=== PATIENT | female | born 1975 | race Caucasian/White ===

== ENCOUNTER 2018-01-18 18:05 | Emergency (ER) | payer MEDICAID, SELFPAY ==
[2018-01-18 18:06] VITALS: BP 134/85; PULSE 77; RESP 18; TEMP 36.6; O2SAT 99; BMI 21.9
--- NOTE | 2018-01-18 18:24 | ED.VISSUMM ---
- ER Visit Summary Date of Service: 01/18/18 Chief Complaint: Right eye pain History of Present Illness: The patient is a 42 F presents to the emergency department with right eye pain. The patient symptoms began yesterday. She cannot recall any injury. She states that she had burning in her eye and felt as if there was something in there. She denies any new exposures. She does wear glasses, but has not worn them in approximately 6 months. She was not doing anything when there was significant dust. She states that she does wear mascara, but does not recall any trauma. She denies any visual change. The eye has been watering, but she states her vision is been normal. Physical Examination: Name is relatively unremarkable. There is some focal injection of the conjunctiva at the lateral right eye. There is no appreciable foreign body. There is no hypopyon or hyphema. There is a focal area of injection consistent with episcleritis. There is no foreign body under the lid. There is no hypopyon or hyphema. Pupils are equal round reactive. Test Results: [] Emergency Department Course and Treatment: We do not have floor seen so I was unable to do complete examination. However, under slit lamp, there is no evidence of hypopyon or hyphema. I do not see any obvious dendrites. The patient does have a focal area consistent with episcleritis. Patient was discussed with Dr. Barbour. He does agree with my plan for short course of analgesics and topical antibody ointment. If she has not improved within 12 hours, he states that he will see her in the morning in the ophthalmology clinic. The patient is comfortable this plan of care and will be discharged. Treatment Plan: [] Disposition: Discharge Impression: 1. Episcleritis of the right eye This note was generated with [employer] dictation software. It may contain incorrect words, spelling, and punctuation that were not noted in review of the chart prior to signing ED Disposition - Plan for ED Patient: Chief Complaint: Eye Problem Instructions: ED Chemical Conjunctivitis Prescriptions: Oxycodone HCl/Acetaminophen [Percocet 5/325] 1 tab PO Q6H PRN PRN 2 Days #6 tab PRN Reason: Pain Referrals: Tony Barbour MD [STAFF PHYSICIAN] -
[2018-01-18] MEDS: Tetracaine 0.5% Ophthalmic Bottle 1 DRP RIGHT EYE (18:49)
[2018-01-18] MEDS: Erythromycin Base 1 OPTH.TUBE 1 APPLIC RIGHT EYE (18:59)
== END 2018-01-18 19:07 | disposition home or self-care (01) ==
LOC: ED 18:57
PROVIDERS: Emergency Provider Emergency Medicine; Family Provider Family Medicine; PCP Family Medicine
DX: H15.101 Unspecified episcleritis, right eye (principal); F41.9 Anxiety disorder, unspecified; Z72.0 Tobacco use
CPT/HCPCS: 99282

== ENCOUNTER → 2018-01-29 15:42 | Outpatient (CLI) | payer SELFPAY ==
--- NOTE | 2018-01-29 15:48 | RAD_ITS ---
STUDY: X-RAY CHEST REASON FOR EXAM: Female, 42 years old. Eye pain. Infection versus virus TECHNIQUE: PA and lateral views of the chest. COMPARISON: None. FINDINGS: The lungs are clear and expanded. There is no demonstrated pleural abnormality. Normal size heart. Normal mediastinum and sushant. Normal visualized pulmonary arteries. Normal visualized aortic arch and descending thoracic aorta. Normal visualized thoracic spine. Normal visualized ribs, clavicles, and shoulders. There is no demonstrated abnormality of the visualized soft tissue structures of the upper abdomen. RAD/Chest PA and Lateral IMPRESSION: Normal x-ray examination of the chest. Electronically Signed: Leonardo Alvarez DO at 9:10 EDT Tel , Service support ,
[2018-01-29 17:49] LABS: Color, Urine Yellow (Yellow); Glucose, Dipstick Normal (Normal); Ketone-Dipstick Negative (Negative); Leukocyte Esterase-Dipstick Negative /ul (Negative); Nitrite-Dipstick Negative (Negative); Occult Blood-Urine 150 /ul (Negative); Protein-Dipstick Negative (Negative); Specific Gravity, Urine 1.025 (1.002-1.030); Urine Bilirubin Dipstick Negative (Negative); Urine Clarity Sl. Cloudy (Clear); Urine Urobilinogen Normal (Normal)
[2018-01-29 18:06] LABS: CRP < 2.90 mg/L (0.0-3.0); Rheumatoid Factor < 10.0 IU/mL (<15)
[2018-01-29 18:54] LABS: Erythrocyte Sedimentation Rate 1 mm/hr (0-20)
[2018-02-01 03:07] LABS: Cytoplasmic Ab (C-ANCA) <1:20 titer (Neg:<1:20); QNTFERON TB Ag Minus Nil Value 0.01 IU/mL (.); QNTFERON TB Ag Value 0.04 IU/mL (.); QNTFERON TB Mitogen Value > 10.00 IU/mL (.); QNTFERON TB Nil Value 0.03 IU/mL (.)
[2018-02-01 09:09] LABS: Angiotensin Convert Enzyme 44 U/L (14-82); Perinuclear Ab (P-ANCA) <1:20 titer (Neg:<1:20); QNTIFERON TB Gold Negative (Negative)
[2018-02-01 10:07] LABS: ANTINUCLEAR ANTIBODIES DIRECT Negative (Negative)
== END ==
PROVIDERS: Family Provider Family Medicine; PCP Family Medicine; Visit Provider Ophthalmology
DX: H15.011 Anterior scleritis, right eye (principal)
CPT/HCPCS: 36415; 71046; 81002; 82164; 85652; 86038; 86140; 86256; 86431; 86480

== ENCOUNTER 2018-03-26 17:38 | Emergency (ER) | payer OTHER, SELFPAY ==
[2018-03-26 17:38] VITALS: BP 109/79; PULSE 80; RESP 16; TEMP 37.1; O2SAT 98; BMI 20.8
--- NOTE | 2018-03-26 17:49 | RAD_ITS ---
STUDY: X-RAY - RIGHT KNEE REASON FOR EXAM: Female, 42 years old. Trauma TECHNIQUE: 3 view(s) of the knee. COMPARISON: 01/09/2017 FINDINGS: Again noted are 2 cortical screws in the proximal tibia. There is no evidence of fracture or dislocation. There are no significant degenerative changes. There are no radiodense foreign bodies. RAD/Knee 3 Views IMPRESSION: No fracture or dislocation. Electronically Signed: Moe Johnston, at 18:45 EDT Tel , Service support ,
--- NOTE | 2018-03-26 19:02 | ED.VISSUMM ---
- ER Visit Summary Date of Service: 03/26/18 Chief Complaint: Right knee pain History of Present Illness: The patient is a [address] Brown and Dr. Saldaña had surgery on her right knee 2 years ago for recurrent patellar dislocations. Patient reports that her dog hit the side of her knee 2 days ago and now when she walks it feels as though her kneecap dislocates repeatedly. She describes a sharp, stabbing pain is 9 out of 10 with walking 7 out of 10 at rest. She denies any paresthesias. No other injuries. Physical Examination: Vitals: Stable. Afebrile. General: Well-nourished and well-developed. Head: Normocephalic atraumatic. Neck: Supple, no lymphadenopathy. No JVD. Nontender. Cardiovascular: Regular rate and rhythm. No murmurs. Respiratory: No respiratory distress. Clear to auscultation bilaterally. Abdominal: Soft, nontender, nondistended, normal bowel sounds. No guarding, rebound, or peritoneal signs. Back: Nontender. Extremities: Her tenderness palpation to the right patellar tendon. She is able to extend her knee without any difficulty. I have had her go through full range of motion. She has minimal pain. I do not appreciate any laxity in the patellar tendon. No edema. Skin: Normal color, no rash. Neurologic: Alert and oriented ?3. Cranial nerves II through XII are intact. Normal strength and sensation. Psych: Normal affect. Test Results: Right knee x-ray shows no acute disease. The hardware is intact. Emergency Department Course and Treatment: An [facility] report was obtained which shows she has had 6 prescriptions for opiates in the past year. She is given a dose of oxycodone here. Treatment Plan: Patient will be discharged in a knee immobilizer. Given a prescription for oxycodone. Instructed to follow Dr. Saldaña in 3 days as previously scheduled. Disposition: To home in improved and stable condition. Impression: 1. Right knee pain, acute. This note was generated with [employer] software. It may contain incorrect words, spelling, and punctuation that were not noted in review of the chart prior to signing ED Disposition - Plan for ED Patient: Disposition: Home or Assisted Living Chief Complaint: Lower Extremity Injury Instructions: ED Knee Pain [facility] Prescriptions: Oxycodone HCl/Acetaminophen [Percocet 5/325] 1 tablet PO Q6H PRN PRN 3 Days #12 tablet PRN Reason: Pain Naproxen [Naprosyn] 500 mg PO BID #14 tablet Referrals: Aimee Saldaña DO [STAFF PHYSICIAN] - Keep [facility] appointment
[2018-03-26] MEDS: Naproxen 250 MG Tablet 500 MG PO (19:10)
[2018-03-26] MEDS: oxyCODONE 5 MG Tablet 10 MG PO (19:11)
== END 2018-03-26 19:20 | disposition home or self-care (01) ==
LOC: ED 18:49
PROVIDERS: Emergency Provider Emergency Medicine; Family Provider Family Medicine; PCP Family Medicine
DX: M25.561 Pain in right knee (principal); F41.9 Anxiety disorder, unspecified; Z79.899 Other long term (current) drug therapy
CPT/HCPCS: 73562; 99284

== ENCOUNTER 2018-04-23 17:37 | Emergency (ER) | payer OTHER, SELFPAY ==
[2018-04-23 17:38] VITALS: BP 126/73; PULSE 96; RESP 16; TEMP 36.7; O2SAT 97; BMI 21.1
--- NOTE | 2018-04-23 17:45 | RAD_ITS ---
STUDY: X-RAY - RIGHT KNEE REASON FOR EXAM: Female, 43 years old. Right knee pain. TECHNIQUE: 3 view(s) of the knee. COMPARISON: March 26, 2018 FINDINGS: Normal visualized distal femur. Normal visualized proximal fibula. There are 2 stable appearing screws traversing the proximal tibia. Normal proximal tibiofibular articulation. Normal medial femorotibial compartment. Normal lateral femorotibial compartment. Normal patellofemoral articulation. The soft tissue structures are unremarkable. RAD/Knee 3 Views IMPRESSION: Stable examination. Electronically Signed: Anabelle Nobles MD at 18:29 EDT Tel , Service support ,
--- NOTE | 2018-04-23 18:45 | ED.VISSUMM ---
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 She reports that while getting out of her car today she twisted laterally on a planted right foot and has a stabbing pain in her right knee. She reports pain is 9 out of 10 with walking 7 out of 10 at rest. She did not fall. No other injuries. Physical Examination: Vitals: Stable. Afebrile. General: Well-nourished and well-developed. Head: Normocephalic atraumatic. Neck: Supple, no lymphadenopathy. No JVD. Nontender. Cardiovascular: Regular rate and rhythm. No murmurs. Respiratory: No respiratory distress. Clear to auscultation bilaterally. Abdominal: Soft, nontender, nondistended, normal bowel sounds. No guarding, rebound, or peritoneal signs. Back: Nontender. Extremities: Moderate diffuse tenderness palpation over her entire right knee. There is no point tenderness. Her extensor mechanism is intact. She has pain, but no ligamentous instability with anterior/posterior drawer or medial/lateral stress. She has a negative Mireya bilaterally. Skin: Normal color, no rash. Neurologic: Alert and oriented ?3. Cranial nerves II through XII are intact. Normal strength and sensation. Psych: Normal affect. Test Results: X-ray shows no acute disease. The hardware is intact. Emergency Department Course and Treatment: Patient was treated with naproxen. She refused crutches. Treatment Plan: Patient will be discharged instructions to follow-up with Dr. Saldaña in 1 week if not improving. She has a knee brace and crutches at home. She will be placed on naproxen. Return to the emergency department for any worsening symptoms. Disposition: To home in improved and stable condition. Impression: 1. Right knee pain, acute on chronic. This note was generated with [employer] dictation software. It may contain incorrect words, spelling, and punctuation that were not noted in review of the chart prior to signing ED Disposition - Plan for ED Patient: Disposition: Home or Assisted Living Chief Complaint: Lower Extremity Injury Instructions: ED Knee Pain [facility]O Prescriptions: Naproxen [Naprosyn] 500 mg PO BID #14 tablet Referrals: Chicorelli,Aimee, DO [STAFF PHYSICIAN] - 1 Week if not improving
[2018-04-23] MEDS: Naproxen 250 MG Tablet 500 MG PO (19:28)
== END 2018-04-23 19:30 | disposition home or self-care (01) ==
PROVIDERS: Emergency Provider Emergency Medicine; Family Provider Family Medicine; PCP Family Medicine
DX: M25.561 Pain in right knee (principal); G89.29 Other chronic pain; X50.1XXA Overexertion from prolonged static or awkward postures, initial encounter; Y93.9 Activity, unspecified; Y92.9 Unspecified place or not applicable; F41.9 Anxiety disorder, unspecified; G47.00 Insomnia, unspecified; Z90.89 Acquired absence of other organs; Z90.49 Acquired absence of other specified parts of digestive tract; Z79.899 Other long term (current) drug therapy
CPT/HCPCS: 73562; 99282

== ENCOUNTER → 2018-07-02 11:22 | Outpatient (CLI) | payer OTHER, SELFPAY ==
[2018-07-05 11:36] LABS: HPV HC, High Risk Negative (Negative)
== END ==
PROVIDERS: Visit Provider Obstetrics & Gynecology
DX: Z12.4 Encounter for screening for malignant neoplasm of cervix (principal)
CPT/HCPCS: 87624; 88175; G0145

== ENCOUNTER 2018-07-10 06:28 | Day surgery (SDC) | payer OTHER, SELFPAY ==
--- NOTE | 2018-07-04 16:30 | EKG12_ITS ---
Test Reason : PREOP Blood Pressure : / mmHG Vent. Rate : 056 BPM Atrial Rate : 056 BPM P-R Int : 140 ms QRS Dur : 084 ms QT Int : 430 ms P-R-T Axes : 042 067 037 degrees QTc Int : 414 ms Sinus bradycardia Otherwise normal ECG Confirmed by ZACHARY LAMA ([id number]), fashion editor FERNANDA CEE ([id number]) on 07/09/2018 2:47:37 PM Referred By: Vincenzo Kimbrough Confirmed By:ZACHARY LAMA
[2018-07-04 17:13] LABS: Hemoglobin 13.3 g/dl (12.0-15.0); Mean Corp Hgb Conc 33.3 g/gl (32-36); Mean Corpuscular Hgb 30.9 pg (27.0-32.0); Mean Corpuscular Volume 92.8 fL (81-99); Mean Platelet Vol. 9.9 fl (6.2-12.0); Platelet Count 277 K/mm3 (150-450); RBC Distribution Width CV 12.3 % (11.6-14.6); RBC Distribution Width SD 41.7 fl (35.1-43.9); Red Blood Count 4.31 M/mm3 (4.2-5.4); White Blood Count 9.7 K/mm3 (4.4-11.0)
[2018-07-04 17:28] LABS: Scan Indicated on CBC? Y/N NO
[2018-07-04 17:44] LABS: Pregnancy, Serum, hCG Quali. NEGATIVE Negative (0-9 Nonpreg)
[2018-07-04 17:52] LABS: Partial Thromboplast Time 31.7 Seconds (24.1-36.2)
[2018-07-05 09:23] LABS: AST(SGOT) 14 U/L (15-37); Alanine Aminotransfer ALT/SGPT 19 U/L (13-56); Albumin, Serum 4.3 g/dL (3.2-5.0); Alkaline Phosphatase 78 U/L (45-117); Globulin 3.3 g/dL (2.2-4.2); Protein, Total 7.6 g/dL (6.4-8.2)
[2018-07-10 06:52] VITALS: BP 110/63; PULSE 89; RESP 20; TEMP 36.4; O2SAT 99; BMI 22.6
[2018-07-10 06:53] LABS: Internal QC Validated? YES +Cl - CLEAR BKGD; Pregnancy, Urine Negative Negative
--- NOTE | 2018-07-10 08:23 | DCINST_ITS ---
You will use the following diet at home:: No restrictions Your food should be the consistency of: Regular Discharge Activity: Return to Normal Activity, May Drive, May not drive while taking narcotic pain medications., May Shower Return to work on:: 07/15/18 May shower in (days): 0 May resume sexual activity in: 4-6 weeks Call your doctor if your incision/area has: Sudden Increased Bleeding, Increased Pain/ Swelling, Foul Smelling Discharge Call your doctor if you observe: Fever of 101 or Higher, Inability to urinate, Inability to have a bowel movement, Using more than one pad per hour, Shortness of breath, Chest pain, Calf discomfort, Uncontrolled pain Cleanse incision/area with: Soap & Water Allergies/Adverse Reactions: Allergies docosahexanoic acid [From [facility]] Allergy (Verified 07/05/18 08:15) Hives iron amino acid chelate [From [facility]] Allergy (Verified 07/05/18 08: 15) Hives methyltetrahydrofolate gluc.,folic [From [facility]] Allergy (Verified 07/05/18 08:15) Hives vitamins combination no.39 [From [facility]] Allergy (Verified 07/05/18 08:15) Hives hydrocodone Adverse Reaction (Verified 07/05/18 08:15) Other morphine Adverse Reaction (Verified 07/05/18 08:15) Vomiting topiramate [From Topamax] Adverse Reaction (Verified 07/05/18 08:16) Other B12, DEFFICIRNCY, DIARRHEA Medications to take at Discharge Zolpidem Tartrate [Ambien] 10 mg PO QHS PRN 02/25/16 ALPRAZolam [Xanax] 1 mg PO DAILY 08/20/16 Clonazepam [Klonopin] 1 mg PO TID 01/18/18 ALPRAZolam [Xanax] 1.5 mg PO QHS 07/05/18 Ibuprofen 600 mg PO 4X/DAY #30 tab 07/10/18 Oxycodone [Oxyir] 5 mg PO Q4H PRN PRN 7 Days #14 tab 07/10/18 The following prescriptions were given: Oxycodone [Oxyir] 5 mg PO Q4H PRN PRN 7 Days #14 tab PRN Reason: Pain Ibuprofen 600 mg PO 4X/DAY #30 tab Primary Care Physician: Tony Brown MD [Primary Care Provider] - Test Results: Test results from this visit will be discussed in further detail at your follow- up appointment, if applicable. Please Follow Up With: Vincenzo Kimbrough MD When: 2 weeks Proposed Discharge Date: 07/10/18
--- NOTE | 2018-07-10 08:23 | PCM.OPRPT ---
Problem List (1) MERNA (stress urinary incontinence, female) Status: Chronic Report of Operation Date of Procedure: 07/10/18 Pre-Operative Diagnosis: Stress Urinary Incontinence Post-Operative Diagnosis: Same Surgery/Procedure Performed:: Transvaginal Obturator Miduretral Sling Placement, Cystoscopy Description of Surgical Findings:: Hypermobile urethra. Small cystocele. city magistrate: Mack Pacheco Type of Anesthesia:: General - LMA Anesthesiologist: James Mcgrath Special Medications: none Specimen's removed: none Drains: none Estimated Blood Loss (mL): 100cc Fluids Replaced: 1000cc LR Description of Procedure: Radha was taken to the OR with IV running. She was given Cefotetan 2 grams intravenously prior to the procedure for surgical prophylaxis. MAC anesthesia was introduced without complication. She was then prepped and draped in the dorsal lithotomy position. SCDs were in place from the preoperative area through surgery and into recovery. The bladder was drained. A 2 centimeter midline incision was made from about 1 centimeter distal to the urethral meatus superiorly. The vaginal mucosal was then dissected laterally on both sides. Using a Metzembaum scissors a tunnel was made to the obturator membrane bilaterally. A trocar guide was then placed in this defect on the left side. The sling was then placed through the obturator membrane with exit about 2 cm superior to the urethral meatus and 2 cm lateral to the crural fold. In a similar fashion the sling was placed on the right side. The sling was then adjusted for minimal tension under the urethra. The ends of the sling were then trimmed. The vaginal mucosa was reapproximated with 3-0 Vicryl suture. A cystoscopy was then performed with no bladder mucosal defects noted. She was then reversed from anesthesia and taken to the recovery room in stable condition. Sponge, needle, and instrument counts were correct. Grafts/Implants Used: Desara Midurethral SLing - Complications none - Admit VTE Documentation VTE Present on Admission: No VTE Mechan Device Prophylaxis: SCD's VTE Pharm Prophylaxis ordered?: No Reason prophylaxis not ordered:: Treatment Not Indicated
--- NOTE | 2018-07-10 08:35 | OP.PCM_ITS ---
Problem List (1) MERNA (stress urinary incontinence, female) Status: Chronic Report of Operation Date of Procedure: 07/10/18 Pre-Operative Diagnosis: Stress Urinary Incontinence Post-Operative Diagnosis: Same Surgery/Procedure Performed:: Transvaginal Obturator Miduretral Sling Placement , Cystoscopy Description of Surgical Findings:: Hypermobile urethra. Small cystocele. engineering vice president: Mack Pacheco Type of Anesthesia:: General - LMA Anesthesiologist: James Mcgrath Special Medications: none Specimen's removed: none Drains: none Estimated Blood Loss (mL): 100cc Fluids Replaced: 1000cc LR Description of Procedure: Radha was taken to the OR with IV running. She was given Cefotetan 2 grams intravenously prior to the procedure for surgical prophylaxis. MAC anesthesia was introduced without complication. She was then prepped and draped in the dorsal lithotomy position. SCDs were in place from the preoperative area through surgery and into recovery. The bladder was drained. A 2 centimeter midline incision was made from about 1 centimeter distal to the urethral meatus superiorly. The vaginal mucosal was then dissected laterally on both sides. Using a Metzembaum scissors a tunnel was made to the obturator membrane bilaterally. A trocar guide was then placed in this defect on the left side. The sling was then placed through the obturator membrane with exit about 2 cm superior to the urethral meatus and 2 cm lateral to the crural fold. In a similar fashion the sling was placed on the right side. The sling was then adjusted for minimal tension under the urethra. The ends of the sling were then trimmed. The vaginal mucosa was reapproximated with 3-0 Vicryl suture. A cystoscopy was then performed with no bladder mucosal defects noted. She was then reversed from anesthesia and taken to the recovery room in stable condition. Sponge, needle, and instrument counts were correct. Grafts/Implants Used: Desara Midurethral SLing - Complications none - Admit VTE Documentation VTE Present on Admission: No VTE Mechan Device Prophylaxis: SCD's VTE Pharm Prophylaxis ordered?: No Reason prophylaxis not ordered:: Treatment Not Indicated
[2018-07-10 09:17] VITALS: BP 110/63; BP 130/81; PULSE 74; RESP 18; TEMP 36.7; O2SAT 100
[2018-07-10 09:30] VITALS: BP 110/63; BP 122/82; PULSE 68; RESP 18; O2SAT 100
[2018-07-10 09:45] VITALS: BP 110/63; BP 114/80; PULSE 73; RESP 18; O2SAT 99
[2018-07-10 09:51] VITALS: BP 110/63; BP 115/61; PULSE 60; RESP 18; TEMP 36.3; O2SAT 100
[2018-07-10 10:19] VITALS: BP 110/63
== END 2018-07-10 10:32 | disposition home or self-care (01) ==
LOC: SDC 06:29 → AC 06:29
PROVIDERS: Family Provider Family Medicine; PCP Family Medicine; Visit Provider Obstetrics & Gynecology
PROC: 0TJB8ZZ Inspection of Bladder, Via Natural or Artificial Opening Endoscopic (ICD-10-PCS; CPT 57288; principal; 2018-07-10 08:20)
DX: N39.3 Stress incontinence (female) (male) (principal); N81.10 Cystocele, unspecified; Z79.899 Other long term (current) drug therapy; E78.00 Pure hypercholesterolemia, unspecified; Z86.2 Personal history of diseases of the blood and blood-forming organs and certain disorders involving the immune mechanism; K58.9 Irritable bowel syndrome, unspecified; F41.9 Anxiety disorder, unspecified; F63.81 Intermittent explosive disorder; Z87.891 Personal history of nicotine dependence
CPT/HCPCS: 00860; 57288; 36415; 80076; 81025; 84703; 85027; 85610; 85730; 86850; 86900; 93005; J7120; C1771; J2405

== ENCOUNTER → 2018-07-16 11:35 | Outpatient (CLI) | payer OTHER, SELFPAY | PROVIDERS: Visit Provider Obstetrics & Gynecology | DX: N39.0 Urinary tract infection, site not specified (principal) | CPT/HCPCS: 87086; 87088 ==

== ENCOUNTER 2019-02-14 19:40 | Emergency (ER) | payer OTHER, SELFPAY ==
[2018-10-14 11:36] VITALS: BMI 23.5
[2019-02-14 19:40] VITALS: BP 143/90; PULSE 94; RESP 16; TEMP 35.9; O2SAT 99; BMI 21.6
--- NOTE | 2019-02-14 19:59 | RAD_ITS ---
STUDY: X-RAY - LEFT TIBIA AND FIBULA REASON FOR EXAM: Female, 43 years old. Leg pain TECHNIQUE: 2 view(s) of the tibia and fibula were obtained. COMPARISON: None. FINDINGS: Normal visualized tibia. Normal visualized fibula. The soft tissue structures are unremarkable. RAD/Tibia & Fibula 2 Views IMPRESSION: Normal x-ray examination of the tibia and fibula. Electronically Signed: Leonardo Alvarez DO at 20:36 EDT Tel , Service support ,
--- NOTE | 2019-02-14 20:08 | RAD_ITS ---
STUDY: X-RAY - LEFT FOOT CLINICAL: Female, 43 years old. Left foot pain TECHNIQUE: 3 view(s) of the foot. COMPARISON: None. FINDINGS: Normal talus, calcaneus, and tarsal bones. Normal visualized subtalar, talonavicular, calcaneocuboid, tarsal and tarsometatarsal articulations. Normal metatarsi. Normal metatarsophalangeal joint of the great toe. Normal tibial and fibular sesamoid bones. Normal interphalangeal joint of the great toe. Normal phalanges of the great toe. Normal second through fifth metatarsophalangeal joints. Normal interphalangeal joints and phalanges of the lesser toes. The soft tissue structures are unremarkable. RAD/Foot min 3 Views IMPRESSION: Normal x-ray examination of the foot. Electronically Signed: Leonardo Alvarez DO at 20:23 EDT Tel , Service support ,
--- NOTE | 2019-02-14 21:00 | ED.DCSUM_ITS ---
- ER Visit Summary Date of Service: 02/14/19 Chief Complaint: [Injury to left leg] History of Present Illness: The patient is a 43 F [presents to the emergency department after sustaining an injury to her left leg yesterday. Patient states that she was teaching her daughter how to play hopscotch and she jumped and immediately felt discomfort in her left calf. Patient states that subsequently then she developed pain into her foot and now pain all the way up the leg to her left hip. Patient states she iced her leg all night and had it wrapped in an Herminio wrap. Patient has pain with ambulation. She denies any other injuries.] Physical Examination: [HEENT-PERRLA, EOMI. Cranial nerves II through XII grossly intact. TMs clear. Mucous membranes moist. No adenopathy. Cardiovascular-regular rate and rhythm without murmur or ectopy Lungs-clear to auscultation, chest wall stable without crepitus or subcu emphysema Abdomen-normoactive bowel sounds, soft, nontender, no rebound or rigidity, no peritoneal signs. Extremities-intact ?4, normal range of motion, normal pulses, atraumatic. Left leg-patient has tenderness over the distal calf. The Achilles tendon is intact and she has a normal Enrique's test. Patient also has some tenderness over the dorsum of the midfoot. No obvious deformity. No ecchymosis or bruising noted. Patient has no pain at the knee and she has normal range of motion at the knee. Patient has some mild tenderness into her left buttock. Deep tendon reflexes are plus 2 out of 4 bilaterally at the patella and Achilles.] Test Results: X-rays of the left foot as well as left tib-fib obtained were normal.] Emergency Department Course and Treatment: [Patient refused crutches. She was dispensed for Fouke for pain.] Treatment Plan: [Patient to follow-up with her primary care physician or her orthopedic surgeon within next 5 to 7 days.] Disposition: [Discharged home stable condition] Impression: [Left calf strain Left foot sprain] This note was generated with [employer] dictation software. It may contain incorrect words, spelling, and punctuation that were not noted in review of the chart prior to signing ED Disposition - Plan for ED Patient: Referrals: Tony Brown MD [Primary Care Provider] -
--- NOTE | 2019-02-14 21:00 | ED.DEP ---
ED Disposition - Plan for ED Patient: Instructions: ED Sprain Foot, ED Strain Muscle Ext Prescriptions: Oxycodone HCl/Acetaminophen [Percocet 5/325] 1 tab PO Q6H PRN PRN 3 Days #12 tab PRN Reason: Pain Referrals: Tony Brown MD [Primary Care Provider] - 5-7 Days
[2019-02-14 21:01] VITALS: BP 138/78; PULSE 87; RESP 16; O2SAT 98
[2019-02-14] MEDS: oxyCODONE 5 MG Tablet PO (21:09)
== END 2019-02-14 21:10 | disposition home or self-care (01) ==
LOC: ED 20:25
PROVIDERS: Emergency Provider Emergency Medicine; Family Provider Family Medicine; PCP Family Medicine
DX: S86.912A Strain of unspecified muscle(s) and tendon(s) at lower leg level, left leg, initial encounter (principal); S93.602A Unspecified sprain of left foot, initial encounter; X58.XXXA Exposure to other specified factors, initial encounter; Y93.39 Activity, other involving climbing, rappelling and jumping off; Y92.9 Unspecified place or not applicable; F41.9 Anxiety disorder, unspecified; G43.909 Migraine, unspecified, not intractable, without status migrainosus; Z79.899 Other long term (current) drug therapy; Z72.0 Tobacco use
CPT/HCPCS: 73590; 73630; 99282

== ENCOUNTER 2019-07-06 17:31 | Emergency (ER) | payer OTHER, SELFPAY ==
[2019-07-06 17:33] VITALS: BP 137/78; PULSE 94; RESP 16; TEMP 36.3; O2SAT 98; BMI 23.7
--- NOTE | 2019-07-06 17:50 | RAD_ITS ---
STUDY: X-RAY - LEFT TIBIA AND FIBULA REASON FOR EXAM: Female, 44 years old. Left lower leg pain without reported injury TECHNIQUE: 2 view(s) of the tibia and fibula were obtained. COMPARISON: 02/14/2019 FINDINGS: Normal visualized tibia. Normal visualized fibula. The soft tissue structures are unremarkable. RAD/Tibia & Fibula 2 Views IMPRESSION: Normal x-ray examination of the tibia and fibula. Electronically Signed: Kaushik King MD (Brooks) at 18:10 EDT , Service support ,
--- NOTE | 2019-07-06 17:50 | RAD_ITS ---
STUDY: X-RAY - LUMBAR SPINE REASON FOR EXAM: Female, 44 years old. Pain without reported injury TECHNIQUE: 3 view(s) of the lumbar spine were obtained. COMPARISON: None FINDINGS: Normal lumbar lordosis. There is no substantial scoliosis. There is a normal alignment of the vertebrae. Normal vertebral bodies and endplates. Trace disc space narrowing at L4-L5 and L5-S1. There is no demonstrated fracture. Cholecystectomy clips are noted. RAD/Lumbar Spine 2 or 3 Views IMPRESSION: Minor degenerative disc disease. Electronically Signed: Kaushik King MD (Brooks) at 18:09 EDT , Service support ,
--- NOTE | 2019-07-06 18:19 | ED.VISSUMM ---
- ER Visit Summary Date of Service: 07/06/19 Chief Complaint: Left leg pain History of Present Illness: The patient is a 44 F with left leg pain for days. The pain is in her left lower leg medially and radiates down into her foot, medially. Denies injury. She does have a history of left hip pain. She had left hip pain for over a year. Denies back pain. Denies any history of blood clots, immobilization, or travel. No other symptoms. Physical Examination: Patient has pain on palpation medially to her left lower extremity starting at the distal tibia down into the foot. Inspection is normal. No swelling. Calf is nontender. Good and strong pulses symmetrically. Good range of motion. Hip unremarkable on exam. Back is nontender. Test Results: X-rays of her back show degenerative changes. Tib-fib x-rays are negative. Emergency Department Course and Treatment: I suspect this is a radicular type pain. There is nothing to suggest that is a DVT. X-rays as above. Skin is normal. Muscle compartments are normal. Patient will be treated with a short course of pain medicine. Continue [id number] remedies. She does not tolerate gabapentin. She is requesting a new primary care doctor. I referred her to Dr. Suarez who is on-call for the next available patient. Treatment Plan: As above Disposition: Discharge Impression: 1. Left lower extremity pain This note was generated with [employer] dictation software. It may contain incorrect words, spelling, and punctuation that were not noted in review of the chart prior to signing ED Disposition - Plan for ED Patient: Referrals: Tony Brown MD [Primary Care Provider] -
--- NOTE | 2019-07-06 18:22 | ED.DEP ---
ED Disposition - Plan for ED Patient: Instructions: Sprain, Ankle, with X-Ray Prescriptions: Oxycodone HCl/Acetaminophen [Percocet 5/325] 1 tab PO Q6H PRN PRN 2 Days #8 tab PRN Reason: Pain Prescription Printed Referrals: Gallo Suarez DO [NON CLINICAL AFFILIATE] -
[2019-07-06 18:31] VITALS: BP 108/66; PULSE 71; RESP 15; O2SAT 97
== END 2019-07-06 18:52 | disposition home or self-care (01) ==
LOC: ED 18:23
PROVIDERS: Emergency Provider Emergency Medicine; Family Provider Family Medicine; PCP Family Medicine
DX: M79.605 Pain in left leg (principal); M25.552 Pain in left hip; F41.9 Anxiety disorder, unspecified; Z72.0 Tobacco use
CPT/HCPCS: 72100; 73590; 99282

== ENCOUNTER 2019-11-19 11:57 | Emergency (ER) | payer MEDICAID, SELFPAY ==
[2019-11-19 11:58] VITALS: BP 135/74; PULSE 85; RESP 16; TEMP 36.8; O2SAT 99; BMI 25.0
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
[2019-11-19] MEDS: Ketorolac 60 MG/2 ML Vial IM (14:39)
[2019-11-19 14:51] VITALS: PULSE 88; RESP 17; O2SAT 97
[2019-11-19 14:56] VITALS: PULSE 88; RESP 17; O2SAT 97
== END 2019-11-19 14:57 | disposition home or self-care (01) ==
LOC: ED 14:37
PROVIDERS: Emergency Provider Emergency Medicine
DX: R51 Headache (principal); M54.5 Low back pain; V89.2XXA Person injured in unspecified motor-vehicle accident, traffic, initial encounter; Y93.9 Activity, unspecified; Y92.9 Unspecified place or not applicable; F41.9 Anxiety disorder, unspecified; Z79.899 Other long term (current) drug therapy
CPT/HCPCS: 96372; 99282

== ENCOUNTER 2020-02-04 12:46 | Emergency (ER) | payer MEDICAID, SELFPAY ==
[2020-02-04 12:47] VITALS: BP 148/91; PULSE 123; RESP 20; TEMP 36.8; O2SAT 98; O2SAT 99; BMI 27.5
--- NOTE | 2020-02-04 13:10 | ED.VIS.GEN ---
History of Present Illness Chief Complaint: Suicidal Informant: Patient, - - Police Narrative: Patient presents with police for possible suicidal ideation. Patient states that my is a radha and she will sometimes take photos of knives or guns and sent to him when they are not getting along. Patient states she went to her daughters to try to sawing and assembly supervisor her younger child and take her to the sitter when the older child began yelling at her that she had a gun. Older daughter called police. Police interview with the daughter states that the patient made statements that she has no reason to live. Patient denies suicidal ideation and states this is all a misunderstanding. - Past Medical History (1) Anxiety Status: Chronic (2) Intermittent explosive disorder Status: Chronic (3) Insomnia Status: Chronic Past Medical History - Allergies and Home Meds Allergies/Adverse Reactions: Allergies docosahexanoic acid [From [facility]] Allergy (Verified 02/04/20 12:47) Hives iron amino acid chelate [From [facility]] Allergy (Verified 02/04/20 12:47) Hives methyltetrahydrofolate gluc.,folic [From [facility]] Allergy (Verified 02/04/20 12:47) Hives vitamins combination no.39 [From [facility]] Allergy (Verified 02/04/20 12:47) Hives hydrocodone Adverse Reaction (Verified 02/04/20 12:47) Other morphine Adverse Reaction (Verified 02/04/20 12:47) Vomiting topiramate [From Topamax] Adverse Reaction (Verified 02/04/20 12:47) Other B12, DEFFICIRNCY, DIARRHEA Primary Care Physician: Care Physician,No Primary [Primary Care Provider] - Prior records reviewed: Yes Lives: With Family Smoking Status: Current every day smoker Review of Systems General: Denies: Chills, Fever Eyes: Denies: Visual changes - bilaterally ENT: Denies: Bilateral ear pain Cardiovascular: Denies: Chest pain Respiratory: Denies: Dyspnea, Cough Gastrointestinal: Denies: Vomiting Genitourinary: Denies: Dysuria Musculoskeletal: Denies: Swelling, Extremity Pain Neurological: Denies: Headache Psych: Reports: Anxiety Hematologic: Denies: Easy bruising, Easy bleeding Allergy: Denies: Uticaria Physical Exam Vital Signs/Narrative: Vital Signs Temp Pulse Resp BP Pulse Ox 02/04/20 12:47 98.3 F 123 H 20 H 148/91 H 99 Inital Vital Signs reviewed: Yes General: Well nourished, Well developed Head: Normocephalic ENT: Moist mucous membranes Neck: Supple Cardiovascular: Tachycardia Respiratory: No distress, CTA bilaterally Abdomen: Soft, Nontender Extremities: Nontender Skin: Normal color Neurological: Alert, Oriented x3 Psychological: Agitated - Agitated and yelling. Noncompliant with staff. Patient denies suicidal ideation and states this is all a misunderstanding. Diagnostic/Tx/Re-eval Laboratory Results 02/04/20 02/04/20 02/04/20 13:25 13:25 13:25 WBC 15.9 H RBC 4.69 Hgb 14.3 Hct 42.2 MCV 90.0 MCH 30.5 MCHC 33.9 RDW Std Deviation 40.4 RDW Coeff of Gladis 12.4 Plt Count 318 MPV 9.1 Immature Gran % (Auto) 0.400 Neut % (Auto) 78.2 H Lymph % (Auto) 16.9 L Wagoner % (Auto) 4.0 Eos % (Auto) 0.3 Baso % (Auto) 0.2 Absolute Neuts (auto) 12.4 H Absolute Lymphs (auto) 2.68 Nucleated RBC % 0 Sodium 140 Potassium 3.9 Chloride 109 H Carbon Dioxide 24.0 Anion Gap 7 BUN 8 Creatinine 0.91 Estim Creat Clear Calc 72.47 Est GFR (MDRD) Af Amer 87 Est GFR (MDRD) Non-Af 72 BUN/Creatinine Ratio 8.8 L Glucose 99 Calcium 9.8 Serum , Qual Urine Opiates Screen Urine Methadone Screen Ur Barbiturates Screen Ur Phencyclidine Scrn Ur Amphetamines Screen U Methamphetamin-MDMA U Benzodiazepines Scrn Urine Cocaine Screen U Cannabinoids Screen Ur Drug Screen Comment Ethyl Alcohol < 3.0 02/04/20 02/04/20 13:25 13:30 WBC RBC Hgb Hct MCV MCH MCHC RDW Std Deviation RDW Coeff of Gladis Plt Count MPV Immature Gran % (Auto) Neut % (Auto) Lymph % (Auto) Wagoner % (Auto) Eos % (Auto) Baso % (Auto) Absolute Neuts (auto) Absolute Lymphs (auto) Nucleated RBC % Sodium Potassium Chloride Carbon Dioxide Anion Gap BUN Creatinine Estim Creat Clear Calc Est GFR (MDRD) Af Amer Est GFR (MDRD) Non-Af BUN/Creatinine Ratio Glucose Calcium Serum , Qual NEGATIVE Urine Opiates Screen NEGATIVE Urine Methadone Screen NEGATIVE Ur Barbiturates Screen NEGATIVE Ur Phencyclidine Scrn NEGATIVE Ur Amphetamines Screen NEGATIVE U Methamphetamin-MDMA NEGATIVE U Benzodiazepines Scrn POSITIVE H Urine Cocaine Screen NEGATIVE U Cannabinoids Screen POSITIVE H Ur Drug Screen Comment Ethyl Alcohol - Medical Decision Making Patient initially agreed to take something for her anxiety and when offered shot or pills she requested a shot. She was ordered 2 mg of IM Ativan but when nurse took that to her she refused it saying that she normally takes Xanax and Ativan would not do anything for her. At that point patient was continuing to escalate. I had ordered 20 mg of Geodon. By the time it was able to be pulled patient had started to cooperate more, had changed gown, and had given us urine. Geodon was held. Patient was given her normal p.o. dose of Xanax. Social work was able to speak with the patient. She was also able to speak with the patient's 20-year-old daughter who had called the police. The 20-year-old daughter was contacted by grandmother who had seen the patient take a gun to the car, take a picture of it, and then take the gun back into the house. Because the 20-year-old daughter, boyfriend's 9-year-old daughter, and the patient rolled to go shopping together the 20-year-old daughter did not feel comfortable with her mom driving because of her behavior. Mom became upset with this and a 20 old daughter called police. 20-year-old daughter verifies that the gun is taken away and is secured. Her mother does not have any other access to weapons. They do feel that she will be safe at home. She has never attempted suicide in the past. Patient has agreed to a follow-up phone call tomorrow from social work and was advised if she does not answer this please will be sent to check on her. ED Disposition - Plan for ED Patient: Disposition: Home or Assisted Living Diagnosis: Anxiety Instructions: ED Stress React
[2020-02-04 13:39] LABS: Absolute Lymphocyte Count 2.68 X10^3/uL (0.83-4.51); Absolute Neutrophil Count 12.4 X10^3/uL (2.0-7.7); Basophil# 0.03 X10^3/uL; Basophil% 0.2 % (0-1); Eosinophil# 0.05 X10^3/uL; Eosinophils% 0.3 % (0-5); Hematocrit 42.2 % (37-47); Hemoglobin 14.3 g/dL (12.0-15.0); Lymphocyte # 2.68 X10^3/ul (4.0); Lymphocyte % 16.9 % (19-41); Mean Corp Hgb Conc 33.9 g/dL (32-36); Mean Corpuscular Hgb 30.5 pg (27.0-32.0); Mean Platelet Vol. 9.1 fl (6.2-12.0); Monocyte# 0.64 X10^3/uL; NRBC Flagged by Analyzer 0 % (0-5); Neutrophil # 12.43 X10^3/uL (2.7-7.7); Neutrophil % 78.2 % (47-70); Platelet Count 318 K/mm3 (150-450); RBC Distribution Width CV 12.4 % (11.6-14.6); RBC Distribution Width SD 40.4 fl (35.1-43.9); Red Blood Count 4.69 M/mm3 (4.2-5.4); White Blood Count 15.9 K/mm3 (4.4-11.0)
[2020-02-04 13:47] VITALS: BP 148/91; PULSE 123; RESP 20; TEMP 36.8; O2SAT 99
--- NOTE | 2020-02-04 13:49 | ED.RN ---
PT IN THE ROOM YELLING AND SCREAMING. PT INFORMED BY BRANDON ALONSO THAT IF SHE COOPERATED, SHE WOULD BE ABLE TO HAVE HER PHONE BACK. PT PROVIDED A URINE SAMPLE AND REMOVED ALL CLOTHES AND PUT A DOWN ON. PT WAS GIVEN HER PHONE BUT INFORMED IF SHE CONTINUED TO YELL AND SCREAM AT STAFF AND DID NOT COOPERATE, THE PHONE WOULD BE REMOVED AND SHE WOULD BE MEDICATED TO HELP HER CALM DOWN. PT AGREED TO THE SAME. THE PHONE WAS GIVEN TO THE PT BY DAYLIN
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
[2020-02-04 13:58] LABS: Internal QC Validated? YES +Cl - CLEAR BKGD; Pregnancy, Serum, hCG Quali. NEGATIVE Negative
[2020-02-04 13:59] LABS: Anion Gap 7 (5-15); BUN 8 mg/dL (7-18); BUN/Creat Ratio 8.8 RATIO (10-20); Calcium,Total 9.8 mg/dL (8.5-10.1); Chloride 109 mmol/L (98-107); Creatinine, Serum 0.91 mg/dL (0.55-1.02); EST Glomerular Filtration Rate 72 mL/min (>60); Est Glom Filt Rate - Afr Amer 87 mL/min (>60); Estimated Creatinine Clearance 72.47 ml/min; Glucose 99 mg/dL (74-106); Potassium 3.9 mmol/L (3.5-5.1); Sodium Level 140 mmol/L (136-145)
[2020-02-04 14:01] LABS: Alcohol, Blood (Medical)-Serum < 3.0 mg/dL
[2020-02-04 14:04] LABS: Amphetamine Urine VISTA NEGATIVE (<1000 ng/mL); Barbiturate Urine VISTA NEGATIVE (< 200 ng/mL); Benzodiazepine Urine VISTA POSITIVE (< 200 ng/mL); Cocaine Urine VISTA NEGATIVE (< 300 ng/mL); Ecstacy Urine VISTA NEGATIVE (< 500 ng/mL); Methadone Urine VISTA NEGATIVE (< 300 ng/mL); PCP Urine VISTA NEGATIVE (< 25 ng/mL); THC Urine VISTA POSITIVE (< 50 ng/mL); Vista UDS pH Range 5
[2020-02-04] MEDS: ALPRAZolam 0.5 MG Tablet 1 MG PO (14:36)
--- NOTE | 2020-02-05 11:05 | CM.ED ---
SOCIAL WORK SAFETY PLAN FOLLOW UP CALL CALL TO PATIENT TO FOLLOW UP FROM ED VISIT ON 02/04/2020. PATIENT REPORTS IS DOING FINE. PATIENT STATED YESTERDAY, EVERYTHING WAS BLOWN OUT OF PROPORTION. SUPPORT AND ACTIVE LISTENING PROVIDED. DISCUSSED HEALTHY COPING AND RESOURCES FOR COUNSELING. PATIENT DENIED ANY NEEDS. Kandy AGUILAR MSW, QUALITY ASSURANCE MONITOR CHASSIS.
== END 2020-02-04 15:01 | disposition home or self-care (01) ==
PROVIDERS: Emergency Provider Emergency Medicine
DX: F41.9 Anxiety disorder, unspecified (principal); F17.200 Nicotine dependence, unspecified, uncomplicated
CPT/HCPCS: 80048; 80307; 80320; 84703; 85025; 99284; G0480; J3486

== ENCOUNTER 2020-02-09 15:18 | Emergency (ER) | payer MEDICAID, SELFPAY ==
[2020-02-09 15:19] VITALS: BP 150/122; PULSE 127; RESP 18; TEMP 36.1; BMI 27.3
[2020-02-09 15:21] VITALS: BP 150/122; PULSE 127; RESP 18; TEMP 36.1
--- NOTE | 2020-02-09 15:46 | ED.RN ---
PT WALKING FUNNY BACK FROM [facility]. REPORTS HESITANCY AND BLADDER PAIN PAST 3 DAYS. REPORTS THAT HAS NERVE/SCIATICA SINCE HAD URETHRAL STENTING. THOUGHT WAS GETTING BACK PAIN FROM PERIOD DUE TO BE STARTING BUT TOOK MIDAL.
[2020-02-09 15:59] VITALS: BP 143/77; RESP 16; O2SAT 98
[2020-02-09 16:16] LABS: Mucous, Urine 0 SEEN /hpf (<or=2+)
[2020-02-09 16:17] LABS: Glucose, Dipstick 250 mg/dl (Normal); Ketone-Dipstick Negative (Negative); Leukocyte Esterase-Dipstick 100 /ul (Negative); Nitrite-Dipstick Positive (Negative); Occult Blood-Urine 150 /ul (Negative); Protein-Dipstick Negative (Negative); Specific Gravity, Urine 1.005 (1.002-1.030); Urine Bilirubin Dipstick Negative (Negative); Urine Urobilinogen Normal (Normal)
[2020-02-09 16:29] LABS: Color, Urine Yellow (Yellow); Urine Clarity Sl Cloudy (Clear)
[2020-02-09 16:30] LABS: Bacteria 2+ /hpf (None Seen); Red Blood Cells-Urine 0-5 SEEN /hpf (0-5); Squamous Epithelial Cells - UA 0-5 SEEN /hpf (5-10); White Blood Cells 10-25 SEEN /hpf (0-5)
--- NOTE | 2020-02-09 16:45 | ED.DCSUM_ITS ---
- ER Visit Summary Date of Service: 02/09/20 Chief Complaint: [Hematuria] History of Present Illness: The patient is a 44 F [presents to the emergency department with complaint of hematuria that started today. Patient states that she has been having some odd urinary symptoms for several days where she feels that she has a hard time starting her stream and only urinates a small amount. Today she had a episode where she thought she had to urinate and passed blood through her urine and some small clots. Patient complained of some sharp stabbing pains in the center of her bladder. She denies any fevers. She is had no nausea or vomiting. Patient says she became very anxious. She does have history of anxiety and migraines. Patient's had prior appendectomy as well as cholecystectomy. Patient's had prior tubal ligation and urethral mesh.] Physical Examination: [HEENT-PERRLA, EOMI. Cranial nerves II through XII grossly intact. TMs clear. Mucous membranes moist. No adenopathy. Cardiovascular-regular rate and rhythm without murmur or ectopy Lungs-clear to auscultation, chest wall stable without crepitus or subcu emphysema Abdomen-normoactive bowel sounds, soft. Patient has some mild tenderness over the suprapubic region. There is no rebound, rigidity, or peritoneal signs. Extremities-intact ?4, normal range of motion, normal pulses, atraumatic] Test Results: [Urinalysis obtained showed 100 leukocyte esterase as well as positive nitrites as well as 10-25 WBCs and +2 bacteria.] Emergency Department Course and Treatment: [Patient was started on Bactrim and given first dose in the emergency department] Treatment Plan: [We will treat patient with Bactrim and Pyridium. Patient had a urine culture sent and advised to follow-up with primary care physician in 3 to 5 days.] Disposition: [Discharged home in stable condition] Impression: [Urinary tract infection] This note was generated with [employer] dictation software. It may contain incorrect words, spelling, and punctuation that were not noted in review of the chart prior to signing ED Disposition - Plan for ED Patient: Referrals: Care Physician,No Primary [Primary Care Provider] -
--- NOTE | 2020-02-09 16:47 | ED.DEP ---
ED Disposition - Plan for ED Patient: Instructions: ED CYSTITIS Female Adult Prescriptions: Smz/Tmp Ds [Bactrim Ds] 1 tab PO BID #14 tab Prescription Printed Phenazopyridine HCl [Pyridium] 200 mg PO BID PRN PRN #10 tab PRN Reason: Pain Prescription Printed Referrals: Care Physician,No Primary [Primary Care Provider] - 3-5 Days
[2020-02-09] MEDS: Smz/Tmp Ds Tablet 1 TABLET PO (16:58)
[2020-02-09] MEDS: Phenazopyridine 95 MG Tablet 190 MG PO (16:58)
[2020-02-09 16:59] VITALS: BP 127/82; PULSE 83; RESP 20; O2SAT 95
== END 2020-02-09 17:01 | disposition home or self-care (01) ==
LOC: ED 16:04
PROVIDERS: Emergency Provider Emergency Medicine
DX: N39.0 Urinary tract infection, site not specified (principal); R31.9 Hematuria, unspecified; F41.9 Anxiety disorder, unspecified; G43.909 Migraine, unspecified, not intractable, without status migrainosus; Z79.899 Other long term (current) drug therapy; Z72.0 Tobacco use
CPT/HCPCS: 81001; 87086; 87088; 87186; 99283

== ENCOUNTER 2020-03-21 19:35 | Emergency (ER) | payer MEDICAID, SELFPAY ==
[2020-03-21 19:35] VITALS: BP 127/87; PULSE 108; RESP 16; TEMP 36.4; O2SAT 97; BMI 26.6
[2020-03-21 19:37] VITALS: BP 127/87; PULSE 108; RESP 16; TEMP 36.4; O2SAT 97
--- NOTE | 2020-03-21 21:15 | ED.VIS.DENTA ---
History of Present Illness Chief Complaint: Dental Informant: Patient Onset: Days Context: Sudden Onset Timing: Continuous Relieved by: NSAIDs Narrative: She is a 44-year-old female presenting with dental pain. In December she sustained a dental fracture and a temporary cap was placed on her upper right front tooth. On Sunday she tripped and ground her teeth and then her Fell out. She had significant pain especially associate with cold air touching the notable of the tooth. Her dentist can get her in until the eighth, 2 weeks from now. She is been taking Tylenol Naprosyn with no significant leaf of her pain. She denies any other complaints at this time. Past Medical History - Allergies and Home Meds Allergies/Adverse Reactions: Allergies docosahexanoic acid [From [facility]] Allergy (Verified 02/04/20 12:47) Hives iron amino acid chelate [From [facility]] Allergy (Verified 02/04/20 12:47) Hives methyltetrahydrofolate gluc.,folic [From [facility]] Allergy (Verified 02/04/20 12:47) Hives vitamins combination no.39 [From [facility]] Allergy (Verified 02/04/20 12:47) Hives hydrocodone Adverse Reaction (Verified 02/04/20 12:47) Other morphine Adverse Reaction (Verified 02/04/20 12:47) Vomiting topiramate [From Topamax] Adverse Reaction (Verified 02/04/20 12:47) Other B12, DEFFICIRNCY, DIARRHEA Primary Care Physician: Miguel Alegria MD [Primary Care Provider] - Past Medical History: - - Anxiety Surgical History: noncontributory Smoking Status: Current every day smoker Review of Systems General: Denies: Chills, Fever, Sweats Eyes: Denies: Visual changes - bilaterally, Diplopia ENT: Reports: - - Dental pain. Denies: Rhinorrhea, Sore throat Cardiovascular: Denies: Chest pain, Palpitations Respiratory: Denies: Dyspnea, Cough, Dyspnea on exertion Gastrointestinal: Denies: Abdominal pain, Nausea, Vomiting, Diarrhea, Melena, Hematochezia Genitourinary: Denies: Dysuria, Hematuria, Frequency Musculoskeletal: Denies: Back pain, Extremity Pain Skin: Denies: Rash, Wounds Neurological: Denies: Headache, Weakness, Numbness Physical Exam Vital Signs/Narrative: Vital Signs Temp Pulse Resp BP Pulse Ox 03/21/20 19:37 97.6 F L 108 H 16 127/87 H 97 03/21/20 19:35 97.6 F L 108 H 16 127/87 H 97 Inital Vital Signs reviewed: Yes General: Well nourished, Well developed Head: Normocephalic, Atraumatic ENT: Moist mucous membranes, No rhinorrhea, TM's clear Mouth/Throat: Normal inspection lips/gums, Normal oral mucosa, No focal abscess, Normal posterior oropharynx, No sublingual edema, - - Patient's right upper front tooth is only a nub consistent with dental Falling off. Very tender to palpation. Neck: Supple, No lymphadenopathy, Nontender, No JVD Cardiovascular: Regular rate, Regular rhythm, No murmurs Respiratory: No distress, CTA bilaterally, Chest nontender Skin: Normal color, No rash Neurological: Alert, Oriented x3, Cranial nerves II-XII grossly intact, Normal Strength, Normal Sensation Psychological: Normal affect, - - Anxious Diagnostic/Tx/Re-eval - Medical Decision Making Dental Procedures: Cavet temporary sealant placed Regional and Local Dental Anesthesia: Marcaine, - - Right inferior alveolar block Patient is evaluated for tooth pain associated with her Falling off and nerve root now being exposed. No signs of abscess or associated infection. Dental block is performed and patient receives adequate analgesia with this. Cavet is placed over the tooth. Patient request that I try to put her Back on however I counseled her that I do not feel comfortable doing this and I do not want to cause further damage to the tooth. Patient verbalizes understanding of this. When I stepped out of the room she then puts the cap back on herself. Patient is discharged to follow-up with her dentist. She is given a short course of Percocet for pain control as she is allergic to Holiday/hydrocodone. She has a follow-up appoint with her dentist on April 05. She is encouraged to call her dentist see if she can have her appointment moved up. Patient is counseled on signs and symptoms requiring return to the emergency room. Patient verbalizes agreement and understand this plan. Patient discharged home in stable and improved condition. ED Disposition - Plan for ED Patient: Disposition: Home or Assisted Living Diagnosis: Dental injury Instructions: Dental Trauma Prescriptions: Oxycodone HCl/Acetaminophen [Percocet 5/325] 1 tab PO Q6H PRN PRN 3 Days #12 tab PRN Reason: dental pain Prescription Printed Referrals: Miguel Alegria MD [Primary Care Provider] - Additional Instructions: Follow-up with your dentist as soon as possible. Call on Sunday to see if they get you in any sooner. Avoid cold beverages.
[2020-03-21] MEDS: Bupivacaine 0.5%/Epi 1.8 ML Syringe INFILT (21:51)
== END 2020-03-21 21:56 | disposition home or self-care (01) ==
PROVIDERS: Emergency Provider Emergency Medicine; PCP Internal Medicine
DX: S02.5XXA Fracture of tooth (traumatic), initial encounter for closed fracture (principal); W01.0XXA Fall on same level from slipping, tripping and stumbling without subsequent striking against object, initial encounter; Y93.9 Activity, unspecified; Y92.9 Unspecified place or not applicable; F41.9 Anxiety disorder, unspecified; Z79.899 Other long term (current) drug therapy; F17.200 Nicotine dependence, unspecified, uncomplicated
CPT/HCPCS: 64400; 64999; 99282

== ENCOUNTER 2020-10-08 08:05 | Emergency (ER) | payer MEDICAID, SELFPAY ==
[2020-07-19 14:44] VITALS: BMI 26.6
[2020-10-08 08:05] VITALS: BP 143/88; BP 145/86; PULSE 78; RESP 18; RESP 27; TEMP 36.4; O2SAT 94; O2SAT 98; BMI 25.8
--- NOTE | 2020-10-08 08:07 | CT_ITS ---
STUDY: CT ABDOMEN AND PELVIS WITHOUT CONTRAST REASON FOR EXAM: Female, 45 years old. Bilateral flank pain radiating into front since this morning, hx stones. Prior tubal ligation, appendectomy, cholecystectomy, uterine ablation. RADIATION DOSAGE (If Supplied By Facility): CTDIvol = ( 6.48 ) mGy, DLP = ( 317.28 ) mGycm TECHNIQUE: Transaxial images were obtained from the dome of the diaphragm to the symphysis pubis without oral contrast, and without intravenous contrast. Sagittal and coronal images were reconstructed. Individualized dose optimization techniques were used for this CT. COMPARISON: Comparison is made with prior study dated 11/28/2015. FINDINGS: The visualized lung bases are unremarkable. The visualized portions of the heart are within normal limits. Normal liver. There are surgical clips in the gallbladder fossa consistent with a prior cholecystectomy. Normal spleen. Normal pancreas. Normal bilateral adrenal glands. Normal right kidney. 2 mm calculus in the upper pole calyx of the left kidney. Mild degree of left hydronephrosis. I suspect a 3 mm calculus in the distal portion of the left ureter. Normal visualized stomach. Normal small intestine. Normal colon. The patient is status post appendectomy. Normal abdominal aorta. Normal inferior vena cava. Normal retroperitoneum. Normal urinary bladder. 1.4 cm follicle in the left ovary. Normal abdominal wall. Normal osseous structures. CT/Abdomen/Pelvis without Cont IMPRESSION: Stable left ureteral calculus. Mild left hydronephrosis. I suspect a 3 mm calculus in the distal portion of the left ureter. Electronically Signed: Conor David, at 8:59 EST , Service support ,
[2020-10-08] MEDS: Ondansetron 4 MG/2 ML Vial IV (08:18)
[2020-10-08] MEDS: Ketorolac 15 MG/ML Vial IV (08:18)
[2020-10-08] MEDS: HYDROmorphone 1 MG/ML Syringe IV (08:19)
[2020-10-08] MEDS: 0.9% Normal Saline 1,000 ML 250 ML IV (08:20)
[2020-10-08 08:36] LABS: Absolute Lymphocyte Count 2.25 X10^3/uL (0.83-4.51); Absolute Neutrophil Count 9.7 X10^3/uL (2.0-7.7); Basophil# 0.03 X10^3/uL; Basophil% 0.2 % (0-1); Eosinophil# 0.11 X10^3/uL; Eosinophils% 0.9 % (0-5); Hematocrit 41.1 % (37-47); Hemoglobin 13.8 g/dL (12.0-15.0); Lymphocyte # 2.25 X10^3/ul (4.0); Lymphocyte % 17.8 % (19-41); Mean Corp Hgb Conc 33.6 g/dL (32-36); Mean Corpuscular Hgb 30.6 pg (27.0-32.0); Mean Corpuscular Volume 91.1 fL (81-99); Mean Platelet Vol. 9.9 fl (6.2-12.0); Monocyte# 0.54 X10^3/uL; Monocyte% 4.3 % (0-10); NRBC Flagged by Analyzer 0 % (0-5); Neutrophil % 76.5 % (47-70); Platelet Count 336 K/mm3 (150-450); RBC Distribution Width SD 40.1 fl (35.1-43.9); Red Blood Count 4.51 M/mm3 (4.2-5.4); White Blood Count 12.7 K/mm3 (4.4-11.0)
--- NOTE | 2020-10-08 08:41 | ED.DCSUM_ITS ---
History of Present Illness Chief Complaint: Abd Pain Onset: Today Context: Sudden Onset Timing: Continuous Current Severity: Moderate Maximum Severity: Severe Narrative: The patient is a 45-year-old female medical history significant for prior kidney stone that presents to the emergency department with rather acute onset left- sided flank pain. The patient states the symptoms started at 4:00 this morning. It woke her from sleep. She has been nauseated with 2 bouts of emesis. She states the pain is mostly in her left flank. It has not migrated. She denies fever but does think she is had some chills. She denies dysuria or hematuria. She states that she has had stones before and she is past the mall. She is never required lithotripsy or stenting. Prior similar symptoms: Yes Recent Illness/Hospitalization: No Past Medical History - Allergies and Home Meds Allergies/Adverse Reactions: Allergies docosahexanoic acid [From [facility]] Allergy (Verified 02/04/20 12:47) Hives gabapentin Allergy (Verified 07/19/20 14:46) Other Narcolepsy iron amino acid chelate [From [facility]] Allergy (Verified 02/04/20 12:47) Hives methyltetrahydrofolate gluc.,folic [From [facility]] Allergy (Verified 02/04/20 12:47) Hives vitamins combination no.39 [From [facility]] Allergy (Verified 02/04/20 12:47) Hives hydrocodone Adverse Reaction (Verified 02/04/20 12:47) Other morphine Adverse Reaction (Verified 02/04/20 12:47) Vomiting topiramate [From Topamax] Adverse Reaction (Verified 02/04/20 12:47) Other B12, DEFFICIRNCY, DIARRHEA Primary Care Physician: Clara Mojica MD [STAFF PHYSICIAN] - Prior records reviewed: Yes Past Medical History: - - Prior kidney stone, depression, anxiety, migraines Surgical History: noncontributory Smoking Status: Current every day smoker Review of Systems General: Denies: Chills, Fever, Sweats Eyes: Denies: Visual changes - bilaterally, Diplopia ENT: Denies: Rhinorrhea, Sore throat Cardiovascular: Denies: Chest pain, Palpitations Respiratory: Denies: Dyspnea, Cough, Dyspnea on exertion Gastrointestinal: Reports: Nausea, Vomiting. Denies: Abdominal pain, Diarrhea, Melena, Hematochezia Genitourinary: Denies: Dysuria, Hematuria, Frequency Musculoskeletal: Reports: Back pain. Denies: Extremity Pain Skin: Denies: Rash, Wounds Neurological: Denies: Headache, Weakness, Numbness Physical Exam Vital Signs/Narrative: Vital Signs Temp Resp BP Pulse Ox 10/08/20 08:05 97.6 F L 27 H 143/88 H 94 Inital Vital Signs reviewed: Yes General: Well nourished, Well developed, No Acute Distress Head: Normocephalic, Atraumatic Eyes: Perrl, EOMI ENT: Moist mucous membranes, No rhinorrhea Neck: Supple, Nontender Cardiovascular: Regular rate, Regular rhythm, No murmurs Respiratory: No distress, CTA bilaterally, Chest nontender Abdomen: Soft, Nontender, Nondistended, Normal bowel sounds Back: Nontender, Normal Inspection Extremities: Nontender, No edema Skin: Normal color, No rash Neurological: Alert, Oriented x3, Cranial nerves II-XII grossly intact, Normal Strength, Normal Sensation Psychological: Normal affect, Normal Mood Diagnostic/Tx/Re-eval Clinical Impression(s) from Imaging Studies Abdomen/Pelvis CT 10/08/20 08:07 IMPRESSION: Stable left ureteral calculus. Mild left hydronephrosis. I suspect a 3 mm calculus in the distal portion of the left ureter. Electronically Signed: Conor David, at 8:59 EST , Service support , Abnormal Lab Results 10/08/20 10/08/20 08:25 08:25 WBC 12.7 H RBC 4.51 Hgb 13.8 Hct 41.1 MCV 91.1 MCH 30.6 MCHC 33.6 RDW Std Deviation 40.1 RDW Coeff of Gladis 12.0 Plt Count 336 MPV 9.9 Immature Gran % (Auto) 0.300 Neut % (Auto) 76.5 H Lymph % (Auto) 17.8 L [place] % (Auto) 4.3 Eos % (Auto) 0.9 Baso % (Auto) 0.2 Absolute Neuts (auto) 9.7 H Absolute Lymphs (auto) 2.25 Nucleated RBC % 0 Sodium 139 Potassium 3.7 Chloride 108 H Carbon Dioxide 25.0 Anion Gap 6 BUN 12 Creatinine 0.94 Estim Creat Clear Calc 69.44 Est GFR (MDRD) Af Amer 83 Est GFR (MDRD) Non-Af 69 BUN/Creatinine Ratio 12.8 Glucose 117 H Calcium 9.3 - Medical Decision Making The patient presents with rather acute onset left-sided flank pain that woke her from sleep this morning. She states she cannot get comfortable. She does have a history of kidney stone and states this feels similar. IV was established. Patient was given analgesics and antiemetics. Screening labs were obtained were relatively unremarkable. With pain medication, she is feeling markedly improved. Patient underwent CT. She does have evidence of a small 3 mm stone distally. There is no significant hydro-. Urine was obtained. There is few bacteria, but no significant whites. There is mostly blood. We will treat the patient with Keflex given obstructing stone. She has not had a fever. At this point, her pain is controlled. I do feel that she is safe for outpatient therapy. Patient was counseled on concerning symptoms and reasons to return. S he will be discharged home. Impression 1. 3 mm left urolithiasis with colic ED Disposition - Plan for ED Patient: Instructions: ED Kidney Stone w/ Colic Prescriptions: Cephalexin [Keflex] 500 mg PO Q6 #40 cap Prescription Printed Oxycodone HCl/Acetaminophen [Percocet 5/325] 1 tab PO Q6H PRN PRN 3 Days #12 tab PRN Reason: Pain Prescription Printed Ondansetron [Zofran Odt] 4 mg PO Q8H PRN PRN #10 tab PRN Reason: Nausea Prescription Printed Referrals: Clara Mojica MD [STAFF PHYSICIAN] -
[2020-10-08 08:42] LABS: Anion Gap 6 (5-15); BUN 12 mg/dL (7-18); BUN/Creat Ratio 12.8 RATIO (10-20); Calcium,Total 9.3 mg/dL (8.5-10.1); Chloride 108 mmol/L (98-107); Creatinine, Serum 0.94 mg/dL (0.55-1.02); EST Glomerular Filtration Rate 69 mL/min (>60); Est Glom Filt Rate - Afr Amer 83 mL/min (>60); Estimated Creatinine Clearance 69.44 ml/min; Glucose 117 mg/dL (74-106); Potassium 3.7 mmol/L (3.5-5.1); Sodium Level 139 mmol/L (136-145)
[2020-10-08 09:21] LABS: Mucous, Urine 0 SEEN /hpf (<or=2+)
[2020-10-08 09:23] LABS: Color, Urine Yellow (Yellow); Glucose, Dipstick Normal (Normal); Ketone-Dipstick 5 mg/dl (Negative); Leukocyte Esterase-Dipstick 25 /ul (Negative); Nitrite-Dipstick Negative (Negative); Occult Blood-Urine 250 /ul (Negative); Protein-Dipstick 30 mg/dl (Negative); Urine Bilirubin Dipstick Negative (Negative); Urine Clarity Sl. Cloudy (Clear); Urine Urobilinogen Normal (Normal)
[2020-10-08 09:31] LABS: Red Blood Cells-Urine 25-50 SEEN /hpf (0-5); White Blood Cells 0-5 SEEN /hpf (0-5)
[2020-10-08 09:32] LABS: Bacteria 2+ /hpf (None Seen); Squamous Epithelial Cells - UA 0-5 SEEN /hpf (5-10)
[2020-10-08] MEDS: HYDROmorphone 0.5 MG/0.5 ML SYRINGE IV (09:42)
[2020-10-08 10:24] VITALS: BP 137/75
== END 2020-10-08 10:30 | disposition home or self-care (01) ==
LOC: ED 09:33
PROVIDERS: Emergency Provider Emergency Medicine; PCP Family Medicine
DX: N13.2 Hydronephrosis with renal and ureteral calculous obstruction (principal); F41.9 Anxiety disorder, unspecified; F32.9 Major depressive disorder, single episode, unspecified; Z87.442 Personal history of urinary calculi; Z90.49 Acquired absence of other specified parts of digestive tract; Z79.899 Other long term (current) drug therapy; F17.200 Nicotine dependence, unspecified, uncomplicated
CPT/HCPCS: 74176; 80048; 81001; 85025; 96361; 96374; 96375; 96376; 99284; J7030; A4216; J2405

== ENCOUNTER 2020-10-19 08:41 | Day surgery (SDC) | payer MEDICAID, SELFPAY ==
[2020-10-19] VITALS (11 sets, daily range): BP systolic 117–139; BP diastolic 61–91; PULSE 77–94; RESP 16–18; TEMP 36.6–37.6; O2SAT 96–100
--- NOTE | 2020-10-19 09:34 | PCM.HP.STD ---
Problem List (1) Left ureteral calculus Status: Acute History of Present Illness Date of Admission: 10/19/20 Chief Complaint: left abdominal pain, left ureteral stone The patient is a 45 year old F who was diagnosed with a left ureteral calculus after having significant left-sided flank and abdominal discomfort. She is continued to have pain requiring narcotics and Zofran at home. Informed consent was obtained and she agreed to proceed with surgical intervention for her stone. Past Medical History Past Medical History (Chronic Problems): Chronic Problems (Last Reviewed 10/14/18 @ 11:40 by Kathe Casillas) Anxiety (Chronic) Intermittent explosive disorder (Chronic) Insomnia (Chronic) MERNA (stress urinary incontinence, female) (Chronic) Medical History: Medical History (Last Reviewed 10/19/20 @ 09:[address] Clara Mojica MD) Anemia D64.9 Arthritis M19.90 History of uterine ablasion Knee pain M25.569 Limb weakness R29.898 Shoulder pain M25.519 Chronic neck and back pain M54.2, M54.9, G89.29 Allergies docosahexanoic acid [From [facility]] Allergy (Verified 10/19/20 09:26) Hives gabapentin Allergy (Verified 10/19/20 09:26) Other Narcolepsy iron amino acid chelate [From [facility]] Allergy (Verified 10/19/20 09:26) Hives methyltetrahydrofolate gluc.,folic [From [facility]] Allergy (Verified 10/19/20 09:26) Hives vitamins combination no.39 [From [facility]] Allergy (Verified 10/19/20 09:26) Hives hydrocodone Adverse Reaction (Verified 10/19/20 09:26) Other morphine Adverse Reaction (Verified 10/19/20 09:26) Vomiting topiramate [From Topamax] Adverse Reaction (Verified 10/19/20 09:26) Other B12, DEFFICIRNCY, DIARRHEA Home Medications: Ambulatory Orders Medication Instructions Recorded Zolpidem Tartrate [Ambien] 10 mg PO QHS PRN 02/25/16 ALPRAZolam [Xanax] 1 mg PO DAILY 08/20/16 ALPRAZolam [Xanax] 1.5 mg PO QHS 09/07/18 meloxicam 15 mg tablet 15 mg PO DAILY #30 tab 07/19/20 Cephalexin [Keflex] 500 mg PO Q6 #40 cap 10/08/20 Ondansetron [Zofran Odt] 4 mg PO Q8H PRN PRN #10 tab 10/08/20 Surgical History: Surgical History (Last Reviewed 10/19/20 @ 09:[address] Clara Mojica MD) History of appendectomy Z90.49 History of bilateral tubal ligation Z98.51 History of cholecystectomy Z90.49 History of tonsillectomy Z90.89 Surgical History: noncontributory Smoking Status: Current some day smoker Tobacco Use: Cigarettes Review of Systems Constitutional: Denies: Anorexia, Chills, Fever Eyes: Denies: Redness HEENT: Denies: Visual Changes Cardiovascular: Denies: Chest Pain, Chest Pressure Respiratory: Denies: Cough, Shortness of Breath Gastrointestinal: Reports: Abdominal Pain, Nausea. Denies: Diarrhea Genitourinary: Reports: Hematuria, Hesitancy, Urgency. Denies: Dysuria, Retention Musculoskeletal: Denies: Muscle pain Skin: Denies: Skin Changes Neurological: Denies: Difficulty swallowing Endocrine: Denies: Change in Body Habitus VTE Information - Inpt Only VTE Present on Admission: Yes VTE Mechan Device Prophylaxis: SCD's VTE Pharm Prophylaxis ordered?: No Reason prophylaxis not ordered:: Treatment Not Indicated - Physical Exam Vitals/I&O's: Body Mass Index (BMI) 25.8 General: Alert, Oriented x3, Cooperative HEENT: Atraumatic, Normocephalic Oral: Moist Mucosa Neck: Supple, Trachea Midline Lungs: Normal air movement Cardiovascular: Regular rate Abdomen: Soft, Non Tender, Non-Distended Extremities: No clubbing, No Calf Tenderness Skin: No rashes Musculoskeletal: No Muscle Wasting Neurological: Cranial nerves II-XII grossly intact, Neuro grossly intact Psych/Mental Status: Appropriate, Alert and oriented to time, place, person, mood and affect Microbiology Past 72 Hours 10/18/20 16:09 Interface Orders SARS-CoV-2 Antigen (Rapid) - Final Current Medications Sodium Chloride (0.9% Nacl Peripheral Flush Adult/Peds) 5 - 15 ml IV UD PRN PRN Reason: SALINE FLUSH Assessment/Plan All Active Problems (Last Reviewed 10/14/18 @ 11:40 by Kathe Casillas) Left ureteral calculus (Acute) Medial epicondylitis of right elbow (Acute) Diarrhea (Acute) Cystoscopy, left ureteroscopy, holmium laser lithotripsy, left ureteral stent insertion Procedure Criteria Procedure Type: Elective - Uncontrolled pain COVID Risk Discussion: The surgeon/proceduralist and patient have discussed in detail the risk of exposure to and/or potential harm posed by the COVID-19 virus with having a surgery/procedure at this time versus the risk of delaying the surgery/procedure. It is not possible to know either the risk of delaying the surgery or procedure or chance of getting an infection with perfect accuracy, but a joint decision was made between the patient and the surgeon/proceduralist to proceed at this time with the scheduled surgery/procedure as indicated on the consent form.
--- NOTE | 2020-10-19 09:38 | OP.PCM_ITS ---
Problem List (1) Left ureteral calculus Status: Acute Report of Operation Date of Procedure: 10/19/20 Pre-Operative Diagnosis: Left ureteral calculus Post-Operative Diagnosis: Same Surgery/Procedure Performed:: Cystoscopy, left ureteroscopy, holmium laser lithotripsy, stone stone basket extraction, left ureteral stent insertion Type of Anesthesia:: General Description of Procedure: Patient is a 45-year-old female presented to the office with pain secondary to a ureteral calculus on the left side. She failed a trial of passage and now presents for definitive intervention. Informed consent was obtained including a discussion of COVID-19 risks. The patient was taken to the operating room and placed on the operating room table. Anesthesia monitored the head, neck, airway, IV access and vital signs throughout the case. Once anesthesia was appropriate ministered the patient was placed into dorsal lithotomy position was prepped and draped in usual sterile fashion. The cystoscope was then inserted through the urethra under direct visualization into the urinary bladder. The bladder mucosa in its entirety was visualized and found to be without mass, lesion, ulceration and foreign body. The left ureteral orifice was located on the area of the trigone in correct anatomic position. It was gently cannulated with a 0.035 Glidewire which met resistance in the distal third of the ureter but then passed into the renal pelvis as visualized on fluoroscopy. Using the semirigid ureteroscope, the distal ureter was intubated and the stone was identified. It was lasered into small pieces using the holmium laser with a 270 ?m fiber. Once the pieces were small enough, a stone basket was used to retrieve the pieces. Ureteroscopy was performed proximal to the area of the stone. There were no injuries to the ureter. The safety wire was then used to pass a 6 [place] 24 cm stent with a curl in the renal pelvis in the urinary bladder. Patient's bladder was then emptied and the case was terminated. She was taken to the recovery room in good condition. There were no complications during the procedure. Grafts/Implants Used: 6 x 24 JJ stent - Complications None - Admit VTE Documentation VTE Present on Admission: Yes VTE Mechan Device Prophylaxis: SCD's VTE Pharm Prophylaxis ordered?: No Reason prophylaxis not ordered:: Treatment Not Indicated
[2020-10-19] MEDS: Lactated Ringers 1,000 ML 100 ML IV ×2 (09:46→12:45)
--- NOTE | 2020-10-19 10:00 | DCINST_ITS ---
Discharge Diet: No Restrictions Discharge Activity: May not drive while taking narcotic pain medications., May Shower May resume sexual activity in: No Restrictions Call your doctor if you observe: Fever of 101 or Higher, Inability to urinate, Inability to have a bowel movement, Calf discomfort, Uncontrolled pain Allergies/Adverse Reactions: Allergies docosahexanoic acid [From [facility]] Allergy (Verified 10/19/20 09:26) Hives gabapentin Allergy (Verified 10/19/20 09:26) Other Narcolepsy iron amino acid chelate [From [facility]] Allergy (Verified 10/19/20 09:) Hives methyltetrahydrofolate gluc.,folic [From [facility]] Allergy (Verified 10/19/20 09:) Hives vitamins combination no.39 [From [facility]] Allergy (Verified 10/19/20 09:) Hives hydrocodone Adverse Reaction (Verified 10/19/20 09:) Other morphine Adverse Reaction (Verified 10/19/20 09:) Vomiting topiramate [From Topamax] Adverse Reaction (Verified 10/19/20 09:26) Other B12, DEFFICIRNCY, DIARRHEA Medications to take at Discharge Zolpidem Tartrate [Ambien] 10 mg PO QHS PRN 02/25/16 ALPRAZolam [Xanax] 1 mg PO DAILY 08/20/16 ALPRAZolam [Xanax] 1.5 mg PO QHS 07/05/18 meloxicam 15 mg tablet 15 mg PO DAILY #30 tab 07/19/20 Cephalexin [Keflex] 500 mg PO Q6 #40 cap 10/08/20 Ondansetron [Zofran Odt] 4 mg PO Q8H PRN PRN #10 tab 10/08/20 Cephalexin [Keflex] 500 mg PO Q12 3 Days #6 cap 10/19/20 Oxycodone HCl/Acetaminophen [Percocet 5/325] 1 tablet PO Q8H PRN PRN 7 Days #6 tablet 10/19/20 Phenazopyridine [Pyridium] 100 mg PO TID #30 tab 10/19/20 The following prescriptions were given: Cephalexin [Keflex] 500 mg PO Q12 3 Days #6 cap Transmission Status: Pending to [facility] Oxycodone HCl/Acetaminophen [Percocet 5/325] 1 tablet PO Q8H PRN PRN 7 Days #6 tablet PRN Reason: Pain Transmission Status: Received by [facility] Phenazopyridine [Pyridium] 100 mg PO TID #30 tab Transmission Status: Pending to [facility] [facility] Primary Care Physician: Celine Villalobos MD [Primary Care Provider] - Test Results: Test results from this visit will be discussed in further detail at your follow- up appointment, if applicable. Please Follow Up With: Clara Mojica MD When: call office for appt Proposed Discharge Date: 10/19/20
[2020-10-19] MEDS: oxyCODONE 5 MG Tablet PO (13:30)
[2020-10-19] MEDS: Acetaminophen 325 MG Tablet PO (13:30)
== END 2020-10-19 13:47 | disposition home or self-care (01) ==
LOC: SDC 08:50 → AC 08:51
PROVIDERS: PCP Family Medicine; Referring Provider Urology; Visit Provider Urology
PROC: 0TJ98ZZ Inspection of Ureter, Via Natural or Artificial Opening Endoscopic (ICD-10-PCS; CPT 52352; principal; 2020-10-19 10:00)
DX: N20.1 Calculus of ureter (principal); Z20.828 Contact with and (suspected) exposure to other viral communicable diseases; F41.9 Anxiety disorder, unspecified; N39.3 Stress incontinence (female) (male); M19.90 Unspecified osteoarthritis, unspecified site; G43.909 Migraine, unspecified, not intractable, without status migrainosus; Z86.2 Personal history of diseases of the blood and blood-forming organs and certain disorders involving the immune mechanism; Z87.442 Personal history of urinary calculi; Z79.899 Other long term (current) drug therapy; F17.210 Nicotine dependence, cigarettes, uncomplicated
CPT/HCPCS: 00918; 52356; 76000; 82360; 87426; C9803; J7120; C1769; C2617; J2405

== ENCOUNTER → 2020-10-27 15:58 | Outpatient (CLI) | payer MEDICAID, SELFPAY ==
--- NOTE | 2020-10-27 16:10 | CT_ITS ---
STUDY: CT ABDOMEN AND PELVIS WITHOUT CONTRAST REASON FOR EXAM: Female, 45 years old. LEFT FLANK PAIN, REMOVED KS ON LEFT 10/19/20, STENT REMOVED YESTERDAY RADIATION DOSAGE (If Supplied By Facility): CTDIvol = ( 6.50 ) mGy, DLP = ( 324.97 ) mGycm TECHNIQUE: Transaxial images were obtained from the dome of the diaphragm to the symphysis pubis without oral contrast, and without intravenous contrast. Sagittal and coronal images were reconstructed. Individualized dose optimization techniques were used for this CT. COMPARISON: 10/08/2020 FINDINGS: The visualized lung bases are unremarkable. The visualized portions of the heart are within normal limits. Normal liver. Gallbladder has been removed surgically.. Normal spleen. Normal pancreas. Normal bilateral adrenal glands. No evidence for renal obstruction or ureteral calculus.. Status post left ureteral vesicle stent removal Previously noted left renal calculus not visualized and may be consistent with recent passage of stone Normal visualized stomach. Nonspecific ileus with diffuse fecal retention in the colon.. Postop change status post appendectomy. Normal abdominal aorta. Normal inferior vena cava. Normal retroperitoneum. Incompletely distended thick-walled bladder likely of no significance. Tiny air bubble within the bladder likely iatrogenic. Left ovarian cyst is noted measuring approximately 2.35 x 2 cm Normal abdominal wall. Normal osseous structures. CT/Abdomen/Pelvis without Cont IMPRESSION: No evidence for renal obstruction at this time status post ureterovesical stent removal. Previously noted left renal calculus on October 08 is not visualized at this time and presumably has been passed. Left ovarian cyst measuring approximately 2.35 x 2 cm Electronically Signed: Tony Dong MD at 16:46 EST , Service support ,
== END ==
PROVIDERS: PCP Family Medicine; Visit Provider Urology
DX: R10.9 Unspecified abdominal pain (principal); N20.1 Calculus of ureter
CPT/HCPCS: 74176

== ENCOUNTER → 2020-11-10 08:30 | Outpatient (CLI) | payer MEDICAID, SELFPAY ==
--- NOTE | 2020-11-10 08:33 | US_ITS ---
STUDY: ULTRASOUND OF THE FEMALE PELVIS - COMPLETE REASON FOR EXAM: Female, 45 years old. LEFT OVARIAN CYST SEEN ON CT LMP: 10/04/2020. TECHNIQUE: Transvaginal TECHNICAL QUALITY: Adequate. COMPARISON: Comparison is made with prior CT scan and pelvis dated 10/27/2020. FINDINGS: The uterus is anteverted and is in a midline position. The uterus measures 9.4 cm x 5.2 cm x 4.5 cm. There is a Nabothian cyst of the cervix. The endometrium measures 10.6 mm in thickness, and is hyperechoic. There is no demonstrated endometrial mass. There is no demonstrated myometrial mass. The myometrium is of heterogeneous echotexture. This is suggestive of fibroid change. No focal fibroid is seen. I.U.D. - The patient does not have an I.U.D. The right ovary is visualized. The right ovary measures 1.8 cm x 2.1 cm x 0.9 cm. There is no right ovarian cyst or ovarian mass. There is no visualized right adnexal mass or complex lesion. There is normal arterial and normal venous vascularity. The left ovary is visualized. The left ovary measures 2.3 cm x 2.2 cm x 1.6 cm. There is no left ovarian cyst or ovarian mass. There is no visualized left adnexal mass or complex lesion. There is normal arterial and normal venous vascularity. There is no fluid in the cul-de-sac. The pre void volume of the bladder was 69.4 ml. Polycystic ovary disease: No. US/Transvaginal Non- IMPRESSION: Heterogeneous echotexture of the uterus. No left ovarian cyst is seen at this time. Electronically Signed: Conor David, at 14:56 EST , Service support ,
== END ==
PROVIDERS: PCP Family Medicine; Referring Provider Family Medicine; Visit Provider Family Medicine
DX: N83.202 Unspecified ovarian cyst, left side (principal)
CPT/HCPCS: 76830

== ENCOUNTER 2020-12-19 15:55 | Emergency (ER) | payer MEDICAID, SELFPAY ==
[2020-12-19 15:56] VITALS: BP 136/81; PULSE 90; RESP 18; TEMP 36.6; O2SAT 98; BMI 25.0
--- NOTE | 2020-12-19 16:22 | CT_ITS ---
EXAM: CT ABDOMEN AND PELVIS WITHOUT INTRAVENOUS CONTRAST CLINICAL INDICATION: LT FLANK PAIN TECHNIQUE: Helically acquired images were obtained of the abdomen and pelvis without intravenous contrast. This CT exam was performed using one or more of the following dose reduction techniques: automated exposure control, adjustment of the mA and/or kV according to patient size, and/or use of iterative reconstruction technique. This report was created using [employer] report generation technology. COMPARISON: 10/27/2020 FINDINGS: LOWER THORAX: Unremarkable. Lung bases are clear. No cardiomegaly. No significant pericardial effusion. ABDOMEN: LIVER: Unremarkable. Homogeneous. GALLBLADDER AND BILE DUCTS: Gallbladder surgically absent. No intra- or extrahepatic biliary ductal dilation. PANCREAS: Unremarkable. No focal cystic mass. SPLEEN: Unremarkable. Normal size without focal cystic or solid mass. ADRENALS: Unremarkable. No nodules. KIDNEYS AND URETERS: Unremarkable. Normal renal size and position. No hydronephrosis. STOMACH AND BOWEL: Unremarkable. No stomach or bowel distention. No focal inflammatory change. PELVIS: APPENDIX: No evidence of acute appendicitis. BLADDER: Unremarkable. REPRODUCTIVE: Left ovarian cyst/follicle is decreased in size as prior study. ABDOMEN and PELVIS: INTRAPERITONEAL SPACE: Unremarkable. No ascites or other fluid collection. No free air. BONES/JOINTS: Unremarkable. No suspicious lytic or blastic abnormality. SOFT TISSUES: Unremarkable. No discrete abdominal or pelvic wall hernia. VASCULATURE: There are vascular phleboliths of the pelvis, similar since the prior study. Abdominal aorta is non-dilated. LYMPH NODES: Unremarkable. No enlarged lymph nodes. CT/Abdomen/Pelvis without Cont IMPRESSION: No hydronephrosis or urinary tract calcifications. Electronically Signed: Kaushik King MD ([place]) at 17:12 EST , Service support ,
[2020-12-19] MEDS: Ketorolac 30 MG/ML Syringe IV (16:48)
[2020-12-19] MEDS: 0.9% Normal Saline 1,000 ML 250 ML IV (16:48)
[2020-12-19 17:00] LABS: Absolute Lymphocyte Count 2.57 X10^3/uL (0.83-4.51); Absolute Neutrophil Count 10.2 X10^3/uL (2.0-7.7); Anion Gap 7 (5-15); BUN 9 mg/dL (7-18); BUN/Creat Ratio 11.2 RATIO (10-20); Basophil# 0.03 X10^3/uL; Basophil% 0.2 % (0-1); Calcium,Total 9.3 mg/dL (8.5-10.1); Chloride 106 mmol/L (98-107); Creatinine, Serum 0.81 mg/dL (0.55-1.02); EST Glomerular Filtration Rate 82 mL/min (>60); Eosinophil# 0.07 X10^3/uL; Eosinophils% 0.5 % (0-5); Est Glom Filt Rate - Afr Amer 100 mL/min (>60); Estimated Creatinine Clearance 80.58 ml/min; Glucose 115 mg/dL (74-106); Hematocrit 42.8 % (37-47); Hemoglobin 14.5 g/dL (12.0-15.0); Lymphocyte # 2.57 X10^3/ul (4.0); Lymphocyte % 18.9 % (19-41); Mean Corp Hgb Conc 33.9 g/dL (32-36); Mean Corpuscular Hgb 30.7 pg (27.0-32.0); Mean Corpuscular Volume 90.7 fL (81-99); Mean Platelet Vol. 9.3 fl (6.2-12.0); Monocyte# 0.66 X10^3/uL; Monocyte% 4.9 % (0-10); NRBC Flagged by Analyzer 0 % (0-5); Neutrophil # 10.18 X10^3/uL (2.7-7.7); Platelet Count 311 K/mm3 (150-450); Potassium 3.6 mmol/L (3.5-5.1); RBC Distribution Width CV 11.8 % (11.6-14.6); RBC Distribution Width SD 39.2 fl (35.1-43.9); Red Blood Count 4.72 M/mm3 (4.2-5.4); Sodium Level 142 mmol/L (136-145); White Blood Count 13.6 K/mm3 (4.4-11.0)
--- NOTE | 2020-12-19 17:06 | ED.DCSUM_ITS ---
- ER Visit Summary Date of Service: 12/19/20 Chief Complaint: Left flank pain History of Present Illness: The patient is a 45 F who presents with left flank pain that has been constant for the past 3 weeks. Patient describes the pain as stabbing. Patient states nothing makes it better and nothing makes it worse. Patient states she had does have a history of kidney stones. Patient admits to some chronic dysuria but denies any hematuria. Patient denies any nausea or vomiting. Patient denies any fevers but admits to subjective chills. Patient denies any chest pain or shortness of breath. Physical Examination: Vital signs are stable. Patient is afebrile. Patient is in no acute distress. Oral mucosa is pink and moist. Neck is supple. Trachea is midline. There is no JVD. Heart was regular rate and rhythm. Lungs are clear and equal bilaterally. Abdomen is soft. Bowel sounds are normal. There is left upper quadrant tenderness. There is no rebound or guarding noted. Cranial nerves II through XII are intact. There are no focal motor or sensory deficits noted. Remedies are intact. There is no calf tenderness or edema. Test Results: CBC shows a mild leukocytosis of 13.6. Basic metabolic profile is within normal limits. Urinalysis shows occult blood of 150 with 10-25 red blood cells and 10-[address] scan of the abdomen pelvis was obtained. There is no hydronephrosis noted. There are no ureteral calcifications noted. This was interpreted by the radiologist and reviewed by myself. Emergency Department Course and Treatment: Patient was given a dose of Toradol. Patient was given IV fluids. Patient had minimal improvement with this. Patient was given a dose of Zofran and morphine. Patient was feeling better on reevaluation. Patient was instructed to follow-up with her primary care physician and urologist in 5 to 7 days. Patient was given a prescription for Percocet. Patient was instructed to return if worse in any way. Patient understood and was agreeable with the plan. All questions were answered. Disposition: Discharge home Impression: Left flank pain This note was generated with [employer] dictation software. It may contain incorrect words, spelling, and punctuation that were not noted in review of the chart prior to signing ED Disposition - Plan for ED Patient: Disposition: Home or Assisted Living Diagnosis: Left flank pain Instructions: ED Flank Pain, Uncertain Cause Prescriptions: Oxycodone HCl/Acetaminophen [Percocet 5/325] 1 tab PO Q6H PRN PRN 3 Days #12 tab PRN Reason: Pain Prescription Printed Referrals: Clara Mojica MD [STAFF PHYSICIAN] - 3-5 Days
[2020-12-19 17:36] LABS: Bacteria 0 SEEN /hpf (None Seen); Mucous, Urine 0 SEEN /hpf (<or=2+); White Blood Cells 0 SEEN /hpf (0-5)
[2020-12-19] MEDS: Ondansetron 4 MG/2 ML Vial IV (17:46)
[2020-12-19] MEDS: Morphine 4 MG/ML Syringe IV (18:05)
[2020-12-19 18:14] LABS: Color, Urine Yellow (Yellow); Glucose, Dipstick 50 mg/dl (Normal); Ketone-Dipstick 5 mg/dl (Negative); Leukocyte Esterase-Dipstick Negative /ul (Negative); Nitrite-Dipstick Negative (Negative); Occult Blood-Urine 150 /ul (Negative); Protein-Dipstick Negative (Negative); Urine Bilirubin Dipstick Negative (Negative); Urine Clarity Sl. Cloudy (Clear); Urine Urobilinogen 1 mg/dl (Normal)
[2020-12-19 18:21] LABS: Amorphous Sediment 1+ PHOS; Red Blood Cells-Urine 10-25 SEEN /hpf (0-5); Squamous Epithelial Cells - UA 10-25 SEEN /hpf (5-10)
[2020-12-19 18:31] VITALS: BP 143/104; PULSE 82; RESP 18; O2SAT 99
[2020-12-19 19:14] VITALS: RESP 18
== END 2020-12-19 19:16 | disposition home or self-care (01) ==
PROVIDERS: Emergency Provider Emergency Medicine; PCP Family Medicine
DX: R10.9 Unspecified abdominal pain (principal); R30.0 Dysuria; R68.83 Chills (without fever); Z87.442 Personal history of urinary calculi
CPT/HCPCS: 74176; 80048; 81001; 85025; 96361; 96374; 96375; 99284; J7030; A4216; J2405

== ENCOUNTER 2021-03-05 09:08 | Emergency (ER) | payer OTHER, MEDICAID, SELFPAY ==
[2021-03-05 09:11] VITALS: BP 138/79; PULSE 90; RESP 17; TEMP 36.2; O2SAT 97; BMI 26.8
[2021-03-05 09:20] VITALS: BP 138/79; PULSE 90; RESP 16; RESP 17; TEMP 36.2; O2SAT 97
--- NOTE | 2021-03-05 09:25 | CT_ITS ---
STUDY: CT ABDOMEN AND PELVIS WITHOUT CONTRAST REASON FOR EXAM: Female, 45 years old. Pain RADIATION DOSAGE (If Supplied By Facility): CTDIvol = ( 7.06 ) mGy, DLP = ( 354.32 ) mGycm TECHNIQUE: Transaxial images were obtained from the dome of the diaphragm to the symphysis pubis without oral contrast, and without intravenous contrast. Sagittal and coronal images were reconstructed. Individualized dose optimization techniques were used for this CT. COMPARISON: 12/19/2020 FINDINGS: The visualized lung bases are unremarkable. The visualized portions of the heart are within normal limits. Normal liver. There are surgical clips in the gallbladder fossa consistent with a prior cholecystectomy. Normal spleen. Normal pancreas. Normal bilateral adrenal glands. Normal right kidney. Normal left kidney. Normal visualized stomach. Normal small intestine. Normal colon. There are surgical clips in the region of the appendix consistent with a prior appendectomy. Normal abdominal aorta. Normal inferior vena cava. Normal retroperitoneum. Normal urinary bladder. Normal abdominal wall. Normal osseous structures. CT/Abdomen/Pelvis without Cont IMPRESSION: Normal unenhanced CT of the abdomen and pelvis. Electronically Signed: Vlad Junior MD at 10:11 EDT Tel , Service support ,
--- NOTE | 2021-03-05 09:27 | ED.VIS.GI ---
HPI HPI - GI History of Present Illness Chief Complaint: Complaint Detail of Chief Complaint: Abdominal pain and hematuria for about a month Informant: patient Abdominal Pain/Flank Pain Timing: Intermittent Current Severity: 05/07 Nausea/Vomiting/Emesis GI Symptom: Positive for Nausea Diarrhea/Melena/Hematochezia GI Symptom: Negative for Diarrhea Stool Quality: Negative for Loose Associated Symptoms Associated Symptoms: Positive for Hematuria Narrative Narrative: Patient presents with multiple complaints for about a month. She complains of lower back pain and hematuria intermittently. This morning she had bright red blood in her urine. Patient is noticed a little bit of a foul odor to the urine. She is had nausea but no vomiting. She describes lower abdominal pain. Patient's had prior cholecystectomy and appendectomy. Patient does have history of urethral mesh. Patient has history of kidney stones. She denies fevers. No COVID-19 exposures and she is fully vaccinated. Prior similar symptoms: No Recent Illness/Hospitalization: No PFSH PFSH Medical History (Updated 03/05/21 @ 10:[address] Mylene Kaur, ) Anemia Arthritis Chronic neck and back pain History of uterine ablasion Knee pain Limb weakness Shoulder pain Home Medications zolpidem 10 mg PO QHS PRN 02/25/16 [History Last Taken 01/17/18 5 MG] alprazolam 1 mg PO TID PRN PRN 08/20/16 [History Last Taken 01/18/18 0.5 MG] oxycodone-acetaminophen [Percocet] 1 tab PO Q8H PRN 2 Days #7 tab 03/05/21 [Rx Last Taken Unknown] Allergy/AdvReac Type Severity Reaction Status Date / Time docosahexanoic acid Allergy Hives Verified 03/05/21 09:10 [From [facility]] gabapentin Allergy Other Verified 03/05/21 09:10 iron amino acid chelate Allergy Hives Verified 03/05/21 09:10 [From [facility]] methyltetrahydrofolate Allergy Hives Verified 03/05/21 09:10 gluc.,folic [From [facility]] vitamins Allergy Hives Verified 03/05/21 09:10 combination no.39 [From [facility]] hydrocodone AdvReac Itching Verified 03/05/21 09:10 morphine AdvReac Vomiting Verified 03/05/21 09:10 topiramate [From Topamax] AdvReac Other Verified 03/05/21 09:10 Surgical History History of appendectomy History of bilateral tubal ligation History of cholecystectomy History of tonsillectomy Social History Smoking Status: Light Smoker (<10/day) ROS ROS ED Constitutional Constitutional ED: Reports systems reviewed and no addt'l complaints, except as documented, chills and sweats; Denies body ache(s), change in weight or fever(s) Eyes Eyes: Denies acute decrease in peripheral vision, change in vision, double vision or loss of vision ENT ENT ED: Reports none; Denies ear pain, lip swelling, loss taste/smell, neck pain, otalgia or sore throat Cardiovascular Cardiovascular: Reports none; Denies abdominal pain, chest pain with activity, leg edema, lightheadedness, palpitations, rapid heart rate or syncope Respiratory/Chest Respiratory/Chest: Reports none; Denies change in mental status, dry cough, dyspnea, hemoptysis, shortness of breath at rest or shortness of breath with exertion Gastrointestinal Gastrointestinal: Reports none, abdominal pain and nausea; Denies change in stool character, diarrhea, hematemesis, hematochezia, melena, rectal bleeding or vomiting Genitourinary Genitourinary ED: Reports none and hematuria; Denies abdominal discomfort, anuria, dysuria, genital pain or polyuria Musculoskeletal Musculoskeletal: Reports none; Denies arthralgias, back pain, difficulty walking, extremity pain, muscle weakness or myalgias Integumentary Reports none; Denies abscess or rash Neurologic Neurologic: Reports none; Denies abnormal gait, confusion, focal weakness, frequent falls, headache(s), loss of vision, numbness, paresthesias, radicular pain, vertigo or weakness Psychiatric Psychiatric: Reports systems reviewed and no addt'l complaints, except as documented and none; Denies behavioral changes, confusion, difficulty concentrating, hallucinations, suicidal ideation, tactile hallucinations or visual hallucinations Endocrine Endocrinology: Denies none, cold intolerance, excessive sweating, fatigue or heat intolerance Hematologic/Lymphatic Hematologic/Lymphatic: Reports none; Denies anemia, easy bleeding or easy bruising Allergic/Immunologic Allergic/Immunologic ED: Denies as per HPI, none, lip swelling, mouth swelling, throat swelling, tongue swelling or hives EXAM Physical Exam Const Vital Signs: 03/05/21 09:11 03/05/21 09:20 Temperature 97.2 F L 97.2 F L Temperature Source Temporal Temporal Pulse Rate 90 90 Respiratory Rate 17 17 Blood Pressure 138/79 H 138/79 H Blood Pressure Mean 98 98 Pulse Ox 97 97 Oxygen Delivery Method Room Air Room Air Positive well nourished and well developed General Appearance ED: well developed and NAD HEENT Reports TM's clear and moist mucous membranes normocephalic and atraumatic; Negative for trauma or tenderness Tympanic Membrane ED: Yes TM's clear Eyes PERRL and EOMs intact bilaterally General Eye ED: Negative for pale conjunctiva or scleral icterus Neck no lymphadenopathy, supple and no JVD General: Negative for tenderness Chest Wall inspection of chest normal and palpation of chest normal Chest: Negative for tenderness Resp normal respiratory effort and clear to auscultation bilaterally Effort and Inspection: Negative for respiratory distress or pain with movement Auscultation: Negative for rhonchi, wheezes or diminished lung sounds Cardio regular rate, regular rhythm, S1 normal heart sound, S2 normal heart sound and no murmurs Peripheral Pulses: pulses 2+ throughout GI normal to inspection, nondistended, normoactive bowel sounds, soft to palpation, non-distended and no masses; Negative for non-tender Palpation: soft, tender LLQ and RLQ and guarding Back/Spine no thoracic nor lumbar tenderness; Negative for no CVA tenderness General Back: CVA tenderness bilateral Cervical Spine: Negative for cervical spine tenderness Extremity normal to inspection General Extremety ED: Negative for edema General Extremity: Negative for edema Neuro oriented x3, CN's II-XII intact bilaterally, no sensory deficits noted and gait normal Sensorium / Orientation: awake, alert, oriented to person, oriented to place and oriented to time Motor Exam: strength 5/5 throughout and strength abnormal Psych mental status grossly normal Skin no rashes or lesions noted and no wounds MDM MDM MDM Narrative Medical decision making narrative: Patient labs unremarkable. Urine without infection. CT flank unremarkable. At this point etiology of patient's discomfort unclear. Patient will be referred to her urologist for follow-up if persistent hematuria. Lab Data Attestation: I reviewed the patient's lab results. Labs: Laboratory Results - last 24 hr 03/05/21 03/05/21 03/05/21 09:18 09:30 09:30 WBC 9.7 RBC 4.56 Hgb 13.9 Hct 40.6 MCV 89.0 MCH 30.5 MCHC 34.2 RDW Std Deviation 40.1 RDW Coeff of Gladis 12.4 Plt Count 387 MPV 9.0 Immature Gran % (Auto) 0.600 Neut % (Auto) 70.3 H Lymph % (Auto) 21.9 [place] % (Auto) 6.5 Eos % (Auto) 0.4 Baso % (Auto) 0.3 Absolute Neuts (auto) 6.8 Absolute Lymphs (auto) 2.11 Nucleated RBC % 0 Sodium 138 Potassium 3.3 L Chloride 106 Carbon Dioxide 26.0 Anion Gap 6 BUN 8 Creatinine 0.92 Estim Creat Clear Calc 70.95 Est GFR (MDRD) Af Amer 85 Est GFR (MDRD) Non-Af 70 BUN/Creatinine Ratio 8.7 L Glucose 98 Calcium 9.6 Serum , Qual Urine Color Yellow Urine Clarity Clear Urine pH 6.5 Ur Specific [place] 1.010 Urine Protein Negative Urine Glucose (UA) Normal Urine Ketones 5 H Urine Occult Blood 150 H Urine Nitrite Negative Urine Bilirubin Negative Urine Urobilinogen Normal Ur Leukocyte Esterase 25 H Urine RBC 0 SEEN Urine WBC 0 SEEN Ur Squamous Epith Cells 0-5 SEEN Urine Bacteria RARE Urine Mucus 0 SEEN Urine Yeast 1+ 03/05/21 09:30 WBC RBC Hgb Hct MCV MCH MCHC RDW Std Deviation RDW Coeff of Gladis Plt Count MPV Immature Gran % (Auto) Neut % (Auto) Lymph % (Auto) [place] % (Auto) Eos % (Auto) Baso % (Auto) Absolute Neuts (auto) Absolute Lymphs (auto) Nucleated RBC % Sodium Potassium Chloride Carbon Dioxide Anion Gap BUN Creatinine Estim Creat Clear Calc Est GFR (MDRD) Af Amer Est GFR (MDRD) Non-Af BUN/Creatinine Ratio Glucose Calcium Serum , Qual NEGATIVE Urine Color Urine Clarity Urine pH Ur Specific [place] Urine Protein Urine Glucose (UA) Urine Ketones Urine Occult Blood Urine Nitrite Urine Bilirubin Urine Urobilinogen Ur Leukocyte Esterase Urine RBC Urine WBC Ur Squamous Epith Cells Urine Bacteria Urine Mucus Urine Yeast Radiography Diagnostic Testing: Radiology Impression Abdomen/Pelvis CT 03/05/21 09:25 IMPRESSION: Normal unenhanced CT of the abdomen and pelvis. Electronically Signed: Vlad Junior MD at 10:11 EDT Tel , Service support , Discharge Plan Triage Chief Complaint: Complaint ED Provider: Mylene Kaur Dx/Rx/DC Orders Clinical Impression: Hematuria, Back pain, Abdominal pain in female Instructions: ED Abdominal Pain Unkn Cause Fem, ED Back Pain (Acute or Chronic), ED Hematuria Prescriptions: New oxycodone-acetaminophen [Percocet] 5-325 mg tablet 1 tab PO Q8H PRN (Reason: pain) 2 Days Qty: 7 RF: 0 No Action zolpidem 10 MG tablet 10 mg PO QHS PRN (Reason: Insomnia) RF: 0 alprazolam 1 MG tablet 1 mg PO TID PRN PRN (Reason: Anxiety) RF: 0 Primary Care Provider: Celine Villalobos Referrals: Celine Villalobos MD [Primary Care Provider] - Clara Mojica MD [STAFF PHYSICIAN] - As Needed Disposition Disposition: Home, self care
[2021-03-05 09:31] LABS: Mucous, Urine 0 SEEN /hpf (<or=2+); Red Blood Cells-Urine 0 SEEN /hpf (0-5); White Blood Cells 0 SEEN /hpf (0-5)
[2021-03-05 09:41] LABS: Glucose, Dipstick Normal (Normal); Ketone-Dipstick 5 mg/dl (Negative); Leukocyte Esterase-Dipstick 25 /ul (Negative); Nitrite-Dipstick Negative (Negative); Occult Blood-Urine 150 /ul (Negative); Protein-Dipstick Negative (Negative); Urine Bilirubin Dipstick Negative (Negative); Urine Urobilinogen Normal (Normal); Urine pH 6.5 (5.0 - 8.0)
[2021-03-05] MEDS: 0.9% Normal Saline 1,000 ML 125 ML IV (09:44)
[2021-03-05] MEDS: Ondansetron 4 MG/2 ML Vial IV (09:44)
[2021-03-05 09:46] LABS: Color, Urine Yellow (Yellow); Urine Clarity Clear (Clear)
[2021-03-05] MEDS: Ketorolac 30 MG/ML Syringe IV (09:46)
[2021-03-05] MEDS: Morphine 4 MG/ML Syringe IV (09:48)
[2021-03-05 10:05] LABS: Bacteria RARE /hpf (None Seen); Squamous Epithelial Cells - UA 0-5 SEEN /hpf (5-10); Yeast-Urine 1+ /hpf (None Seen)
[2021-03-05 10:08] LABS: Internal QC Validated? YES +Cl - CLEAR BKGD; Pregnancy, Serum, hCG Quali. NEGATIVE Negative
[2021-03-05 10:09] LABS: Absolute Lymphocyte Count 2.11 X10^3/uL (0.83-4.51); Absolute Neutrophil Count 6.8 X10^3/uL (2.0-7.7); Basophil# 0.03 X10^3/uL; Basophil% 0.3 % (0-1); Eosinophil# 0.04 X10^3/uL; Eosinophils% 0.4 % (0-5); Hematocrit 40.6 % (37-47); Hemoglobin 13.9 g/dL (12.0-15.0); Lymphocyte # 2.11 X10^3/ul (0.83-4.51); Lymphocyte % 21.9 % (19-41); Mean Corp Hgb Conc 34.2 g/dL (32-36); Mean Corpuscular Hgb 30.5 pg (27.0-32.0); Monocyte# 0.63 X10^3/uL; Monocyte% 6.5 % (0-10); NRBC Flagged by Analyzer 0 % (0-5); Neutrophil # 6.78 X10^3/uL (2.7-7.7); Neutrophil % 70.3 % (47-70); Platelet Count 387 K/mm3 (150-450); RBC Distribution Width CV 12.4 % (11.6-14.6); RBC Distribution Width SD 40.1 fl (35.1-43.9); Red Blood Count 4.56 M/mm3 (4.2-5.4); White Blood Count 9.7 K/mm3 (4.4-11.0)
[2021-03-05 10:14] LABS: Anion Gap 6 (5-15); BUN 8 mg/dL (7-18); BUN/Creat Ratio 8.7 RATIO (10-20); Calcium,Total 9.6 mg/dL (8.5-10.1); Chloride 106 mmol/L (98-107); Creatinine, Serum 0.92 mg/dL (0.55-1.02); EST Glomerular Filtration Rate 70 mL/min (>60); Est Glom Filt Rate - Afr Amer 85 mL/min (>60); Estimated Creatinine Clearance 70.95 ml/min; Glucose 98 mg/dL (74-106); Potassium 3.3 mmol/L (3.5-5.1); Sodium Level 138 mmol/L (136-145)
[2021-03-05 10:41] VITALS: BP 129/77; PULSE 67; RESP 14; O2SAT 98
== END 2021-03-05 10:42 | disposition home or self-care (01) ==
PROVIDERS: Emergency Provider Emergency Medicine; PCP Family Medicine
DX: R31.9 Hematuria, unspecified (principal); M54.5 Low back pain; R11.0 Nausea; R10.9 Unspecified abdominal pain; M19.90 Unspecified osteoarthritis, unspecified site; G89.29 Other chronic pain; M54.2 Cervicalgia; Z86.2 Personal history of diseases of the blood and blood-forming organs and certain disorders involving the immune mechanism; Z87.442 Personal history of urinary calculi; Z90.49 Acquired absence of other specified parts of digestive tract; F17.200 Nicotine dependence, unspecified, uncomplicated
CPT/HCPCS: 74176; 80048; 81001; 84703; 85025; 96361; 96374; 96375; 99284; J7030; A4216; J2405

== ENCOUNTER 2021-03-14 15:12 | Emergency (ER) | payer OTHER, MEDICAID, SELFPAY ==
[2021-03-14 15:13] VITALS: BP 119/61; PULSE 71; RESP 18; TEMP 36.7; O2SAT 99; BMI 26.6
--- NOTE | 2021-03-14 15:31 | CT_ITS ---
STUDY: CTA HEAD AND NECK WITH CONTRAST REASON FOR EXAM: Female, 45 years old. Headache. Worsening headache over series of months. History of migraines but this is worse headache. Nausea and ringing in the ears. RADIATION DOSAGE (If Supplied By Facility): CTDIvol = ( 29.59 ) mGy, DLP = ( 1566.89 ) mGycm TECHNIQUE: CT angiography was performed with a multi-detector CT scanner. Data acquisition was obtained from the skull base through the vertex following intravenous administration of IV 100mL [id number]-[id number]. MIP images were reconstructed from the axial data set. Post-processing of the angiographic images was performed, with multiplanar reformation and 3D reconstruction. Individualized dose optimization techniques were used for this CT. COMPARISON: No relevant priors. FINDINGS: Normal bilateral petrous carotid arteries. Normal right cavernous carotid artery with a normal supraclinoid bifurcation. Normal left cavernous carotid artery with a normal supraclinoid bifurcation. Normal right A1 segments of the anterior cerebral artery. Normal left A1 segments of the anterior cerebral artery. Normal intact anterior communicating artery (ACOM). Normal bilateral A2 segments of the anterior cerebral arteries. Normal right M1 and M2 segments of the middle cerebral arteries, with a normal M1 bifurcation. Normal left M1 and M2 segments of the middle cerebral arteries, with a normal M1 bifurcation. There is non-visualization of the right posterior communicating artery (PCOM). There is non-visualization of the left posterior communicating artery (PCOM). Normal bilateral vertebral arteries. Normal basilar artery with a normal basilar bifurcation. The visualized bilateral superior cerebellar (SCA) arteries are normal. Normal bilateral P1, P2 and visualized P3 segments of the posterior cerebral arteries. There is no demonstrated aneurysm of the [place] of [place]. There is no demonstrated abnormality of the visualized brain. AORTIC ARCH: Normal visualized aortic arch. Normal origins of the brachiocephalic, left common carotid, and left subclavian arteries. RIGHT CAROTID ARTERIES: Normal right common carotid artery (CCA). Normal right common carotid bulb. Normal origin of the right internal carotid (ICA) artery without a hemodynamically significant stenosis. Normal visualized cervical portion of the right internal carotid artery. Normal origin of the right external carotid artery (ECA). LEFT CAROTID ARTERIES: Normal left common carotid artery (CCA). Normal left common carotid bulb. Normal origin of the left internal carotid (ICA) artery without a hemodynamically significant stenosis. Normal visualized cervical portion of the left internal carotid artery. Normal origin of the left external carotid artery (ECA). VERTEBRAL ARTERIES: Normal bilateral vertebral arteries. CT/CTA Head AND Neck W/ Contrast IMPRESSION: Normal CTA Head and neck with contrast. Electronically Signed: Rios Becerra DO at 17:10 EDT Tel [phone], Service support ,
[2021-03-14] MEDS: Metoclopramide 10 MG/2 ML Vial IV (15:54)
[2021-03-14] MEDS: DiphenhydrAMINE 50 MG/ML Syringe 25 MG IV (15:54)
--- NOTE | 2021-03-14 16:07 | EX.ED.DYSGE1 ---
HPI History of Present Illness Chief Complaint: Headache Informant: patient Narrative Narrative: 45-year-old female presenting with headache. Patient states she has been having intermittent headaches for the past 2 months. Headache today was gradual in onset. States she was at the [employer] office and started having headache. She has nausea with no vomiting. She denies fever. She states her ophthalmology evaluation was unremarkable. She states she was weaned off Klonopin in October and now takes Xanax for anxiety. She feels her headaches have worsened since that time. She denies suicidal ideation. Prior similar symptoms: Yes Recent Illness/Hospitalization: No PFSH PFS Medical History (Updated 03/14/21 @ 17:[address] Morenita Sifuentes MD) Anemia Arthritis Chronic neck and back pain History of uterine ablasion Knee pain Limb weakness Shoulder pain Home Medications zolpidem 10 mg PO QHS PRN 02/25/16 [History Last Taken 01/17/18 5 MG] alprazolam 1 mg PO TID PRN PRN 08/20/16 [History Last Taken 01/18/18 0.5 MG] cetirizine [Zyrtec] 10 mg PO DAILY PRN 03/14/21 [History Last Taken Unknown] Allergy/AdvReac Type Severity Reaction Status Date / Time docosahexanoic acid Allergy Hives Verified 03/14/21 15:13 [From [facility]] gabapentin Allergy Other Verified 03/14/21 15:13 iron amino acid chelate Allergy Hives Verified 03/14/21 15:13 [From [facility]] methyltetrahydrofolate Allergy Hives Verified 03/14/21 15:13 gluc.,folic [From [facility]] vitamins Allergy Hives Verified 03/14/21 15:13 combination no.39 [From [facility]] hydrocodone AdvReac Itching Verified 03/14/21 15:13 morphine AdvReac Vomiting Verified 03/14/21 15:13 topiramate [From Topamax] AdvReac Other Verified 03/14/21 15:13 Surgical History History of appendectomy History of bilateral tubal ligation History of cholecystectomy History of tonsillectomy Social History Smoking Status: Light Smoker (<10/day) ROS ROS ED Constitutional Constitutional ED: Denies fever(s) Eyes Eyes: Denies change in vision ENT ENT ED: Denies rhinorrhea or sore throat Cardiovascular Cardiovascular: Denies chest pain or palpitations Respiratory/Chest Respiratory/Chest: Denies cough or dyspnea Gastrointestinal Gastrointestinal: Reports nausea; Denies abdominal pain, diarrhea or vomiting Genitourinary Genitourinary ED: Denies dysuria Musculoskeletal Musculoskeletal: Denies myalgias Integumentary Denies rash Neurologic Neurologic: Reports headache(s); Denies paresthesias or weakness Psychiatric Psychiatric: Denies suicidal thoughts EXAM Physical Exam Const Vital Signs: 03/14/21 15:13 03/14/21 16:45 03/14/21 17:18 Temperature 98.1 F Temperature Source Temporal Pulse Rate 71 76 Respiratory Rate 18 16 Blood Pressure 119/61 99/71 104/61 Blood Pressure Mean 80 80 75 Pulse Ox 99 94 Oxygen Delivery Method Room Air Room Air Positive well nourished and well developed General Appearance ED: well developed HEENT Reports normocephalic and head/scalp atraumatic Eyes PERRL and EOMs intact bilaterally Neck supple Neck Narrative: No meningismus General: Negative for tenderness Chest Wall inspection of chest normal Resp normal respiratory effort and clear to auscultation bilaterally Cardio regular rate and regular rhythm GI non-tender and non-distended Palpation: soft; Negative for guarding or rebound tenderness present no CVA tenderness Extremity normal to inspection Neuro oriented x3 and CN's II-XII intact bilaterally Sensorium / Orientation: alert Psych mental status grossly normal Skin no rashes or lesions noted MDM MDM MDM Narrative Medical decision making narrative: Patient was given Reglan, Benadryl IV. CTA head and neck normal. Patient was given Toradol IV with improvement. She states her headache is significantly improved. She will be discharged to follow-up with her primary care physician. Advised return to ED if worsening complaints. Lab Data Attestation: I reviewed the patient's lab results. Labs: Laboratory Results - last 24 hr 03/14/21 03/14/21 15:50 15:50 WBC 12.6 H RBC 4.11 L Hgb 12.9 Hct 36.9 L MCV 89.8 MCH 31.4 MCHC 35.0 RDW Std Deviation 39.8 RDW Coeff of Gladis 12.1 Plt Count 335 MPV 9.2 Immature Gran % (Auto) 0.400 Neut % (Auto) 79.6 H Lymph % (Auto) 15.0 L [place] % (Auto) 4.1 Eos % (Auto) 0.6 Baso % (Auto) 0.3 Absolute Neuts (auto) 10.1 H Absolute Lymphs (auto) 1.89 Nucleated RBC % 0 Sodium 139 Potassium 3.4 L Chloride 107 Carbon Dioxide 26.0 Anion Gap 6 BUN 9 Creatinine 0.84 Estim Creat Clear Calc 77.71 Est GFR (MDRD) Af Amer 95 Est GFR (MDRD) Non-Af 78 BUN/Creatinine Ratio 10.7 Glucose 130 H Calcium 9.5 Radiography Diagnostic Testing: Radiology Impression Head/Neck CTA 03/14/21 15:31 IMPRESSION: Normal CTA Head and neck with contrast. Electronically Signed: Rios Becerra DO at 17:10 EDT Tel [phone], Service support , Discharge Plan Triage Chief Complaint: Headache ED Provider: Morenita Sifuentes Dx/Rx/DC Orders Clinical Impression: Headache Instructions: ED Headache Unspecified Prescriptions: No Action zolpidem 10 MG tablet 10 mg PO QHS PRN (Reason: Insomnia) RF: 0 alprazolam 1 MG tablet 1 mg PO TID PRN PRN (Reason: Anxiety) RF: 0 Zyrtec 10 mg Capsule 10 mg PO DAILY PRN (Reason: allergies) RF: 0 Primary Care Provider: Celine Villalobos Referrals: Celine Villalobos MD [Primary Care Provider] - Disposition Disposition: Home, self care
[2021-03-14 16:09] LABS: Absolute Lymphocyte Count 1.89 X10^3/uL (0.83-4.51); Absolute Neutrophil Count 10.1 X10^3/uL (2.0-7.7); Basophil# 0.04 X10^3/uL; Basophil% 0.3 % (0-1); Eosinophil# 0.08 X10^3/uL; Eosinophils% 0.6 % (0-5); Hematocrit 36.9 % (37-47); Hemoglobin 12.9 g/dL (12.0-15.0); Lymphocyte # 1.89 X10^3/ul (0.83-4.51); Mean Corpuscular Hgb 31.4 pg (27.0-32.0); Mean Corpuscular Volume 89.8 fL (81-99); Mean Platelet Vol. 9.2 fl (6.2-12.0); Monocyte# 0.52 X10^3/uL; Monocyte% 4.1 % (0-10); NRBC Flagged by Analyzer 0 % (0-5); Neutrophil # 10.06 X10^3/uL (2.7-7.7); Neutrophil % 79.6 % (47-70); Platelet Count 335 K/mm3 (150-450); RBC Distribution Width CV 12.1 % (11.6-14.6); RBC Distribution Width SD 39.8 fl (35.1-43.9); Red Blood Count 4.11 M/mm3 (4.2-5.4); White Blood Count 12.6 K/mm3 (4.4-11.0)
[2021-03-14 16:31] LABS: Anion Gap 6 (5-15); BUN 9 mg/dL (7-18); BUN/Creat Ratio 10.7 RATIO (10-20); Calcium,Total 9.5 mg/dL (8.5-10.1); Chloride 107 mmol/L (98-107); Creatinine, Serum 0.84 mg/dL (0.55-1.02); EST Glomerular Filtration Rate 78 mL/min (>60); Est Glom Filt Rate - Afr Amer 95 mL/min (>60); Estimated Creatinine Clearance 77.71 ml/min; Glucose 130 mg/dL (74-106); Potassium 3.4 mmol/L (3.5-5.1); Sodium Level 139 mmol/L (136-145)
[2021-03-14 16:45] VITALS: BP 99/71
[2021-03-14 17:18] VITALS: BP 104/61; PULSE 76; RESP 16; O2SAT 94
[2021-03-14] MEDS: Ketorolac 30 MG/ML Syringe IV (17:20)
[2021-03-14 17:55] VITALS: BP 105/57; PULSE 77; RESP 16; O2SAT 98
== END 2021-03-14 17:56 | disposition home or self-care (01) ==
PROVIDERS: Emergency Provider Emergency Medicine; PCP Family Medicine
DX: R51.9 Headache, unspecified (principal); R11.0 Nausea; F41.9 Anxiety disorder, unspecified; M19.90 Unspecified osteoarthritis, unspecified site; M54.2 Cervicalgia; M54.9 Dorsalgia, unspecified; G89.29 Other chronic pain; Z86.2 Personal history of diseases of the blood and blood-forming organs and certain disorders involving the immune mechanism; Z79.899 Other long term (current) drug therapy
CPT/HCPCS: 70496; 70498; 80048; 85025; 96361; 96374; 96375; 99285; J7030; Q9967

== ENCOUNTER → 2021-04-14 08:15 | Outpatient (CLI) | payer MEDICAID, SELFPAY ==
[2021-04-06 15:57] VITALS: BMI 27.1
--- NOTE | 2021-04-14 08:21 | ECHOD_ITS ---
Version 2 Reason For Study: MITRAL VALVE PROLAPSE Procedure This was a 2D Doppler, Color Flow transthoracic echocardiogram. Exam performed in department. Left Ventricle Normal LV size. Left ventricular systolic function is normal. The estimated ejection fraction is 60 %. No regional wall motion abnormalities noted. Right Ventricle Normal RV size. Normal systolic function. Atria Normal left atrium. Normal right atrium. Mitral Valve Normal mitral valve. No obvious prolapse. Mild (1+) eccentric mitral valve insufficiency. Tricuspid Valve Normal tricuspid valve. Aortic Valve Normal aortic valve. Pulmonic Valve Normal pulmonic valve. Great Vessels Normal aortic root. The pulmonary artery is normal size. Normal inferior vena cava. Pericardium/Pleural No pericardial effusion. MMode/2D Measurements & Calculations LVIDd: 5.2 cm IVSd: 0.84 cm Ao root diam: 2.8 cm LVIDs: 3.6 cm LVPWd: 0.81 cm RVDd: 3.2 cm FS: 30.1 % LAV(MOD-bp): 36.8 ml LVAd ap4: 26.1 cm2 SV(MOD-sp4): 41.9 ml LAV(MOD-bp) Indexed: 20.3 ml/m2 LVLd ap4: 7.9 cm LAV(MOD-sp2): 36.8 ml EDV(MOD-sp4): 72.6 ml LAV(MOD-sp4): 38.7 ml EDV(sp4-el): 73.8 ml LVAs ap4: 15.2 cm2 LVLs ap4: 6.6 cm ESV(MOD-sp4): 30.7 ml ESV(sp4-el): 29.9 ml EF(MOD-sp4): 57.7 % EF(sp4-el): 59.5 % SV(sp4-el): 43.9 ml LA A4 area: 14.5 cm2 LA dimension(2D): 3.6 cm RA A4 area: 12.7 cm2 Time Measurements MV dec time: 0.23 sec Doppler Measurements & Calculations MV E max lc: 61.6 cm/sec Lat Peak E' Lc: 10.6 cm/sec Med Peak E' Lc: 8.1 cm/sec MV A max lc: 62.0 cm/sec E/E' lat: 5.8 E/E' med: 7.6 MV E/A: 0.99 Ao V2 max: 142.3 cm/sec LV V1 max: 81.8 cm/sec PA V2 max: 108.9 cm/sec Ao max P.1 mmHg LV V1 max P.7 mmHg PI end-d lc: 65.7 cm/sec ECHO/Echo Complete Interpretation Summary Normal LV size. Left ventricular systolic function is normal. The estimated ejection fraction is 60 %. Mild (1+) eccentric mitral valve insufficiency. No obvious prolapse. Ordering Physician: Charly Katz Referring Physician: TING CHARLES Performed By: Negra Kc RDCS
== END ==
PROVIDERS: PCP Family Medicine; Referring Provider Internal Medicine Cardiovascular Disease; Visit Provider Internal Medicine Cardiovascular Disease
DX: S93.402A Sprain of unspecified ligament of left ankle, initial encounter (principal); X50.1XXA Overexertion from prolonged static or awkward postures, initial encounter; Y93.9 Activity, unspecified; Y92.9 Unspecified place or not applicable; I34.1 Nonrheumatic mitral (valve) prolapse; R00.2 Palpitations; F41.9 Anxiety disorder, unspecified; M19.90 Unspecified osteoarthritis, unspecified site; G89.29 Other chronic pain; M54.2 Cervicalgia; M54.9 Dorsalgia, unspecified; Z87.442 Personal history of urinary calculi; Z86.2 Personal history of diseases of the blood and blood-forming organs and certain disorders involving the immune mechanism; Z79.899 Other long term (current) drug therapy; F17.210 Nicotine dependence, cigarettes, uncomplicated
CPT/HCPCS: 73610; 73630; 93225; 93226; 93306; 99283

== ENCOUNTER 2021-04-14 09:04 | Emergency (ER) | payer MEDICAID, SELFPAY ==
[2021-04-06 15:57] VITALS: BMI 27.1
[2021-04-14 09:06] VITALS: BP 139/73; PULSE 81; RESP 16; TEMP 36.1; O2SAT 97; BMI 28.2
--- NOTE | 2021-04-14 09:17 | ED.VIS.LOWEX ---
HPI History of Present Illness Chief Complaint: Lower Extremity Injury Informant: patient Occured/Mechanism Mechanism/Context: Yes other see comment below Comment: Was going down a flight of stairs in her home where there is a gate at the top, she turned to close the gait after going through it and twisted her ankle Onset/Context/Timing Onset: Days (3) Context: Sudden Onset Timing: Continuous Quality of Pain: Aching Location: Left ankle Current Severity: Mild Maximum Severity: Moderate Worsened by: Walking, twisting Relieved by: Rest Associated Symptoms Associated Symptoms: Negative for Parasthesia, Weakness and Loss of Funtion Narrative Narrative: Patient twisted her ankle and since then, she has had repeat minor twists with just walking because the ankle feels weak. No other injuries. Has been able to ambulate since the injury. More swollen at the end of the day. [facility] Medical History Anemia Anxiety Arthritis Back pain Chronic neck and back pain Insomnia Intermittent explosive disorder Knee pain Left ureteral calculus Limb weakness Medial epicondylitis of right elbow Mitral valve prolapse Shoulder pain MERNA (stress urinary incontinence, female) Home Medications zolpidem 10 mg PO QHS PRN 02/25/16 [History Last Taken 01/17/18 5 MG] alprazolam 1 mg PO TID PRN PRN 08/20/16 [History Last Taken 01/18/18 0.5 MG] cetirizine [Zyrtec] 10 mg PO DAILY PRN 03/14/21 [History Last Taken Unknown] fluticasone propionate 50 mcg/actuation nasal spray,suspension 1 spray INTRANASAL DAILY g 04/05/21 [History Last Taken Unknown] Allergy/AdvReac Type Severity Reaction Status Date / Time docosahexanoic acid Allergy Hives Verified 04/14/21 09:05 [From [facility]] gabapentin Allergy Other Verified 04/14/21 09:05 iron amino acid chelate Allergy Hives Verified 04/14/21 09:05 [From [facility]] methyltetrahydrofolate Allergy Hives Verified 04/14/21 09:05 gluc.,folic [From [facility]] vitamins Allergy Hives Verified 04/14/21 09:05 combination no.39 [From [facility]] topiramate [From Topamax] AdvReac Severe Other Verified 04/14/21 09:05 hydrocodone AdvReac Itching Verified 04/14/21 09:05 morphine AdvReac Vomiting Verified 04/14/21 09:05 Family History Mother Anxiety Brother Alcoholism Father Myocardial infarction, Onset Age: 60 Surgical History H/O LEEP History of appendectomy History of benign breast biopsy History of bilateral tubal ligation (~1996) History of cholecystectomy History of endometrial ablation (~2009) History of right knee surgery History of tonsillectomy History of ureter stent Social History Smoking Status: Current some day smoker tobacco type: cigarettes alcohol intake: never substance use type: marijuana ROS ROS ED Constitutional Constitutional ED: Denies chills or fever(s) Musculoskeletal Musculoskeletal: Reports extremity pain and other Details: Left forefoot pain for months prior to this injury ; Denies neck pain Integumentary Denies Abrasions, rash or wounds Neurologic Neurologic: Denies paresthesias or weakness EXAM Physical Exam Const Vital Signs: 04/14/21 09:06 Temperature 96.9 F L Temperature Source Temporal Pulse Rate 81 Respiratory Rate 16 Blood Pressure 139/73 H Blood Pressure Mean 95 Pulse Ox 97 Oxygen Delivery Method Room Air Positive well nourished and well developed General Appearance ED: well developed and NAD Neck full ROM and supple Back/Spine normal ROM and normal to inspection Extremity full ROM, normal capillary refill and no calf tenderness Extremity Narrative: Mild swelling just anterior to the left lateral malleolus, there is no significant bony tenderness throughout the left ankle and proximal fibula, there is mild tenderness in the peroneal aspect of the left midfoot but not the base of the 5th metatarsal. No deformities. Neuro oriented x3, no focal motor deficits and no sensory deficits noted Sensorium / Orientation: alert Psych mental status grossly normal and thought process normal Skin no wounds Rashes: no rashes MDM MDM MDM Narrative Medical decision making narrative: X-rays of the left ankle and left foot, 3 views of each series on my interpretation are negative for anything acute; radiology in agreement. Patient was reassured that she likely has ankle sprain, and she likely has a separate nontraumatic problem of her left forefoot for which I would recommend following up with a digital photographic printer. As I discussed with her, differential includes bursitis, Painter's neuroma, and other soft tissue possibilities. Advised to take anti-inflammatories and rest along with the Aircast she was given in follow-up. Radiography Diagnostic Testing: Radiology Impression Ankle X-Ray 04/14/21 09:30 IMPRESSION: Left ankle intact Electronically Signed: James Greg, at 9:50 EDT Tel , Service support , Foot X-Ray 04/14/21 09:30 IMPRESSION: Left foot intact Electronically Signed: James DO Greg at 9:53 EDT Tel , Service support , Discharge Plan Triage Chief Complaint: Lower Extremity Injury ED Provider: Sourav Sharp Dx/Rx/DC Orders Clinical Impression: Left ankle sprain, Left foot pain Instructions: ED Ankle Sprain (Adult) Prescriptions: No Action fluticasone propionate 50 mcg/actuation spray,suspension 1 spray intranasal DAILY RF: 0 zolpidem 10 MG tablet 10 mg PO QHS PRN (Reason: Insomnia) RF: 0 alprazolam 1 MG tablet 1 mg PO TID PRN PRN (Reason: Anxiety) RF: 0 Zyrtec 10 mg Capsule 10 mg PO DAILY PRN (Reason: allergies) RF: 0 Primary Care Provider: Celine Villalobos Referrals: Celine Villalobos MD [Primary Care Provider] - Ivett Ibanez DPM [STAFF PHYSICIAN] - 1-2 Weeks (Call for appointment regarding your chronic left foot pain and for follow-up ankle sprain) Activity Restrictions/Additional Instructions: Anti-inflammatory such as ibuprofen or Aleve as needed for pain/swelling. Disposition Disposition: Home, self care Discharge Date/Time: 04/14/21 09:55
--- NOTE | 2021-04-14 09:30 | RAD_ITS ---
STUDY: X-RAY - LEFT FOOT CLINICAL: Female, 46 years old. injury/pain TECHNIQUE: 3 view(s) of the foot. COMPARISON: 02/14/2019. FINDINGS: No acute fracture, dislocation or osseous destruction. No significant joint space narrowing. No significant productive changes. No significant soft tissue swelling. RAD/Foot min 3 Views IMPRESSION: Left foot intact Electronically Signed: James Garza DO at 9:53 EDT Tel , Service support ,
--- NOTE | 2021-04-14 09:30 | RAD_ITS ---
STUDY: X-RAY - LEFT ANKLE REASON FOR EXAM: Female, 46 years old. injury/pain TECHNIQUE: 3 view(s) of the ankle. COMPARISON: None. FINDINGS: No acute fracture, dislocation or osseous destruction. Ankle mortise well aligned. Minimal medial spurring. No significant soft tissue swelling. RAD/Ankle min 3 Views IMPRESSION: Left ankle intact Electronically Signed: James Garza DO at 9:50 EDT Tel , Service support ,
== END 2021-04-14 09:55 | disposition home or self-care (01) ==
LOC: ED 09:51
PROVIDERS: Emergency Provider Emergency Medicine; PCP Family Medicine
DX: S93.402A Sprain of unspecified ligament of left ankle, initial encounter (principal); X50.1XXA Overexertion from prolonged static or awkward postures, initial encounter; Y93.9 Activity, unspecified; Y92.9 Unspecified place or not applicable; F41.9 Anxiety disorder, unspecified; M19.90 Unspecified osteoarthritis, unspecified site; G89.29 Other chronic pain; M54.2 Cervicalgia; M54.9 Dorsalgia, unspecified; I34.1 Nonrheumatic mitral (valve) prolapse; Z86.2 Personal history of diseases of the blood and blood-forming organs and certain disorders involving the immune mechanism; Z87.442 Personal history of urinary calculi; Z79.899 Other long term (current) drug therapy; F17.210 Nicotine dependence, cigarettes, uncomplicated
CPT/HCPCS: 73610; 73630

== ENCOUNTER 2021-05-03 18:43 | Emergency (ER) | payer MEDICAID, SELFPAY ==
[2021-05-03 18:44] VITALS: BP 144/111; PULSE 92; RESP 18; TEMP 36.8; O2SAT 97; BMI 25.9
--- NOTE | 2021-05-03 18:59 | CT_ITS ---
STUDY: CT ABDOMEN AND PELVIS WITH CONTRAST REASON FOR EXAM: Female, 46 years old. Abdominal pain -- IV PO Contrast RADIATION DOSAGE (If Supplied By Facility): CTDIvol = ( 9.53 ) mGy, DLP = ( 657.60 ) mGycm TECHNIQUE: Transaxial images were obtained from the dome of the diaphragm to the symphysis pubis without oral contrast. IV 100mL Isovue-370 was administered. Sagittal and coronal images were reconstructed. Individualized dose optimization techniques were used for this CT. COMPARISON: 03/05/2021 FINDINGS: The visualized lung bases are unremarkable. The visualized portions of the heart are within normal limits. Normal liver. There are surgical clips in the gallbladder fossa consistent with a prior cholecystectomy. Normal spleen. Normal pancreas. Normal bilateral adrenal glands. Normal right kidney. Normal left kidney. Normal visualized stomach. Normal small intestine. There are multiple colonic diverticula consistent with diverticulosis. There is non-visualization of the appendix. Normal abdominal aorta. Normal inferior vena cava. Normal retroperitoneum. Normal urinary bladder. Normal abdominal wall. Normal osseous structures. CT/Abdomen/Pelvis WITH Contrast IMPRESSION: Colonic diverticulosis. No acute intra-abdominal process. Electronically Signed: Anabelle Nobles MD at 22:09 EDT Tel , Service support ,
--- NOTE | 2021-05-03 19:00 | EDS_ITS ---
HPI HPI - GI History of Present Illness Chief Complaint: Abd Pain Detail of Chief Complaint: Abdominal pain x2 weeks Informant: patient Abdominal Pain/Flank Pain Timing: Continuous Current Severity: 06/07 Narrative Narrative: Patient presents to the emergency department complaint of abdominal pain for the last 2 weeks. She describes a fist-like sensation in the epigastric region. Patient has tried antacids as well as ibuprofen and Xanax without any symptom relief. Pain is typically made worse by eating. At times the pain radiates to her back. Patient has had prior cholecystectomy and prior appendectomy. She has not had any blood in her stool or black tarry stool. Patient states that after eating sometimes will have loose stool soon after. Patient denies any fevers. She denies urinary symptoms. She has not had pain like this before. [facility] Medical History Anemia Anxiety Arthritis Back pain Chronic neck and back pain Insomnia Intermittent explosive disorder Knee pain Left ureteral calculus Limb weakness Medial epicondylitis of right elbow Mitral valve prolapse Shoulder pain MERNA (stress urinary incontinence, female) Home Medications zolpidem 10 mg PO QHS PRN 02/25/16 [History Last Taken 01/17/18 5 MG] alprazolam 1 mg PO TID PRN PRN 08/20/16 [History Last Taken 01/18/18 0.5 MG] cetirizine [Zyrtec] 10 mg PO DAILY PRN 03/14/21 [History Last Taken Unknown] fluticasone propionate 50 mcg/actuation nasal spray,suspension 1 spray INTRANASAL DAILY g 04/05/21 [History Last Taken Unknown] lansoprazole [Prevacid] 30 mg PO DAILY #30 cap 05/03/21 [Rx Last Taken Unknown] oxycodone-acetaminophen 1 tab PO Q6H PRN PRN 3 Days #12 tablet 05/03/21 [Rx Last Taken Unknown] Allergy/AdvReac Type Severity Reaction Status Date / Time docosahexanoic acid Allergy Hives Verified 05/03/21 18:44 [From [facility]] gabapentin Allergy Other Verified 05/03/21 18:44 iron amino acid chelate Allergy Hives Verified 05/03/21 18:44 [From [facility]] methyltetrahydrofolate Allergy Hives Verified 05/03/21 18:44 gluc.,folic [From [facility]] vitamins Allergy Hives Verified 05/03/21 18:44 combination no.39 [From [facility]] topiramate [From Topamax] AdvReac Severe Other Verified 05/03/21 18:44 hydrocodone AdvReac Itching Verified 05/03/21 18:44 morphine AdvReac Vomiting Verified 05/03/21 18:44 Family History Mother Anxiety Brother Alcoholism Father Myocardial infarction, Onset Age: 60 Surgical History H/O LEEP History of appendectomy History of benign breast biopsy History of bilateral tubal ligation (~1996) History of cholecystectomy History of endometrial ablation (~2009) History of right knee surgery History of tonsillectomy History of ureter stent Social History Smoking Status: Current some day smoker tobacco type: cigarettes alcohol intake: never substance use type: marijuana ROS ROS ED Constitutional Constitutional ED: Reports systems reviewed and no addt'l complaints, except as documented; Denies body ache(s), change in weight or chills Eyes Eyes: Denies acute decrease in peripheral vision, change in vision, double vision or loss of vision ENT ENT ED: Reports none; Denies ear pain, lip swelling, loss taste/smell, neck pain, otalgia or sore throat Cardiovascular Cardiovascular: Reports none; Denies abdominal pain, chest pain with activity, leg edema, lightheadedness, palpitations, rapid heart rate or syncope Respiratory/Chest Respiratory/Chest: Reports none; Denies change in mental status, dry cough, dyspnea, hemoptysis, shortness of breath at rest or shortness of breath with exertion Gastrointestinal Gastrointestinal: Reports none, abdominal pain and nausea; Denies change in stool character, diarrhea, hematemesis, hematochezia, melena, rectal bleeding or vomiting Genitourinary Genitourinary ED: Reports none; Denies abdominal discomfort, anuria, dysuria, genital pain or polyuria Musculoskeletal Musculoskeletal: Reports none; Denies arthralgias, back pain, difficulty walking, extremity pain, muscle weakness or myalgias Integumentary Reports none; Denies abscess or rash Neurologic Neurologic: Reports none; Denies abnormal gait, confusion, focal weakness, frequent falls, headache(s), loss of vision, numbness, paresthesias, radicular pain, vertigo or weakness Psychiatric Psychiatric: Reports systems reviewed and no addt'l complaints, except as documented and none; Denies behavioral changes, confusion, difficulty concentrating, hallucinations, suicidal ideation, tactile hallucinations or visual hallucinations Endocrine Endocrinology: Denies none, cold intolerance, excessive sweating, fatigue or heat intolerance Hematologic/Lymphatic Hematologic/Lymphatic: Reports none; Denies anemia, easy bleeding or easy bruising Allergic/Immunologic Allergic/Immunologic ED: Denies as per HPI, none, lip swelling, mouth swelling, throat swelling, tongue swelling or hives EXAM Physical Exam Const Vital Signs: 05/03/21 18:44 Temperature 98.2 F Temperature Source Temporal Pulse Rate 92 Respiratory Rate 18 Blood Pressure 144/111 H Blood Pressure Mean 122 Pulse Ox 97 Oxygen Delivery Method Room Air Positive well nourished and well developed General Appearance ED: well developed and NAD HEENT Reports TM's clear and moist mucous membranes normocephalic and atraumatic; Negative for trauma or tenderness Tympanic Membrane ED: Yes TM's clear Eyes PERRL and EOMs intact bilaterally General Eye ED: Negative for pale conjunctiva or scleral icterus Neck no lymphadenopathy, supple and no JVD General: Negative for tenderness Chest Wall inspection of chest normal and palpation of chest normal Chest: Negative for tenderness Resp normal respiratory effort and clear to auscultation bilaterally Effort and Inspection: Negative for respiratory distress or pain with movement Auscultation: Negative for rhonchi, wheezes or diminished lung sounds Cardio regular rate, regular rhythm, S1 normal heart sound, S2 normal heart sound and no murmurs Peripheral Pulses: pulses 2+ throughout GI normal to inspection, nondistended, normoactive bowel sounds, soft to palpation, non-distended and no masses Palpation: tender epigastric and guarding Back/Spine no CVA tenderness and no thoracic nor lumbar tenderness Extremity normal to inspection General Extremety ED: Negative for edema General Extremity: Negative for edema Neuro oriented x3, CN's II-XII intact bilaterally, no sensory deficits noted and gait normal Sensorium / Orientation: awake, alert, oriented to person, oriented to place and oriented to time Motor Exam: strength 5/5 throughout and strength abnormal Psych mental status grossly normal Skin no rashes or lesions noted and no wounds MDM MDM MDM Narrative Medical decision making narrative: Patient had nebulized tablets on arrival. She is make it with Dilaudid and Zofran. She had to be given a second dose of Dilaudid and Zofran and had good pain relief for a time within the pain came back. Patient's work-up in department is unremarkable. Etiology of her abdominal pain is unclear. Patient will be started on Prevacid for 30 days and will be given referral to general surgeon on-call for follow-up as she may need further evaluation such as upper and lower scopes. Patient will be given a prescription for few OxyIR for pain. Patient advised to return if worsening pain, fever, vomiting, or condition should worsen anyway. Lab Data Attestation: I reviewed the patient's lab results. Labs: Laboratory Results - last 24 hr 05/03/21 05/03/21 05/03/21 19:01 19:01 19:01 WBC 9.1 RBC 4.76 Hgb 14.6 Hct 42.4 MCV 89.1 MCH 30.7 MCHC 34.4 RDW Std Deviation 39.3 RDW Coeff of Gladis 12.0 Plt Count 317 MPV 9.2 Immature Gran % (Auto) 0.300 Neut % (Auto) 59.9 Lymph % (Auto) 29.7 [place] % (Auto) 8.6 Eos % (Auto) 1.2 Baso % (Auto) 0.3 Absolute Neuts (auto) 5.4 Absolute Lymphs (auto) 2.69 Nucleated RBC % 0 Sodium 139 Potassium 3.6 Chloride 108 H Carbon Dioxide 23.0 Anion Gap 8 BUN 12 Creatinine 0.93 Estim Creat Clear Calc 69.46 Est GFR (MDRD) Af Amer 85 Est GFR (MDRD) Non-Af 70 BUN/Creatinine Ratio 13.0 Glucose 99 Lactic Acid Calcium 9.5 Total Bilirubin 0.60 AST 10 L ALT 15 Alkaline Phosphatase 128 H Total Protein 8.1 Albumin 4.2 Globulin 3.9 Albumin/Globulin Ratio 1.1 Lipase 96 Serum , Qual NEGATIVE Urine Color Urine Clarity Urine pH Ur Specific [place] Urine Protein Urine Glucose (UA) Urine Ketones Urine Occult Blood Urine Nitrite Urine Bilirubin Urine Urobilinogen Ur Leukocyte Esterase Urine RBC Urine WBC Ur Squamous Epith Cells Calcium Oxalate Crystal Urine Bacteria Urine Mucus 05/03/21 05/03/21 19:14 19:14 WBC RBC Hgb Hct MCV MCH MCHC RDW Std Deviation RDW Coeff of Gladis Plt Count MPV Immature Gran % (Auto) Neut % (Auto) Lymph % (Auto) [place] % (Auto) Eos % (Auto) Baso % (Auto) Absolute Neuts (auto) Absolute Lymphs (auto) Nucleated RBC % Sodium Potassium Chloride Carbon Dioxide Anion Gap BUN Creatinine Estim Creat Clear Calc Est GFR (MDRD) Af Amer Est GFR (MDRD) Non-Af BUN/Creatinine Ratio Glucose Lactic Acid 0.9 Calcium Total Bilirubin AST ALT Alkaline Phosphatase Total Protein Albumin Globulin Albumin/Globulin Ratio Lipase Serum , Qual Urine Color Yellow Urine Clarity Cloudy Urine pH 6.0 Ur Specific [place] 1.025 Urine Protein Negative Urine Glucose (UA) Normal Urine Ketones 15 H Urine Occult Blood 250 H Urine Nitrite Negative Urine Bilirubin Negative Urine Urobilinogen Normal Ur Leukocyte Esterase Negative Urine RBC 0-5 SEEN Urine WBC 0 SEEN Ur Squamous Epith Cells 0-5 SEEN Calcium Oxalate Crystal 2+ Urine Bacteria 2+ Urine Mucus 0 SEEN Radiography Diagnostic Testing: Radiology Impression Abdomen/Pelvis CT 05/03/21 18:59 IMPRESSION: Colonic diverticulosis. No acute intra-abdominal process. Electronically Signed: Anabelle Nobles MD at 22:09 EDT Tel , Service support , Discharge Plan Triage Chief Complaint: Abd Pain ED Provider: Mylene Kaur Dx/Rx/DC Orders Clinical Impression: Abdominal pain Instructions: ED Abdominal Pain Unkn Cause Fem Prescriptions: New oxycodone-acetaminophen [oxycodone-acetaminophen] 1 TABLET tablet 1 tab PO Q6H PRN PRN (Reason: Pain) 3 Days Qty: 12 RF: 0 lansoprazole [Prevacid] 30 mg capsule,delayed release(DR/EC) 30 mg PO DAILY Qty: 30 RF: 0 No Action fluticasone propionate 50 mcg/actuation spray,suspension 1 spray intranasal DAILY RF: 0 zolpidem 10 MG tablet 10 mg PO QHS PRN (Reason: Insomnia) RF: 0 alprazolam 1 MG tablet 1 mg PO TID PRN PRN (Reason: Anxiety) RF: 0 Zyrtec 10 mg Capsule 10 mg PO DAILY PRN (Reason: allergies) RF: 0 Primary Care Provider: Celine Villalobos Referrals: Celine Villalobos MD [Primary Care Provider] - Sahra Dumont MD [STAFF PHYSICIAN] - 3-5 Days Disposition Disposition: Home, Self Care
[2021-05-03 19:12] LABS: Absolute Lymphocyte Count 2.69 X10^3/uL (0.83-4.51); Absolute Neutrophil Count 5.4 X10^3/uL (2.0-7.7); Basophil# 0.03 X10^3/uL; Basophil% 0.3 % (0-1); Eosinophil# 0.11 X10^3/uL; Eosinophils% 1.2 % (0-5); Hematocrit 42.4 % (37-47); Hemoglobin 14.6 g/dL (12.0-15.0); Lymphocyte # 2.69 X10^3/ul (0.83-4.51); Lymphocyte % 29.7 % (19-41); Mean Corp Hgb Conc 34.4 g/dL (32-36); Mean Corpuscular Hgb 30.7 pg (27.0-32.0); Mean Corpuscular Volume 89.1 fL (81-99); Mean Platelet Vol. 9.2 fl (6.2-12.0); Monocyte# 0.78 X10^3/uL; Monocyte% 8.6 % (0-10); NRBC Flagged by Analyzer 0 % (0-5); Neutrophil # 5.42 X10^3/uL (2.7-7.7); Neutrophil % 59.9 % (47-70); Platelet Count 317 K/mm3 (150-450); RBC Distribution Width SD 39.3 fl (35.1-43.9); Red Blood Count 4.76 M/mm3 (4.2-5.4); White Blood Count 9.1 K/mm3 (4.4-11.0)
[2021-05-03] MEDS: 0.9% Normal Saline 1,000 ML 125 ML IV (19:15)
[2021-05-03] MEDS: Ondansetron 4 MG/2 ML Vial IV (19:15)
[2021-05-03] MEDS: HYDROmorphone 1 MG/ML Syringe IV ×2 (19:16→19:51)
[2021-05-03 19:22] LABS: Internal QC Validated? YES +Cl - CLEAR BKGD; Pregnancy, Serum, hCG Quali. NEGATIVE Negative
[2021-05-03 19:24] LABS: Mucous, Urine 0 SEEN /hpf (<or=2+); White Blood Cells 0 SEEN /hpf (0-5)
[2021-05-03 19:25] LABS: Color, Urine Yellow (Yellow); Glucose, Dipstick Normal (Normal); Ketone-Dipstick 15 mg/dl (Negative); Leukocyte Esterase-Dipstick Negative /ul (Negative); Nitrite-Dipstick Negative (Negative); Occult Blood-Urine 250 /ul (Negative); Protein-Dipstick Negative (Negative); Specific Gravity, Urine 1.025 (1.002-1.030); Urine Bilirubin Dipstick Negative (Negative); Urine Clarity Cloudy (Clear); Urine Urobilinogen Normal (Normal)
[2021-05-03 19:32] LABS: ALB/GLOB Ratio 1.1 RATIO (0.9-2.4); AST(SGOT) 10 U/L (15-37); Alanine Aminotransfer ALT/SGPT 15 U/L (13-56); Albumin, Serum 4.2 g/dL (3.2-5.0); Alkaline Phosphatase 128 U/L (45-117); Anion Gap 8 (5-15); BUN 12 mg/dL (7-18); Calcium,Total 9.5 mg/dL (8.5-10.1); Chloride 108 mmol/L (98-107); Creatinine, Serum 0.93 mg/dL (0.55-1.02); EST Glomerular Filtration Rate 70 mL/min (>60); Est Glom Filt Rate - Afr Amer 85 mL/min (>60); Estimated Creatinine Clearance 69.46 ml/min; Globulin 3.9 g/dL (2.2-4.2); Glucose 99 mg/dL (74-106); Lipase 96 U/L (73-393); Potassium 3.6 mmol/L (3.5-5.1); Protein, Total 8.1 g/dL (6.4-8.2); Sodium Level 139 mmol/L (136-145)
[2021-05-03 20:00] LABS: Red Blood Cells-Urine 0-5 SEEN /hpf (0-5); Squamous Epithelial Cells - UA 0-5 SEEN /hpf (5-10)
[2021-05-03 20:01] LABS: Bacteria 2+ /hpf (None Seen); Calcium Oxalate Crystals Ur 2+ /hpf (<or=2+)
[2021-05-03 20:07] LABS: Lactic Acid 0.9 mmol/L (0.4-1.9)
[2021-05-03 23:01] VITALS: BP 129/75; PULSE 82; RESP 12; O2SAT 98
== END 2021-05-03 23:02 | disposition home or self-care (01) ==
PROVIDERS: Emergency Provider Emergency Medicine; PCP Family Medicine
DX: R10.13 Epigastric pain (principal); F41.9 Anxiety disorder, unspecified; I34.1 Nonrheumatic mitral (valve) prolapse; M19.90 Unspecified osteoarthritis, unspecified site; G89.29 Other chronic pain; Z86.2 Personal history of diseases of the blood and blood-forming organs and certain disorders involving the immune mechanism; Z87.442 Personal history of urinary calculi; Z90.49 Acquired absence of other specified parts of digestive tract; Z79.899 Other long term (current) drug therapy; F17.210 Nicotine dependence, cigarettes, uncomplicated
CPT/HCPCS: 74177; 80053; 81001; 83605; 83690; 84703; 85025; 96361; 96374; 96375; 99282; J7030; Q9967; A4216; J2405

== ENCOUNTER 2021-05-18 06:28 | Day surgery (SDC) | payer MEDICAID, SELFPAY ==
[2021-05-11 14:37] VITALS: BMI 25.9
[2021-05-18] MEDS: Lactated Ringers 1,000 ML 100 ML IV (06:40)
[2021-05-18 06:52] VITALS: BP 129/81; PULSE 82; RESP 16; TEMP 36.5; O2SAT 96; BMI 27.4
--- NOTE | 2021-05-18 07:17 | HP.PCM_ITS ---
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 Is patient in pain?: Yes (mid upper abdomen) Allergies docosahexanoic acid [From [facility]] Allergy (Verified 05/11/21 14:36) Hives gabapentin Allergy (Verified 05/11/21 14:36) Other iron amino acid chelate [From [facility]] Allergy (Verified 05/11/21 14:36) Hives methyltetrahydrofolate gluc.,folic [From [facility]] Allergy (Verified 05/11/21 14:36) Hives vitamins combination no.39 [From [facility]] Allergy (Verified 05/11/21 14:36) Hives topiramate [From Topamax] Adverse Reaction (Severe, Verified 05/11/21 14:36) Other hydrocodone Adverse Reaction (Verified 05/11/21 14:36) Itching morphine Adverse Reaction (Verified 05/11/21 14:36) Vomiting Medications zolpidem 10 mg PO QHS PRN 02/25/16 [History Confirmed 05/11/21] alprazolam 1 mg PO TID PRN PRN 08/20/16 [History Confirmed 05/11/21] cetirizine [Zyrtec] 10 mg PO DAILY PRN 03/14/21 [History Confirmed 05/11/21] fluticasone propionate 50 mcg/actuation nasal spray,suspension 1 spray INTRANASAL DAILY g 04/05/21 [History Confirmed 05/11/21] oxycodone-acetaminophen 1 tab PO Q6H PRN PRN 3 Days #12 tablet 05/03/21 [Rx Confirmed 05/11/21] PFSH Medical History Anemia Anxiety Arthritis Back pain Chronic neck and back pain Insomnia Intermittent explosive disorder Knee pain Left ureteral calculus Limb weakness Medial epicondylitis of right elbow Mitral valve prolapse Shoulder pain MERNA (stress urinary incontinence, female) Surgical History H/O LEEP History of appendectomy History of benign breast biopsy History of bilateral tubal ligation (~1996) History of cholecystectomy History of endometrial ablation (~2009) History of right knee surgery History of tonsillectomy History of ureter stent Family History Mother Anxiety Brother Alcoholism Father Myocardial infarction, Onset Age: 60 Social History Smoking Status: Current some day smoker tobacco type: cigarettes alcohol intake: never substance use type: marijuana HPI HPI HPI: GARRY NELSON, is a 46 F who presents to the office today for epigastric pain which she states she has had for about a month?describes as a knot. Patient states it can range from a 7/10 up to 15 with [address] eating[address] Patient st ates water can even cause increased discomfort. Patient does have nausea denies any vomiting. However today she was able to eat a fish sandwich without increasing the amount of pain. Patient does state that since her second Covid shot she had 2 months of vomiting which has resolved. Patient around that time was also stung by 12 bees. Patient denies ever having EGD. Patient states she will have normal bowel movements followed by diarrhea about half and half. Patient did go the ER CT abdomen pelvis was done not show anything obvious/acute. Patient has had a cholecystectomy as well as an appendectomy. Patient was given Prevacid by the ER, patient patient about a week ago and has been on it for about a week unsure if there is any change. ROS General General: Yes weight change and fatigue; No appetite, colon cancer, breast cancer or weakness HEENT HEENT: No difficulty swallowing, eye injury, eye surgery, swollen glands or hoarseness Endo Endocrine: No thyroid disease, diabetes mellitus, thyroid cancer, Hair loss, heat intolerance or cold intolerance Skin Skin: Yes changing moles; No rash Breast Breast: No left breast lump, right breast lump, nipple discharge, breast pain, abnormal mammogram, abnormal US or breast enlargement Musc Musculoskeletal: Yes back problems; No arthritis, rheumatoid arthritis, gout or joint pain Cardio Cardiovascular: No murmur, pacemaker, heart disease, atrial fibrillation, high blood pressure, heart attack, heart stent, palpitations, shortness of breat with exertion or chest pain Psych Psychiatric: No depression, anxiety or hearing voices Resp Respiratory: No shortness of breath, No sleep apnea, No cough, No COPD, No asthma, No emphysema and No wheezing Gastro Gastrointestinal: Yes abdominal pain, Yes nausea or vomiting, Yes diarrhea, No c onstipation, No blood in stool, No acid reflux, No hemorrhoids, No ulcers, No gallbladder problem and No black,tarry stools Toni Hematologic: No blood thinners, No blood disorders, No bleeding, No anemia and No blood clots Neuro Neurologic: No system reviewed and no additional complaints, except as documented, No as per HPI, No abnormal gait, No abnormal hearing, No abnormal movements, No abnormal speech, No behavioral changes, No burning sensations, No confusion, No convulsions, No disequilibrium, No dizziness, No localized weakness, No frequent falls, No headache(s), No lack of coordination, No loss of vision, No memory loss, Yes numbness, No other visual disturbances, No radicular pain, No restless legs, No sensory deficit, No syncope, Yes tingling, No tremor(s), No weakness and No other Exam Const General: cooperative, healthy appearing, comfortable and no acute distress Neck Neck: normal visual inspection Resp Effort & Inspection: normal respiratory effort Cardio Rate: regular rate GI Inspection: non-distended Palpation: soft, no guarding and tender (epigastric) with no rebound tenderness Skin General: no rashes or lesions noted Neuro General: patient oriented x3 Psych Affect: normal affect COVID (Procedure Consent) Procedure Criteria Procedure Criteria: Yes Elective The surgeon/proceduralist and patient have discussed in detail the risk of exposure to and/or potential harm posed by the COVID-19 virus with having a surgery/procedure at this time versus the risk of delaying the surgery/procedure. It is not possible to know either the risk of delaying the surgery or procedure or chance of getting an infection with perfect accuracy, but a joint decision was made between the patient and the surgeon/proceduralist to proceed at this time with the scheduled surgery/pr ocedure as indicated on the consent form. Assessment and Plan Assessment and Plan (1) Epigastric abdominal pain: Status: Acute Plan - Dr. Sahra Dumont MD: Will have patient continue the Prevacid from the ER. I have discussed the above with the patient. I have offered the patient EGD for evaluation. I have explained the risks/benefits of the procedure and described the procedure. I have discussed the risks with the patient, including but not limited to: infection, bleeding, perforation of the GI tract requiring emergency surgery, inability to complete the procedure, injury to any internal organs, complications of anesthesia, etc. - the patient understands and agrees to proceed. I have answered all the patient's questions to the patient's satisfaction and the patient has no further questions. Sahra Dumont M.D. Pager: [phone] [facility] [address] [place] [address], [address] [place] [address] Office: [phone] Plan Details Other Orders: Orders: EGD Today Coding Level of Care Code Off vis,new,level 3 Diagnoses Epigastric abdominal pain R10.13 05/12/21 1248<Electronically signed by Sahra Dumont MD>Date Sahra Dumont MD
--- NOTE | 2021-05-18 07:30 | IMM_PTH ---
PATIENT: GARRY NELSON LOC: EN U#:[id number] AGE/SX: 46/F ROOM: RE05/18/[address]: Dr. Sahra Dumont MD : 1975 BED: DIS: 05/18/2021 SPEC #: [id number] RECD: 05/18/21 13:15 STATUS: NEISHA REGoran #: [id number] FUNMI: 05/18/21 07:[address]: Sahra Dumont DEPT: IMMUNOHISTOCHEMISTRY RECD BY: Unique Cisneros ENTERED: 05/18/21 13:15 SP TYPE: IMMUNO OTHR DR: Dr. Celine Villalobos MD Tissues: Stomach, NOS Procedures: H Pylori (initial) PHYSICIAN & INSTITUTION [place] [id number] SPECIMEN INFORMATION: Tissue Source: A ? Antrum biopsy Clinical Info: Epigastric abdominal pain Specimen Number: [id number] CPT code: 19758 METHODOLOGY: Deparaffinized sections of prefer/formalin-fixed tissue or PAP/DQ stained slides are incubated with monoclonal/polyclonal antibodies/oligonucleotide probes. Localization is made via biotin free immunoperoxidase method. Appropriate controls are performed and reacted as expected. Results on target cell population are indicated in the following table: RESULTS: ANTIBODY / CLONE RESULT Block A H Pylori (polyclonal) negative These tests were developed and their performance characteristics determined by [facility]. They may not have been cleared or approved by the U.S. Food and Drug Administration. The FDA has determined that such clearance or approval is not necessary. INTERPRETATION: A. Antrum biopsy: Negative for Helicobacter pylori organisms. SJ:milena 05/19/2021
--- NOTE | 2021-05-18 07:30 | EGD_PTH ---
PATIENT: GARRY NELSON LOC: EN U#:[id number] AGE/SX: 46/F ROOM: RE05/18/[address]: Dr. Sahra Dumont MD : 1975 BED: DIS: 05/18/2021 SPEC #: [id number] RECD: 05/18/21 08:43 STATUS: NEISHA REQ #: [id number] FUNMI: 05/18/21 07:[address]: Sahra Dumont DEPT: SURGICAL PATHOLOGY RECD BY: Anuradha Honeycutt ENTERED: 05/18/21 10:43 SP TYPE: EGD BIOPSY OT DR: Dr. Celine Villalobos MD Tissues: A - Gastric mucous membrane B - Gastric mucous membrane Procedures: Special Stain Group II Surgery Specimen Level IV Alcian Blue/PAS (control) HEADER OPERATION: EGD ([facility] [place]) PRE-OP DIAGNOSIS: Epigastric abdominal pain TISSUE SUBMITTED: A ? Antrum biopsy, H. pylori, path, B ? GE junction biopsy MICROSCOPIC DIAGNOSIS A. Antrum, biopsy: Mild gastritis. See microscopic description and comment. B. GE junction, biopsy: A fragment of gastroesophageal mucosa with mild chronic inflammation. Intestinal metaplasia (goblet cell metaplasia) not identified. See comment. SJ:rg 05/19/2021 COMMENT A. The results of immunohistochemistry for Helicobacter pylori will be reported separately ([id number]). B. Alcian blue/PAS stain with matched control is used in the evaluation of the specimen. MICROSCOPIC DESCRIPTION Slides are reviewed. A. The specimen shows fragments of gastric mucosa with chronic inflammatory cell infiltrates in the lamina propria consisting of lymphocytes and plasma cells, consistent with mild chronic gastritis. GROSS DESCRIPTION A - Received in fixative is one container labeled with the patient's name and designated antrum biopsy. The specimen consists of one irregular fragment of light faust soft tissue that measures 0.6 x 0.2 x 0.1 cm. The specimen is totally submitted in one cassette. B - Received in fixative is one container labeled with the patient's name and designated GE junction biopsy. The specimen consists of one irregular fragment of light faust soft tissue that measures 0.2 x 0.2 x 0.1 cm. The specimen is totally submitted in one cassette. / HERMILA:milena 05/18/21 TC:3 CPT: 42086 x2, 66486
[2021-05-18 07:41] VITALS: BP 123/81; BP 129/81; PULSE 87; RESP 16; TEMP 36.2; O2SAT 99
[2021-05-18 07:45] VITALS: BP 128/82; BP 129/81; PULSE 77; RESP 16; O2SAT 99
[2021-05-18 07:50] VITALS: BP 125/82; BP 129/81; PULSE 87; RESP 16; O2SAT 98
[2021-05-18 07:55] VITALS: BP 129/81; BP 143/90; PULSE 78; RESP 16; TEMP 36; O2SAT 99
[2021-05-18 08:12] VITALS: BP 129/81
--- NOTE | 2021-05-18 10:18 | OP.EGD_ITS ---
Patient Name: Radha Orellana Procedure Date: 05/18/2021 7:17 AM Date of : 1975 Age: 46 Procedure: Upper GI endoscopy Indications: Epigastric abdominal pain Providers: Sahra Dumont MD Referring MD: Celine Villalobos Medicines: Monitored Anesthesia Care Patient Profile: This is a 46 year old female. Complications: No immediate complications. Procedure: Pre-Anesthesia Assessment: - Prior to the procedure, a History and Physical was performed, and patient medications and allergies were reviewed. The patient's tolerance of previous anesthesia was also reviewed. The risks and benefits of the procedure and the sedation options and risks were discussed with the patient. All questions were answered, and informed consent was obtained. Prior Anticoagulants: The patient has taken no previous anticoagulant or antiplatelet agents. ASA Grade Assessment: Per anesthesia. After reviewing the risks and benefits, the patient was deemed in satisfactory condition to undergo the procedure. After obtaining informed consent, the endoscope was passed under direct vision. Throughout the procedure, the patient's blood pressure, pulse, and oxygen saturations were monitored continuously. The gastroscope was introduced through the mouth, and advanced to the second part of duodenum. The patient tolerated the procedure well. The upper GI endoscopy was somewhat difficult due to presence of food. Scope In: 7:31:09 AM Scope Out: 7:36:44 AM Total Procedure Duration Time 0 hours 5 minutes 35 seconds Findings: The Z-line was irregular and was found 40 cm from the incisors. Biopsies were taken with a cold forceps for histology. Moderately erythematous mucosa without bleeding was found in the prepyloric region of the stomach. Biopsies were taken with a cold forceps for histology. Biopsies were taken with a cold forceps for Helicobacter pylori cultures. A large amount of food (residue) was found in the gastric body. Unable to retroflex due to retained food The examined duodenum was normal. Impression: - Z-line irregular, 40 cm from the incisors. Biopsied. - Erythematous mucosa in the prepyloric region of the stomach. Biopsied. - A large amount of food (residue) in the stomach. - Normal examined duodenum. Recommendation: - Await pathology results. - Discharge patient to home. - Soft food/liquids due to retained food--depending on when you last ate before scope. - Do a gastric emptying study depending on when you last ate before the scope.....to be scheduled if needed. - Continue present medications. Procedure Code(s): --- Professional --- 72002, Esophagogastroduodenoscopy, flexible, transoral; with biopsy, single or multiple Diagnosis Code(s): --- Professional --- K22.8, Other specified diseases of esophagus K31.89, Other diseases of stomach and duodenum R10.13, Epigastric pain CPT copyright 2017 [employer]. All rights reserved. The codes documented in this report are preliminary and upon merchandising coordinator review may be revised to meet current compliance requirements. MD Sahra Hart MD 05/18/2021 7:48:51 AM This report has been signed electronically. Number of Addenda: 0 Note Initiated On: 05/18/2021 7:17 AM
--- NOTE | 2021-05-18 10:18 | OP.CCLET_ITS ---
05/18/2021 Celine Villalobos [place] [id number] [facility] [address] [address] Re : Upper GI endoscopy procedure for Radah Orellana Dear Dr. Villalobos This procedure was performed on Sunday, May 18, 2021. My impressions and recommendations are as follows: Impressions : - Z-line irregular, 40 cm from the incisors. Biopsied. - Erythematous mucosa in the prepyloric region of the stomach. Biopsied. - A large amount of food (residue) in the stomach. - Normal examined duodenum. Recommendations : - Await pathology results. - Discharge patient to home. - Soft food/liquids due to retained food--depending on when you last ate before scope. - Do a gastric emptying study depending on when you last ate before the scope.....to be scheduled if needed. - Continue present medications. My findings are described in the full procedure note, which is enclosed. If I can be of further assistance, please feel free to contact me at Doctor phone number(s): , Work: . Sincerely, MD Sahra Hart MD 05/18/2021 7:48:51 AM This report has been signed electronically.
== END 2021-05-18 08:14 ==
LOC: EN 06:28 → AC 06:29
PROVIDERS: PCP Family Medicine; Referring Provider Family Medicine; Visit Provider Surgery
PROC: 0DJ08ZZ Inspection of Upper Intestinal Tract, Via Natural or Artificial Opening Endoscopic (ICD-10-PCS; CPT 43235; principal; 2021-05-18 07:25)
DX: K29.70 Gastritis, unspecified, without bleeding (principal); G89.29 Other chronic pain; G25.81 Restless legs syndrome; M19.90 Unspecified osteoarthritis, unspecified site; Z86.2 Personal history of diseases of the blood and blood-forming organs and certain disorders involving the immune mechanism; Z90.49 Acquired absence of other specified parts of digestive tract; Z79.899 Other long term (current) drug therapy; F17.210 Nicotine dependence, cigarettes, uncomplicated
CPT/HCPCS: 43239; 88305; 88313; 88342; J7120; J2405

== ENCOUNTER 2021-08-05 16:10 | Emergency (ER) | payer MEDICAID, SELFPAY ==
[2021-08-05 16:10] VITALS: BP 140/87; PULSE 73; RESP 18; TEMP 36.2; O2SAT 97; BMI 26.6
--- NOTE | 2021-08-05 17:01 | ED.VIS.BACK ---
HPI History of Present Illness Chief Complaint: Other, Pain/Inj Detail of Chief Complaint: Right upper back and posterior shoulder discomfort Informant: patient Onset/Context/Timing Onset: Days Context: Gradual Onset Injury: lifting Timing: Continuous Quality: Dull and Aching Location: Thoracic Current Severity: Mild Maximum Severity: Mild Worsened by: improves with Movement and Lifting Relieved by: Nothing Associated Symptoms Associated Symptoms: Negative for Numbness, Tingling, Radiation to Right Leg, Radiation to Left Leg, Fever, Abdominal Pain, Dysuria, Unable to Ambulate, Unable to Transfer, Urinary Retention, Urinary Incontinence, Constipation and Fecal Incontinence Narrative Narrative: 46-year-old female complaining of right lateral neck posterior shoulder discomfort. Says it feels like a stiffness. She denies any significant injury. She has been carrying some boxes. Is worse with movement. She denies any numbness or weakness or tingling to her right hand. She is never had neck or back surgery. She does have a history of degenerative disc disease. Prior similar symptoms: No Recent Illness/Hospitalization: No PFSH PFSH Medical History Alcohol use Anemia Anxiety Arthritis Back pain Cancer Cardiology follow-up encounter Chest pain Chronic neck and back pain Former smoker History of echocardiogram History of IBS History of pain when walking Insomnia Intermittent explosive disorder Knee pain Left ureteral calculus Limb weakness Marijuana use Medial epicondylitis of right elbow Migraine headache Mitral valve prolapse Restless legs Shoulder pain MERNA (stress urinary incontinence, female) Wears glasses Home Medications zolpidem 10 mg PO QHS PRN 02/25/16 [History Last Taken 01/17/18 5 MG] alprazolam 1 mg PO TID PRN PRN 08/20/16 [History Last Taken 01/18/18 0.5 MG] cetirizine [Zyrtec] 10 mg PO DAILY 03/14/21 [History Last Taken Unknown] fluticasone propionate 50 mcg/actuation nasal spray,suspension 1 spray INTRANASAL DAILY g 04/05/21 [History Last Taken Unknown] omeprazole [Prilosec] 20 mg PO DAILY 05/17/21 [History Last Taken Unknown] metaxalone [Skelaxin] 800 mg PO TID 7 Days #21 tab 08/05/21 [Rx Last Taken Unknown] Allergy/AdvReac Type Severity Reaction Status Date / Time docosahexanoic acid Allergy Hives Verified 08/05/21 16:12 [From [facility]] gabapentin Allergy Other Verified 08/05/21 16:12 iron amino acid chelate Allergy Hives Verified 08/05/21 16:12 [From [facility]] methyltetrahydrofolate Allergy Hives Verified 08/05/21 16:12 gluc.,folic [From [facility]] vitamins Allergy Hives Verified 08/05/21 16:12 combination no.39 [From [facility]] topiramate [From Topamax] AdvReac Severe Other Verified 08/05/21 16:12 hydrocodone AdvReac Itching Verified 08/05/21 16:12 morphine AdvReac Vomiting Verified 08/05/21 16:12 Family History Mother Anxiety Brother Alcoholism Father Myocardial infarction, Onset Age: 60 Surgical History H/O LEEP History of appendectomy History of benign breast biopsy History of bilateral tubal ligation (~1996) History of cholecystectomy History of endometrial ablation (~2009) History of right knee surgery History of tonsillectomy History of ureter stent Social History Smoking Status: Current some day smoker tobacco type: cigarettes alcohol intake: never substance use type: marijuana ROS ROS ED ROS Narrative Denies recent illness. Review of Systems ROS Unobtainable: Denies due to encephalopathy Constitutional Constitutional ED: Denies fever(s) Eyes Eyes: Denies change in vision ENT ENT ED: Denies ear pain Cardiovascular Cardiovascular: Denies chest pain Respiratory/Chest Respiratory/Chest: Denies dyspnea Gastrointestinal Gastrointestinal: Denies abdominal pain Genitourinary Genitourinary ED: Denies dysuria Musculoskeletal Musculoskeletal: Reports back pain and neck pain; Denies myalgias Integumentary Denies rash Neurologic Neurologic: Denies headache(s) Psychiatric Psychiatric: Denies depression Endocrine Endocrinology: Denies polyuria Hematologic/Lymphatic Hematologic/Lymphatic: Denies easy bruising Allergic/Immunologic Allergic/Immunologic ED: Denies urticaria EXAM Physical Exam Narrative Exam Narrative: Middle-aged woman no acute distress vital signs stable afebrile. HEENT exam unremarkable. Lungs clear. Heart regular rate and rhythm no murmur. Abdomen soft nontender. Moving all 4 extremities. Neurovascular intact. Back tenderness to the right lateral neck and trapezius section of her upper back and shoulder consistent with myofascial stretch strain and spasm. No redness or warmth. Spine nontender. Const Vital Signs: 08/05/21 16:10 Temperature 97.1 F L Temperature Source Temporal Pulse Rate 73 Respiratory Rate 18 Blood Pressure 140/87 H Blood Pressure Mean 104 Pulse Ox 97 Positive well nourished and well developed; Negative for obese, cachectic, contractures or unkempt General Appearance ED: well developed and NAD; Negative for unkempt, cachectic, contractures or pallor Nutritional Appearance: Negative for cachectic or obese HEENT Reports moist mucous membranes Negative for trauma or tenderness Eyes PERRL and EOMs intact bilaterally Neck no lymphadenopathy, supple and no JVD General: Negative for tenderness Resp normal respiratory effort and clear to auscultation bilaterally Auscultation: Negative for rhonchi, wheezes or diminished lung sounds Cardio regular rate, regular rhythm, S1 normal heart sound, S2 normal heart sound and no murmurs GI normal to inspection, nondistended, normoactive bowel sounds, soft to palpation, non-tender, non-distended and no masses Inspection: Negative for abdominal distention Palpation: Negative for tender, guarding or rebound tenderness present Back/Spine no thoracic nor lumbar tenderness General Back: Negative for CVA tenderness Cervical Spine: Negative for cervical spine tenderness and paracervical muscle tenderness Thoracic Spine / Upper Back: paraspinal muscle tenderness Extremity normal to inspection General Extremety ED: Negative for edema or tenderness General Extremity: Negative for edema Psych mental status grossly normal Appearance: Negative for unkempt Skin no rashes or lesions noted and no wounds General Skin Exam: Negative for jaundice or pallor Rashes: No rashes noted MDM MDM MDM Narrative Medical decision making narrative: 46-year-old female with right upper posterior shoulder and paracervical neck soft tissue tenderness consistent with myofascial strain and spasm. We discussed treatment options to be placed on Skelaxin for a week. Ibuprofen and heat. Discharge Plan Triage Chief Complaint: Other, Pain/Inj ED Provider: Mack Booth Dx/Rx/DC Orders Clinical Impression: Muscle spasm Instructions: ED Back Spasm, No Trauma Prescriptions: New metaxalone [Skelaxin] 800 mg tablet 800 mg PO TID 7 Days Qty: 21 RF: 0 No Action fluticasone propionate 50 mcg/actuation spray,suspension 1 spray intranasal DAILY RF: 0 zolpidem 10 MG tablet 10 mg PO QHS PRN (Reason: Insomnia) RF: 0 alprazolam 1 MG tablet 1 mg PO TID PRN PRN (Reason: Anxiety) RF: 0 Zyrtec 10 mg Capsule 10 mg PO DAILY RF: 0 omeprazole [Prilosec] 20 mg Capsule,Delayed Release(Dr/Ec) 20 mg PO DAILY RF: 0 Primary Care Provider: Celine Villalobos Referrals: Celine Villalobos MD [Primary Care Provider] - 1 Week if not improving Activity Restrictions/Additional Instructions: Hot shower, warm bath, massage and Motrin. Skelaxin relax the muscle. 1 pill 3 times a day. For the next several days it will start feeling better. Follow-up if not improving. Disposition Disposition: Home, Self Care
[2021-08-05 17:09] VITALS: BP 132/62; PULSE 88; RESP 16; TEMP 37; O2SAT 98
== END 2021-08-05 17:10 | disposition home or self-care (01) ==
LOC: ED 17:01
PROVIDERS: Emergency Provider Emergency Medicine; PCP Family Medicine
DX: M62.838 Other muscle spasm (principal); M54.2 Cervicalgia; F41.9 Anxiety disorder, unspecified; M19.90 Unspecified osteoarthritis, unspecified site; G89.29 Other chronic pain; K58.9 Irritable bowel syndrome, unspecified; G25.81 Restless legs syndrome; I34.1 Nonrheumatic mitral (valve) prolapse; Z87.442 Personal history of urinary calculi; Z79.899 Other long term (current) drug therapy; F12.90 Cannabis use, unspecified, uncomplicated; F17.210 Nicotine dependence, cigarettes, uncomplicated
CPT/HCPCS: 99282

== ENCOUNTER 2021-12-04 11:29 | Emergency (ER) | payer MEDICAID, SELFPAY ==
[2021-12-04 11:33] VITALS: BP 129/88; PULSE 111; RESP 17; TEMP 35.9; O2SAT 98; BMI 28.7
--- NOTE | 2021-12-04 11:51 | EDS_ITS ---
HPI History of Present Illness Chief Complaint: Dizziness Detail of Chief Complaint: Dizziness, nausea vomiting, ringing in ears, and flank pain Informant: patient Narrative Narrative: Patient presents to the emergency department with multiple complaints today. Patient states that she has had ringing in her ears for many months. She has had a feeling of off balance for the last 5 days. She had nausea and vomiting which stopped 2 days ago. Patient also complaining of some flank pain and feels like she may have a urinary tract infection. Patient had history of kidney stones and she is not sure if she might have a kidney stone or a just a UTI. Patient states that she is had a bladder sling and always has some dysuria. She had low-grade fevers at home up to 99. Prior similar symptoms: Yes PFSH PFSH Medical History Alcohol use Anemia Anxiety Arthritis Back pain Cancer Cardiology follow-up encounter Chest pain Chronic neck and back pain Former smoker History of echocardiogram History of IBS History of pain when walking Insomnia Intermittent explosive disorder Knee pain Left ureteral calculus Limb weakness Marijuana use Medial epicondylitis of right elbow Migraine headache Mitral valve prolapse Restless legs Shoulder pain MERNA (stress urinary incontinence, female) Wears glasses Home Medications zolpidem 10 mg PO QHS PRN 02/25/16 [History Last Taken 01/17/18 5 MG] alprazolam 1 mg PO TID PRN PRN 08/20/16 [History Last Taken 01/18/18 0.5 MG] cetirizine [Zyrtec] 10 mg PO DAILY 03/14/21 [History Last Taken Unknown] fluticasone propionate 50 mcg/actuation nasal spray,suspension 1 spray INTRANASAL DAILY g 04/05/21 [History Last Taken Unknown] omeprazole [Prilosec] 20 mg PO DAILY 05/17/21 [History Last Taken Unknown] metaxalone [Skelaxin] 800 mg PO TID 7 Days #21 tab 08/05/21 [Rx Last Taken Unknown] hydrocodone-acetaminophen 1 tab PO Q4H PRN PRN 2 Days #10 tablet 12/04/21 [Rx Last Taken Unknown] meclizine 25 mg PO TID PRN #20 tab 12/04/21 [Rx Last Taken Unknown] ondansetron 4 mg PO Q8H PRN PRN #10 tab 12/04/21 [Rx Last Taken Unknown] Allergy/AdvReac Type Severity Reaction Status Date / Time docosahexanoic acid Allergy Hives Verified 12/04/21 11:32 [From [facility]] gabapentin Allergy Other Verified 12/04/21 11:32 iron amino acid chelate Allergy Hives Verified 12/04/21 11:32 [From [facility]] methyltetrahydrofolate Allergy Hives Verified 12/04/21 11:32 gluc.,folic [From [facility]] vitamins Allergy Hives Verified 12/04/21 11:32 combination no.39 [From [facility]] topiramate [From Topamax] AdvReac Severe Other Verified 12/04/21 11:32 hydrocodone AdvReac Itching Verified 12/04/21 11:32 morphine AdvReac Vomiting Verified 12/04/21 11:32 Family History Mother Anxiety Brother Alcoholism Father Myocardial infarction, Onset Age: 60 Surgical History H/O LEEP History of appendectomy History of benign breast biopsy History of bilateral tubal ligation (~1996) History of cholecystectomy History of endometrial ablation (~2009) History of right knee surgery History of tonsillectomy History of ureter stent Social History Smoking Status: Current some day smoker tobacco type: cigarettes alcohol intake: never substance use type: marijuana ROS ROS ED Constitutional Constitutional ED: Reports systems reviewed and no addt'l complaints, except as documented; Denies body ache(s), change in weight or chills Eyes Eyes: Denies acute decrease in peripheral vision, change in vision, double vision or loss of vision ENT ENT ED: Reports none and other Details: Tinnitus ; Denies ear pain, lip swelling, loss taste/smell, neck pain, otalgia or sore throat Cardiovascular Cardiovascular: Reports none; Denies abdominal pain, chest pain with activity, leg edema, lightheadedness, palpitations, rapid heart rate or syncope Respiratory/Chest Respiratory/Chest: Reports none; Denies change in mental status, dry cough, dyspnea, hemoptysis, shortness of breath at rest or shortness of breath with exertion Gastrointestinal Gastrointestinal: Reports none, nausea and vomiting; Denies abdominal pain, change in stool character, diarrhea, hematemesis, hematochezia, melena or rectal bleeding Genitourinary Genitourinary ED: Reports none and dysuria; Denies abdominal discomfort, anuria, genital pain or polyuria Musculoskeletal Musculoskeletal: Reports none; Denies arthralgias, back pain, difficulty walking, extremity pain, muscle weakness or myalgias Integumentary Reports none; Denies abscess or rash Neurologic Neurologic: Reports none and other Details: Dizziness ; Denies abnormal gait, confusion, focal weakness, frequent falls, headache(s), loss of vision, numbness, paresthesias, radicular pain, vertigo or weakness Psychiatric Psychiatric: Reports systems reviewed and no addt'l complaints, except as documented and none; Denies behavioral changes, confusion, difficulty concentrating, hallucinations, suicidal ideation, tactile hallucinations or visual hallucinations Endocrine Endocrinology: Denies none, cold intolerance, excessive sweating, fatigue or heat intolerance Hematologic/Lymphatic Hematologic/Lymphatic: Reports none; Denies anemia, easy bleeding or easy bruising Allergic/Immunologic Allergic/Immunologic ED: Denies as per HPI, none, lip swelling, mouth swelling, throat swelling, tongue swelling or hives EXAM Physical Exam Const Vital Signs: 12/04/21 11:33 12/04/21 12:11 12/04/21 12:41 Temperature 96.6 F L Temperature Source Temporal Pulse Rate 111 H Pulse Rate [Lying] 98 Pulse Rate [Sitting] 92 Pulse Rate [Standing] 102 H Respiratory Rate 17 Respiratory Effort Normal Non-Labored Respiratory Pattern Normal Blood Pressure 129/88 H Blood Pressure [Lying] 89/43 L Blood Pressure [Sitting] 120/78 Blood Pressure [Standing] 120/78 Blood Pressure Mean 101 Blood Pressure Mean [Lying] 58 Blood Pressure Mean [Sitting] 92 Blood Pressure Mean [Standing] 92 Pulse Ox 98 Oxygen Delivery Method Room Air Positive well nourished and well developed General Appearance ED: well developed and NAD HEENT Reports TM's clear and moist mucous membranes normocephalic and atraumatic; Negative for trauma or tenderness Tympanic Membrane ED: Yes TM's clear Eyes PERRL and EOMs intact bilaterally General Eye ED: Negative for pale conjunctiva or scleral icterus Neck no lymphadenopathy, supple and no JVD General: Negative for tenderness Chest Wall inspection of chest normal and palpation of chest normal Chest: Negative for tenderness Resp normal respiratory effort and clear to auscultation bilaterally Effort and Inspection: Negative for respiratory distress or pain with movement Auscultation: Negative for rhonchi, wheezes or diminished lung sounds Cardio regular rate, regular rhythm, S1 normal heart sound, S2 normal heart sound and no murmurs Peripheral Pulses: pulses 2+ throughout GI normal to inspection, nondistended, normoactive bowel sounds, soft to palpation, non-tender, non-distended and no masses Back/Spine no thoracic nor lumbar tenderness Back/Spine Narrative: CVA tenderness on the right. Extremity normal to inspection General Extremety ED: Negative for edema General Extremity: Negative for edema Neuro oriented x3, CN's II-XII intact bilaterally, no sensory deficits noted and gait normal Neuro Narrative: Negative Hallpike maneuver. No nystagmus elicited. Sensorium / Orientation: awake, alert, oriented to person, oriented to place and oriented to time Motor Exam: strength 5/5 throughout and strength abnormal Psych mental status grossly normal Skin no rashes or lesions noted and no wounds MDM MDM MDM Narrative Medical decision making narrative: IV line established on arrival. Lab work-up was unremarkable. Urinalysis had some blood in it therefore was concerned about possibility of kidney stone and CT scan of the abdomen pelvis without contrast obtained showed no evidence of kidney stones or anything acute. Patient was g iven Toradol on presentation and she really did not have much pain relief with that. Patient states that she is been shoveling snow and thinks that may be she may have strained her back. Regarding the dizziness I suspect possibility for M?ni?re's disease given the triad of vertigo and hearing loss and ringing in the ears. I will refer her to ENT for follow-up. Patient will be given a prescription for Zofran as well as Antivert and a few [place] for pain. Lab Data Attestation: I reviewed the patient's lab results. Labs: Laboratory Results - last 24 hr 12/04/21 12/04/21 12/04/21 11:54 12:02 12:02 WBC 9.4 RBC 4.41 Hgb 13.9 Hct 39.1 MCV 88.7 MCH 31.5 MCHC 35.5 RDW Std Deviation 38.3 RDW Coeff of Gladis 11.9 Plt Count 301 MPV 9.0 Immature Gran % (Auto) 0.300 Neut % (Auto) 76.0 H Lymph % (Auto) 18.3 L [place] % (Auto) 4.9 Eos % (Auto) 0.2 Baso % (Auto) 0.3 Absolute Neuts (auto) 7.2 Absolute Lymphs (auto) 1.72 Nucleated RBC % 0 Sodium 138 Potassium 3.8 Chloride 106 Carbon Dioxide 26.0 Anion Gap 6 BUN 6 L Creatinine 0.81 Estim Creat Clear Calc 79.75 Est GFR (MDRD) Af Amer 99 Est GFR (MDRD) Non-Af 82 BUN/Creatinine Ratio 7.4 L Glucose 120 H Calcium 9.3 Urine Color Yellow Urine Clarity Sl. Cloudy Urine pH 7.0 Ur Specific [place] 1.015 Urine Protein 15 H Urine Glucose (UA) Normal Urine Ketones 15 H Urine Occult Blood 250 H Urine Nitrite Negative Urine Bilirubin Negative Urine Urobilinogen 4 H Ur Leukocyte Esterase 25 H Urine RBC 5-10 SEEN Urine WBC 0 SEEN Ur Squamous Epith Cells 0-5 SEEN Urine Bacteria 0 SEEN Urine Mucus 0 SEEN Radiography Diagnostic Testing: Clinical Impression(s) from Imaging Studies Abdomen/Pelvis CT 12/04/21 12:27 IMPRESSION: Normal unenhanced CT of the abdomen and pelvis. Electronically Signed: Vlad Junior MD at 13:22 EST , Discharge Plan Triage Chief Complaint: Dizziness ED Provider: Mylene Kaur Dx/Rx/DC Orders Clinical Impression: Back pain, Dizziness, Meniere disease Instructions: ED Dizziness, Uncertain Cause, ED Meniere's Disease, ED Back and Neck Pain, General Prescriptions: New hydrocodone-acetaminophen [hydrocodone-acetaminophen] 1 TABLET tablet 1 tab PO Q4H PRN PRN (Reason: Pain) 2 Days Qty: 10 RF: 0 ondansetron [ondansetron] 4 MG tablet 4 mg PO Q8H PRN PRN (Reason: Nausea) Qty: 10 RF: 0 meclizine 25 mg tablet 25 mg PO TID PRN (Reason: dizziness) Qty: 20 RF: 0 No Action fluticasone propionate 50 mcg/actuation spray,suspension 1 spray intranasal DAILY RF: 0 zolpidem 10 MG tablet 10 mg PO QHS PRN (Reason: Insomnia) RF: 0 alprazolam 1 MG tablet 1 mg PO TID PRN PRN (Reason: Anxiety) RF: 0 Zyrtec 10 mg Capsule 10 mg PO DAILY RF: 0 omeprazole [Prilosec] 20 mg Capsule,Delayed Release(Dr/Ec) 20 mg PO DAILY RF: 0 metaxalone [Skelaxin] 800 mg tablet 800 mg PO TID 7 Days Qty: 21 RF: 0 Primary Care Provider: Celine Villalobos Referrals: Ezequiel Valadez MD [STAFF PHYSICIAN] - 3-5 Days Celine Villalobos MD [Primary Care Provider] - Disposition Disposition: Home, Self Care
[2021-12-04 11:58] LABS: Bacteria 0 SEEN /hpf (None Seen); Mucous, Urine 0 SEEN /hpf (<or=2+); White Blood Cells 0 SEEN /hpf (0-5)
[2021-12-04 12:00] LABS: Color, Urine Yellow (Yellow); Glucose, Dipstick Normal (Normal); Ketone-Dipstick 15 mg/dl (Negative); Leukocyte Esterase-Dipstick 25 /ul (Negative); Nitrite-Dipstick Negative (Negative); Occult Blood-Urine 250 /ul (Negative); Protein-Dipstick 15 mg/dl (Negative); Specific Gravity, Urine 1.015 (1.002-1.030); Urine Bilirubin Dipstick Negative (Negative); Urine Clarity Sl. Cloudy (Clear); Urine Urobilinogen 4 mg/dl (Normal)
[2021-12-04 12:05] LABS: Red Blood Cells-Urine 5-10 SEEN /hpf (0-5); Squamous Epithelial Cells - UA 0-5 SEEN /hpf (5-10)
[2021-12-04 12:09] LABS: Absolute Lymphocyte Count 1.72 X10^3/uL (0.83-4.51); Absolute Neutrophil Count 7.2 X10^3/uL (2.0-7.7); Basophil# 0.03 X10^3/uL; Basophil% 0.3 % (0-1); Eosinophil# 0.02 X10^3/uL; Eosinophils% 0.2 % (0-5); Hematocrit 39.1 % (37-47); Hemoglobin 13.9 g/dL (12.0-15.0); Lymphocyte # 1.72 X10^3/ul (0.83-4.51); Lymphocyte % 18.3 % (19-41); Mean Corp Hgb Conc 35.5 g/dL (32-36); Mean Corpuscular Hgb 31.5 pg (27.0-32.0); Mean Corpuscular Volume 88.7 fL (81-99); Monocyte# 0.46 X10^3/uL; Monocyte% 4.9 % (0-10); NRBC Flagged by Analyzer 0 % (0-5); Neutrophil # 7.15 X10^3/uL (2.7-7.7); Platelet Count 301 K/mm3 (150-450); RBC Distribution Width CV 11.9 % (11.6-14.6); RBC Distribution Width SD 38.3 fl (35.1-43.9); Red Blood Count 4.41 M/mm3 (4.2-5.4); White Blood Count 9.4 K/mm3 (4.4-11.0)
[2021-12-04] MEDS: Ketorolac 15 MG/ML Vial IV (12:10)
[2021-12-04] MEDS: 0.9% Normal Saline 1,000 ML 1000 ML IV (12:10)
[2021-12-04 12:23] LABS: Anion Gap 6 (5-15); BUN 6 mg/dL (7-18); BUN/Creat Ratio 7.4 RATIO (10-20); Calcium,Total 9.3 mg/dL (8.5-10.1); Chloride 106 mmol/L (98-107); Creatinine, Serum 0.81 mg/dL (0.55-1.02); EST Glomerular Filtration Rate 82 mL/min (>60); Est Glom Filt Rate - Afr Amer 99 mL/min (>60); Estimated Creatinine Clearance 79.75 ml/min; Glucose 120 mg/dL (74-106); Potassium 3.8 mmol/L (3.5-5.1); Sodium Level 138 mmol/L (136-145)
--- NOTE | 2021-12-04 12:27 | CT_ITS ---
STUDY: CT ABDOMEN AND PELVIS WITHOUT CONTRAST REASON FOR EXAM: Female, 46 years old. right flank pain RADIATION DOSAGE (If Supplied By Facility): CTDIvol = ( 7.14 ) mGy, DLP = ( 356.58 ) mGycm TECHNIQUE: Transaxial images were obtained from the dome of the diaphragm to the symphysis pubis without oral contrast, and without intravenous contrast. Sagittal and coronal images were reconstructed. Individualized dose optimization techniques were used for this CT. COMPARISON: None. FINDINGS: The visualized lung bases are unremarkable. The visualized portions of the heart are within normal limits. Normal liver. There are surgical clips in the gallbladder fossa consistent with a prior cholecystectomy. Normal spleen. Normal pancreas. Normal bilateral adrenal glands. Normal right kidney. Normal left kidney. Normal visualized stomach. Normal small intestine. Normal colon. There are surgical clips in the region of the appendix consistent with a prior appendectomy. Normal abdominal aorta. Normal inferior vena cava. Normal retroperitoneum. Normal urinary bladder. Normal abdominal wall. Normal osseous structures. CT/Abdomen/Pelvis without Cont IMPRESSION: Normal unenhanced CT of the abdomen and pelvis. Electronically Signed: Vlad Junior MD at 13:22 EST ,
[2021-12-04 12:41] VITALS: BP 120/78; BP 89/43; PULSE 102; PULSE 92; PULSE 98
[2021-12-04 13:51] VITALS: BP 124/79; PULSE 89; RESP 15; O2SAT 97
== END 2021-12-04 13:53 | disposition home or self-care (01) ==
PROVIDERS: Emergency Provider Emergency Medicine; PCP Family Medicine; Visit Provider Emergency Medicine
DX: R42 Dizziness and giddiness (principal); M54.9 Dorsalgia, unspecified; H81.09 Meniere's disease, unspecified ear; M19.90 Unspecified osteoarthritis, unspecified site; F41.9 Anxiety disorder, unspecified; Z87.442 Personal history of urinary calculi; Z79.899 Other long term (current) drug therapy; F17.210 Nicotine dependence, cigarettes, uncomplicated
CPT/HCPCS: 74176; 80048; 81001; 85025; 96361; 96374; 99284; J7030; A4216

== ENCOUNTER 2022-02-07 15:54 | Emergency (ER) | payer MEDICAID, SELFPAY ==
[2022-02-07 15:54] VITALS: BP 145/93; PULSE 100; RESP 15; TEMP 37; O2SAT 98; BMI 27.4
--- NOTE | 2022-02-07 16:09 | EDS_ITS ---
HPI History of Present Illness Chief Complaint: Abd Pain Informant: patient Onset/Context/Timing Onset: Today Current Severity: Moderate Maximum Severity: Moderate Narrative Narrative: Patient presents secondary to abdominal pain along with nausea, vomiting, and diarrhea. She has had nausea, vomiting, diarrhea for the past week. She was seen in urgent care and told she had a GI bug. She got significant abdominal pain today rather sudden onset over the mid abdomen and left flank area. States her urine is somewhat dark. She has not been eating and drinking as much is normal. She had some mild chills but no fever. [facility] Medical History Alcohol use Anemia Anxiety Arthritis Back pain Cancer Cardiology follow-up encounter Chest pain Chronic neck and back pain Former smoker History of echocardiogram History of IBS History of pain when walking Insomnia Intermittent explosive disorder Knee pain Left ureteral calculus Limb weakness Marijuana use Medial epicondylitis of right elbow Migraine headache Restless legs Shoulder pain MERNA (stress urinary incontinence, female) Wears glasses Home Medications zolpidem 10 mg PO QHS PRN 02/25/16 [History Last Taken 01/17/18 5 MG] alprazolam 1 mg PO TID PRN PRN 08/20/16 [History Last Taken 01/18/18 0.5 MG] cetirizine [Zyrtec] 10 mg PO DAILY 03/14/21 [History Last Taken Unknown] fluticasone propionate 50 mcg/actuation nasal spray,suspension 1 spray INTRANASAL DAILY g 04/05/21 [History Last Taken Unknown] omeprazole [Prilosec] 20 mg PO DAILY 05/17/21 [History Last Taken Unknown] metaxalone [Skelaxin] 800 mg PO TID 7 Days #21 tab 08/05/21 [Rx Last Taken Unknown] hydrocodone-acetaminophen 1 tab PO Q4H PRN PRN 2 Days #10 tablet 12/04/21 [Rx Last Taken Unknown] meclizine 25 mg PO TID PRN #20 tab 12/04/21 [Rx Last Taken Unknown] ondansetron 4 mg PO Q8H PRN PRN #10 tab 12/04/21 [Rx Last Taken Unknown] ketorolac 10 mg PO Q6H PRN 3 Days #10 tab 02/07/22 [Rx Last Taken Unknown] oxycodone-acetaminophen [Percocet] 1 tab PO Q6H PRN 3 Days #10 tab 02/07/22 [Rx Last Taken Unknown] Allergy/AdvReac Type Severity Reaction Status Date / Time docosahexanoic acid Allergy Hives Verified 02/07/22 15:56 [From [facility]] gabapentin Allergy Other Verified 02/07/22 15:56 iron amino acid chelate Allergy Hives Verified 02/07/22 15:56 [From [facility]] methyltetrahydrofolate Allergy Hives Verified 02/07/22 15:56 gluc.,folic [From [facility]] vitamins Allergy Hives Verified 02/07/22 15:56 combination no.39 [From [facility]] topiramate [From Topamax] AdvReac Severe Other Verified 02/07/22 15:56 hydrocodone AdvReac Itching Verified 02/07/22 15:56 morphine AdvReac Vomiting Verified 02/07/22 15:56 Family History Mother Anxiety Brother Alcoholism Father Myocardial infarction, Onset Age: 60 Surgical History H/O LEEP History of appendectomy History of benign breast biopsy History of bilateral tubal ligation (~1996) History of cholecystectomy History of endometrial ablation (~2009) History of right knee surgery History of tonsillectomy History of ureter stent Social History Smoking Status: Current some day smoker tobacco type: cigarettes alcohol intake: never substance use type: marijuana ROS ROS ED Constitutional Constitutional ED: Reports chills; Denies fever(s) Eyes Eyes: Denies change in vision ENT ENT ED: Denies sore throat Cardiovascular Cardiovascular: Denies chest pain Respiratory/Chest Respiratory/Chest: Denies cough or dyspnea Gastrointestinal Gastrointestinal: Reports abdominal pain, diarrhea, nausea and vomiting Genitourinary Genitourinary ED: Denies dysuria Musculoskeletal Musculoskeletal: Reports back pain Integumentary Denies rash Neurologic Neurologic: Denies headache(s) or weakness Allergic/Immunologic Allergic/Immunologic ED: Denies urticaria EXAM Physical Exam Const Vital Signs: 02/07/22 15:54 02/07/22 17:39 Temperature 98.6 F Temperature Source Temporal Pulse Rate 100 81 Respiratory Rate 15 16 Blood Pressure 145/93 H 133/85 H Blood Pressure Mean 110 101 Pulse Ox 98 98 Oxygen Delivery Method Room Air Room Air Positive well nourished and well developed General Appearance ED: well developed HEENT Reports moist mucous membranes Eyes PERRL and EOMs intact bilaterally Neck supple Chest Wall inspection of chest normal and palpation of chest normal Resp normal respiratory effort and clear to auscultation bilaterally Cardio regular rate and regular rhythm GI Palpation: soft and tender other (Diffuse tenderness location. No guarding or rebound. Present bowel sounds.) Extremity normal to inspection Neuro oriented x3 Sensorium / Orientation: alert Psych Mood & Affect: anxious Skin no rashes or lesions noted MDM MDM MDM Narrative Medical decision making narrative: Patient given morphine and Zofran for pain. Lab work, urinalysis, CT flank obtained. Lab Data Attestation: I reviewed the patient's lab results. Labs: Laboratory Results - last 24 hr 02/07/22 02/07/22 02/07/22 16:20 16:20 16:20 WBC 13.1 H RBC 4.52 Hgb 13.9 Hct 39.4 MCV 87.2 MCH 30.8 MCHC 35.3 RDW Std Deviation 37.8 RDW Coeff of Gladis 11.8 Plt Count 349 MPV 9.2 Immature Gran % (Auto) 0.600 Neut % (Auto) 72.2 H Lymph % (Auto) 21.6 [place] % (Auto) 5.1 Eos % (Auto) 0.2 Baso % (Auto) 0.3 Absolute Neuts (auto) 9.5 H Absolute Lymphs (auto) 2.83 Nucleated RBC % 0 Sodium 136 Potassium 3.9 Chloride 105 Carbon Dioxide 24.0 Anion Gap 7 BUN 9 Creatinine 0.98 Estim Creat Clear Calc 65.92 Est GFR (MDRD) Af Amer 79 Est GFR (MDRD) Non-Af 66 BUN/Creatinine Ratio 9.2 L Glucose 96 Calcium 9.9 Total Bilirubin 0.50 Direct Bilirubin 0.14 AST 18 ALT 18 Alkaline Phosphatase 129 H Total Protein 8.1 Albumin 4.3 Globulin 3.8 Lipase 35 L Serum , Qual NEGATIVE Urine Color Urine Clarity Urine pH Ur Specific [place] Urine Protein Urine Glucose (UA) Urine Ketones Urine Occult Blood Urine Nitrite Urine Bilirubin Urine Urobilinogen Ur Leukocyte Esterase Urine RBC Urine WBC Ur Squamous Epith Cells Urine Bacteria Urine Mucus 02/07/22 17:30 WBC RBC Hgb Hct MCV MCH MCHC RDW Std Deviation RDW Coeff of Gladis Plt Count MPV Immature Gran % (Auto) Neut % (Auto) Lymph % (Auto) [place] % (Auto) Eos % (Auto) Baso % (Auto) Absolute Neuts (auto) Absolute Lymphs (auto) Nucleated RBC % Sodium Potassium Chloride Carbon Dioxide Anion Gap BUN Creatinine Estim Creat Clear Calc Est GFR (MDRD) Af Amer Est GFR (MDRD) Non-Af BUN/Creatinine Ratio Glucose Calcium Total Bilirubin Direct Bilirubin AST ALT Alkaline Phosphatase Total Protein Albumin Globulin Lipase Serum , Qual Urine Color Straw Urine Clarity Sl. Cloudy Urine pH 6.0 Ur Specific [place] 1.010 Urine Protein Negative Urine Glucose (UA) Normal Urine Ketones Negative Urine Occult Blood 150 H Urine Nitrite Negative Urine Bilirubin Negative Urine Urobilinogen Normal Ur Leukocyte Esterase Negative Urine RBC 0-5 SEEN Urine WBC 0-5 SEEN Ur Squamous Epith Cells 0-5 SEEN Urine Bacteria RARE Urine Mucus 0 SEEN Radiography Diagnostic Testing: Clinical Impression(s) from Imaging Studies Abdomen/Pelvis CT 02/07/22 17:09 IMPRESSION: 1. Very mild edematous changes of the transverse colon that may be indicative of a very early transverse colitis. 2. Previous cholecystectomy and appendectomy. 3. No pancreatitis. 4. Normal kidneys without cystic or solid mass lesions or obstructive uropathy. 5. No uterine or ovarian abnormalities. 6. No other abnormal findings. Electronically Signed: Hunter Victor MD at 17:42 EDT , Treatment and Re-Evaluation Narrative: On repeat evaluation patient states that her pain is starting to come back. Lab work is reviewed with her. White count is minimally elevated at 13.1. Renal function is normal. Urinalysis does show [address] scan reveals no obvious kidney stones. There is very mild edematous changes in the transverse colon likely related to her recent GI illness. I still believe this is viral in etiology. Patient will be given prescription for Toradol and [place]. She declines anything further at this time for pain. Discharge Plan Triage Chief Complaint: Abd Pain ED Provider: Kaykay Ramesh Dx/Rx/DC Orders Clinical Impression: Acute flank pain, Hematuria Instructions: ED Flank Pain, Uncertain Cause Prescriptions: New oxycodone-acetaminophen [Percocet] 5-325 mg tablet 1 tab PO Q6H PRN (Reason: pain) 3 Days Qty: 10 RF: 0 ketorolac 10 mg tablet 10 mg PO Q6H PRN (Reason: pain) 3 Days Qty: 10 RF: 0 No Action fluticasone propionate 50 mcg/actuation spray,suspension 1 spray intranasal DAILY RF: 0 zolpidem 10 MG tablet 10 mg PO QHS PRN (Reason: Insomnia) RF: 0 alprazolam 1 MG tablet 1 mg PO TID PRN PRN (Reason: Anxiety) RF: 0 Zyrtec 10 mg Capsule 10 mg PO DAILY RF: 0 omeprazole [Prilosec] 20 mg Capsule,Delayed Release(Dr/Ec) 20 mg PO DAILY RF: 0 metaxalone [Skelaxin] 800 mg tablet 800 mg PO TID 7 Days Qty: 21 RF: 0 hydrocodone-acetaminophen [hydrocodone-acetaminophen] 1 TABLET tablet 1 tab PO Q4H PRN PRN (Reason: Pain) 2 Days Qty: 10 RF: 0 ondansetron [ondansetron] 4 MG tablet 4 mg PO Q8H PRN PRN (Reason: Nausea) Qty: 10 RF: 0 meclizine 25 mg tablet 25 mg PO TID PRN (Reason: dizziness) Qty: 20 RF: 0 Primary Care Provider: Celine Villalobos Referrals: Celine Villalobos MD [Primary Care Provider] - 3-5 Days if not improving Disposition Disposition: Home, Self Care
[2022-02-07] MEDS: Ondansetron 4 MG/2 ML Vial IV (16:29)
[2022-02-07] MEDS: Morphine 4 MG/ML Syringe IV (16:29)
[2022-02-07] MEDS: 0.9% Normal Saline 1,000 ML 1000 ML IV (16:30)
[2022-02-07 16:35] LABS: Absolute Lymphocyte Count 2.83 X10^3/uL (0.83-4.51); Absolute Neutrophil Count 9.5 X10^3/uL (2.0-7.7); Basophil# 0.04 X10^3/uL; Basophil% 0.3 % (0-1); Eosinophil# 0.03 X10^3/uL; Eosinophils% 0.2 % (0-5); Hematocrit 39.4 % (37-47); Hemoglobin 13.9 g/dL (12.0-15.0); Lymphocyte # 2.83 X10^3/ul (0.83-4.51); Lymphocyte % 21.6 % (19-41); Mean Corp Hgb Conc 35.3 g/dL (32-36); Mean Corpuscular Hgb 30.8 pg (27.0-32.0); Mean Corpuscular Volume 87.2 fL (81-99); Mean Platelet Vol. 9.2 fl (6.2-12.0); Monocyte# 0.67 X10^3/uL; Monocyte% 5.1 % (0-10); NRBC Flagged by Analyzer 0 % (0-5); Neutrophil # 9.47 X10^3/uL (2.7-7.7); Neutrophil % 72.2 % (47-70); Platelet Count 349 K/mm3 (150-450); RBC Distribution Width CV 11.8 % (11.6-14.6); RBC Distribution Width SD 37.8 fl (35.1-43.9); Red Blood Count 4.52 M/mm3 (4.2-5.4); White Blood Count 13.1 K/mm3 (4.4-11.0)
[2022-02-07 16:50] LABS: Internal QC Validated? YES +Cl - CLEAR BKGD; Pregnancy, Serum, hCG Quali. NEGATIVE Negative
[2022-02-07 16:53] LABS: AST(SGOT) 18 U/L (15-37); Alanine Aminotransfer ALT/SGPT 18 U/L (13-56); Albumin, Serum 4.3 g/dL (3.2-5.0); Alkaline Phosphatase 129 U/L (45-117); Anion Gap 7 (5-15); BUN 9 mg/dL (7-18); BUN/Creat Ratio 9.2 RATIO (10-20); Bilirubin, Direct 0.14 mg/dL (0.00-0.30); Calcium,Total 9.9 mg/dL (8.5-10.1); Chloride 105 mmol/L (98-107); Creatinine, Serum 0.98 mg/dL (0.55-1.02); EST Glomerular Filtration Rate 66 mL/min (>60); Est Glom Filt Rate - Afr Amer 79 mL/min (>60); Estimated Creatinine Clearance 65.92 ml/min; Globulin 3.8 g/dL (2.2-4.2); Glucose 96 mg/dL (74-106); Lipase 35 U/L (73-393); Potassium 3.9 mmol/L (3.5-5.1); Protein, Total 8.1 g/dL (6.4-8.2); Sodium Level 136 mmol/L (136-145)
--- NOTE | 2022-02-07 17:09 | CT_ITS ---
STUDY: CT ABDOMEN AND PELVIS WITHOUT CONTRAST ENHANCEMENT OF 1710 HOURS ON 02/07/2022 REASON FOR EXAM: 46-year-old female with abdominal pain. RADIATION DOSAGE (If Supplied By Facility): CTDIvol = ( 8.29 ) mGy, DLP = ( 416.44 ) mGycm TECHNIQUE: Transaxial images were obtained from the dome of the diaphragm to the symphysis pubis without oral contrast, and without intravenous contrast. Sagittal and coronal images were reconstructed. Individualized dose optimization techniques were used for this CT. COMPARISON: None. FINDINGS: The visualized lung bases are unremarkable. The visualized portions of the heart are within normal limits. Normal liver. Previous cholecystectomy. No dilatation of the intrahepatic biliary system with common duct. Normal spleen. Normal pancreas; no pancreatitis or pancreatic mass lesions.. Normal bilateral adrenal glands. Normal right kidney. Normal left kidney. No hydronephrosis or obstructive uropathy. No cystic or solid mass lesions. Normal visualized stomach. Normal small intestine. Very mild edematous changes of the transverse colon that may be indicative of a very early transverse colitis. Previous appendectomy. Normal abdominal aorta. Normal inferior vena cava. Normal retroperitoneum. Normal anteverted uterus. No ovarian cystic or solid mass lesions. Normal urinary bladder. Normal abdominal wall. No abscesses or solid mass lesions. No lumbar vertebral body fractures, subluxations, or intervertebral disc space narrowing. Moderate narrowing of both joint spaces. Normal pelvic bones. CT/Abdomen/Pelvis without Cont IMPRESSION: 1. Very mild edematous changes of the transverse colon that may be indicative of a very early transverse colitis. 2. Previous cholecystectomy and appendectomy. 3. No pancreatitis. 4. Normal kidneys without cystic or solid mass lesions or obstructive uropathy. 5. No uterine or ovarian abnormalities. 6. No other abnormal findings. Electronically Signed: Hunter Victor MD at 17:42 EDT ,
[2022-02-07 17:39] VITALS: BP 133/85; PULSE 81; RESP 16; O2SAT 98
[2022-02-07 17:40] LABS: Mucous, Urine 0 SEEN /hpf (<or=2+)
[2022-02-07 17:48] LABS: Color, Urine Straw (Yellow); Glucose, Dipstick Normal (Normal); Ketone-Dipstick Negative (Negative); Leukocyte Esterase-Dipstick Negative /ul (Negative); Nitrite-Dipstick Negative (Negative); Occult Blood-Urine 150 /ul (Negative); Protein-Dipstick Negative (Negative); Urine Bilirubin Dipstick Negative (Negative); Urine Clarity Sl. Cloudy (Clear); Urine Urobilinogen Normal (Normal)
[2022-02-07 18:05] LABS: Squamous Epithelial Cells - UA 0-5 SEEN /hpf (5-10)
[2022-02-07 18:06] LABS: Bacteria RARE /hpf (None Seen); Red Blood Cells-Urine 0-5 SEEN /hpf (0-5); White Blood Cells 0-5 SEEN /hpf (0-5)
== END 2022-02-07 19:58 | disposition home or self-care (01) ==
PROVIDERS: Emergency Provider Emergency Medicine; PCP Family Medicine; Visit Provider Emergency Medicine
DX: R11.2 Nausea with vomiting, unspecified (principal); R10.9 Unspecified abdominal pain; R19.7 Diarrhea, unspecified; R31.9 Hematuria, unspecified; G89.29 Other chronic pain; M19.90 Unspecified osteoarthritis, unspecified site; F41.9 Anxiety disorder, unspecified; Z87.442 Personal history of urinary calculi; Z79.899 Other long term (current) drug therapy; F17.210 Nicotine dependence, cigarettes, uncomplicated
CPT/HCPCS: 74176; 80048; 80076; 81001; 83690; 84703; 85025; 96361; 96374; 96375; 99283; J7030; A4216; J2405

== ENCOUNTER → 2022-05-30 | Outpatient (CLI) | payer MEDICAID, SELFPAY ==
[2022-05-30 15:31] LABS: Absolute Lymphocyte Count 2.87 X10^3/uL (0.83-4.51); Absolute Neutrophil Count 4.9 X10^3/uL (2.0-7.7); Basophil# 0.05 X10^3/uL; Basophil% 0.6 % (0-1); Eosinophil# 0.23 X10^3/uL; Eosinophils% 2.7 % (0-5); Hematocrit 38.7 % (37-47); Hemoglobin 13.6 g/dL (12.0-15.0); Lymphocyte # 2.87 X10^3/ul (0.83-4.51); Lymphocyte % 33.3 % (19-41); Mean Corp Hgb Conc 35.1 g/dL (32-36); Mean Corpuscular Hgb 31.1 pg (27.0-32.0); Mean Corpuscular Volume 88.4 fL (81-99); Mean Platelet Vol. 9.7 fl (6.2-12.0); Monocyte# 0.59 X10^3/uL; Monocyte% 6.8 % (0-10); NRBC Flagged by Analyzer 0 % (0-5); Neutrophil # 4.87 X10^3/uL (2.7-7.7); Neutrophil % 56.4 % (47-70); Platelet Count 352 K/mm3 (150-450); RBC Distribution Width CV 11.9 % (11.6-14.6); RBC Distribution Width SD 38.1 fl (35.1-43.9); Red Blood Count 4.38 M/mm3 (4.2-5.4); White Blood Count 8.6 K/mm3 (4.4-11.0)
[2022-05-30 15:42] LABS: Erythrocyte Sedimentation Rate 8 mm/hr (0-30)
[2022-05-30 19:07] LABS: BUN 10 mg/dL (7-18); Glucose 143 mg/dL (74-106)
[2022-05-30 19:08] LABS: ALB/GLOB Ratio 0.9 RATIO (0.9-2.4); AST(SGOT) 18 U/L (15-37); Albumin, Serum 3.4 g/dL (3.2-5.0); Creatinine, Serum 0.91 mg/dL (0.55-1.02); Globulin 3.7 g/dL (2.2-4.2); Protein, Total 7.1 g/dL (6.4-8.2)
[2022-05-30 19:09] LABS: Alanine Aminotransfer ALT/SGPT 27 U/L (13-56); Alkaline Phosphatase 129 U/L (45-117); Chloride 107 mmol/L (98-107); Potassium 4.2 mmol/L (3.5-5.1); Sodium Level 137 mmol/L (136-145)
[2022-05-30 19:10] LABS: Anion Gap 8 (5-15); CRP 6.16 mg/L (0.0-3.0); Rheumatoid Factor < 10.0 IU/mL (<15); T4 Free Direct 1.06 ng/dL (0.76-1.46); Thyroid Stim Hormone (TSH) 1.69 uIU/mL (0.358-3.74)
[2022-05-30 19:36] LABS: EST Glomerular Filtration Rate 71 mL/min (>60); Est Glom Filt Rate - Afr Amer 86 mL/min (>60); Prolactin 17.9 ng/mL
[2022-06-01 16:27] LABS: ANTINUCLEAR ANTIBODIES DIRECT Negative (Negative)
[2022-06-02 01:07] LABS: Thyroid Peroxidase AB 9 IU/mL (0-34)
[2022-06-02 15:24] LABS: CCP IgG Antibodies 6 units (0-19); Thyroglobulin Antibody < 1.0 IU/mL (0.0-0.9)
== END | disposition home or self-care (01) ==
LOC: MTLAB 11:42
PROVIDERS: PCP Family Medicine; Referring Provider Family Medicine; Visit Provider Family Medicine
DX: E03.9 Hypothyroidism, unspecified (principal); N64.3 Galactorrhea not associated with childbirth; M25.50 Pain in unspecified joint
CPT/HCPCS: 36415; 80053; 84146; 84439; 84443; 85025; 85652; 86038; 86140; 86200; 86376; 86431; 86800

== ENCOUNTER → 2024-08-08 | Outpatient (CLI) | payer MEDICAID, SELFPAY ==
[2024-08-08 17:58] LABS: Absolute Lymphocyte Count 2.54 X10^3/uL (0.83-4.51); Absolute Neutrophil Count 5.6 X10^3/uL (2.0-7.7); Basophil# 0.03 X10^3/uL; Basophil% 0.3 % (0-1); Eosinophil# 0.26 X10^3/uL; Eosinophils% 2.8 % (0-5); Hemoglobin 11.7 g/dL (12.0-15.0); Lymphocyte # 2.54 X10^3/ul (0.83-4.51); Lymphocyte % 27.7 % (19-41); Mean Corp Hgb Conc 32.5 g/dL (32-36); Mean Corpuscular Hgb 29.8 pg (27.0-32.0); Mean Corpuscular Volume 91.8 fL (81-99); Mean Platelet Vol. 10.4 fl (6.2-12.0); Monocyte% 7.6 % (0-10); NRBC Flagged by Analyzer 0 % (0-5); Neutrophil # 5.55 X10^3/uL (2.7-7.7); Neutrophil % 60.7 % (47-70); Platelet Count 295 K/mm3 (150-450); RBC Distribution Width CV 12.6 % (11.6-14.6); RBC Distribution Width SD 42.3 fl (35.1-43.9); Red Blood Count 3.92 M/mm3 (4.2-5.4); White Blood Count 9.2 K/mm3 (4.4-11.0)
[2024-08-08 18:27] LABS: ALB/GLOB Ratio 0.9 RATIO (0.9-2.4); AST(SGOT) 31 U/L (15-37); Alanine Aminotransfer ALT/SGPT 38 U/L (13-56); Albumin, Serum 3.3 g/dL (3.2-5.0); Alkaline Phosphatase 127 U/L (45-117); Anion Gap 7 (5-15); BUN 6 mg/dL (7-18); BUN/Creat Ratio 7.2 RATIO (10-20); Calcium,Total 9.4 mg/dL (8.5-10.1); Chloride 102 mmol/L (98-107); Creatinine, Serum 0.83 mg/dL (0.55-1.02); EST Glomerular Filtration Rate 78 mL/min (>60); Est Glom Filt Rate - Afr Amer 94 mL/min (>60); Free T3 3.9 pg/mL (2.18-3.98); Globulin 3.8 g/dL (2.2-4.2); Glucose 112 mg/dL (74-106); Potassium 4.1 mmol/L (3.5-5.1); Protein, Total 7.1 g/dL (6.4-8.2); Sodium Level 137 mmol/L (136-145); T4 Free Direct 0.87 ng/dL (0.76-1.46)
== END | disposition home or self-care (01) ==
LOC: BFHLAB 16:14
PROVIDERS: PCP Family Medicine; Referring Provider Family Medicine; Visit Provider Family Medicine
DX: I10 Essential (primary) hypertension (principal); E05.90 Thyrotoxicosis, unspecified without thyrotoxic crisis or storm
CPT/HCPCS: 36415; 80053; 84439; 84443; 84481; 85025

== ENCOUNTER 2024-12-30 10:49 | Day surgery (SDC) | payer MEDICAID, SELFPAY ==
--- NOTE | 2024-12-24 18:33 | PAT.ANE_ITS ---
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 When Was Last Pacemaker Check QUESTION #4 FULL TEXT: You/Your Family Experience fever (hyperthermia) with Anesthesia Last Oral Intake Last Oral intake: Last Oral Intake NPO since Meds taken in AM with sips of water? Meds patient instructed to take am of surgery PONV PONV - naval police coxswain: PONV - naval police coxswain Female Yes 12/24/24 13:40 HX of Motion Sickness Yes 12/24/24 13:40 HX of N/V After Surgery Yes 12/24/24 13:40 Non-Smoker Yes 12/24/24 13:40 Duration of Surgery greater No 12/24/24 13:40 than 60 minutes Number of Risk Factors 4 12/24/24 13:40 PONV Score Severe Risk 12/24/24 13:40 Height & Weight Height & Weight: Anesthesia: Height & Weight Height 5 ft 5 in 11/27/24 14:17 Respiratory Assessment Respiratory Assessment - naval police coxswain: Respiratory Tract Infection Hx - naval police coxswain Hx Respiratory Tract Infection No 12/24/24 13:40 STOP Sleep Apnea STOP Sleep Apnea - naval police coxswain: STOP Sleep Apnea - naval police coxswain Hx Hypertension No 12/24/24 13:40 Hx Sleep Apnea No 12/24/24 13:40 CPAP No 12/24/24 13:40 BIPAP Do you snore loudly (louder No 12/24/24 13:40 than talking or can be heard Do you often feel tired/ No 12/24/24 13:40 fatigued/ sleepy during daytime? Has anyone observed you stop No 12/24/24 13:40 breathing during sleep? STOP Results Negative 12/24/24 13:40 QUESTION #5 FULL TEXT : Do you snore loudly (louder than talking or can be heard through closed doors)? Tobacco Use History Tobacco Use History - naval police coxswain: Tobacco Use History - naval police coxswain Tobacco Use Cigarettes 03/14/21 15:16 Smoking Status Current every day smoker 12/24/24 13:40 Hx Tobacco Use No 12/24/24 13:40 Years Smoking Packs Smoked per Day Smoking Cessation Date was within the last 15 years Hx Smoking Cessation Date Hx Smoking Cessation Counseling Hematologic Medial History Hematologic Hx - naval police coxswain: Hematologic Medical Hx - media specialist Hx of Blood Transfusion No 12/24/24 13:40 Hx of Transfusion in last 3 No 12/24/24 13:40 Months Date of Last Transfusion (if within last 3 months) Ever experience any problems No 12/24/24 13:40 with transfusion(s)? Specify any problems Hx of Preganancy in last 3 No 12/24/24 13:40 Months Nurse Filling Out Transfusion VCHRISTIN 12/24/24 13:40 & Questions: Date: 12/24/24 12/24/24 13:40 Time: 13:41 12/24/24 13:40 Patient unable to answer at this time (ie. confused, unrespo /Reproduction History /Reproductive History - naval police coxswain: /Reproductive Hx- naval police coxswain Hx Now No 12/24/24 13:40 Gestational Age (in weeks): EDC: Hx Hx Para Hx Section SAB No 12/24/24 13:40 PFSH Medical History (Updated 12/24/24 @ 13:40 by Payton Hill) History of steroid therapy Kidney stones High cholesterol Injury of head and neck Hoarseness History of edema Hypertension Physical exam, pre-employment Wears glasses Alcohol use Marijuana use Restless legs Migraine headache History of IBS Former smoker History of pain when walking History of echocardiogram Cardiology follow-up encounter Chest pain Back pain Left ureteral calculus Insomnia Intermittent explosive disorder Anxiety Medial epicondylitis of right elbow Chronic neck and back pain Limb weakness Knee pain Anemia Shoulder pain Arthritis MERNA (stress urinary incontinence, female) Home Medications ?Medication ?Instructions ?Recorded ?Last Taken ?Type fluticasone propionate 50 1 spray intranasal DAILY 06/18 Unknown History mcg/actuation nasal spray,suspension ondansetron 4 mg disintegrating 4 mg PO Q8H PRN PRN Na usea #10 tabs 12/04/21 Unknown Rx tablet lisinopril 20 1 tab PO QDAY 11/25/24 Unkno wn History mg-hydrochlorothiazide 12.5 mg tablet quetiapine 50 mg tablet 50 mg PO QDAY 11/25/24 Unkno wn History zolpidem 10 mg tablet 10 mg PO QHS 11/25/24 Unknow n History lansoprazole 30 mg capsule,delayed 30 mg PO QDAY #30 c aps 11/27/24 Unknown Rx release rosuvastatin 10 mg tablet 10 mg PO QHS 12/24/24 Unknow n History Allergy/AdvReac Type Severity Reaction Status Date / Time docosahexanoic acid (From Allergy Hives Verified 12/24/24 13:22 [facility]) iron amino acid chelate Allergy Hives Verified 12/24/24 13:22 (From [facility]) methyltetrahydrofolate Allergy Hives Verified 12/24/24 13:22 gluc.,folic (From [facility]) vitamins Allergy Hives Verified 12/24/24 13:22 combination no.39 (From [facility]) topiramate (From Topamax) AdvReac Severe Other Verified 12/24/24 13:22 morphine AdvReac Vomiting Verified 12/24/24 13:22 Family History (Updated 11/25/24 @ 08:52 by Michaela Soriano) Mother Anxiety Brother Alcoholism Father Myocardial infarction, Onset Age: 60 Arthritis Surgical History (Updated 12/24/24 @ 13:40 by Payton Hill) History of esophagogastroduodenoscopy (EGD) History of ureter stent History of right knee surgery History of benign breast biopsy H/O LEEP History of endometrial ablation (~2009) History of bilateral tubal ligation (~1996) History of appendectomy History of cholecystectomy History of tonsillectomy Social History (Updated 11/25/24 @ 08:54 by Michaela Soriano) Smoking Status: Current every day smoker tobacco type: cigarettes alcohol intake: never substance use type: former substance user Date of last use: fentanyl and marijuana Audit: Pertinent Findings Pertinent Findings Echo (EF%) pertinent findings: Patient with echocardiogram from March 2021 that demonstrates normal LV size, normal left ventricular systolic function, estimated LVEF of 60%, mild 1+ mitral valve insufficiency with no obvious prolapse. Consult pertinent findings: Patient saw logistics operations director on March 2021 for history of palpitations after which they did an echocardiogram and a Holter monitor study. There is no evidence of atrial fibrillation. Additional pertinent findings: Holter monitor results from March 2021 demonstrates 7 ventricular ectopic beats and 1 supraventricular ectopic beat no evidence of atrial fibrillation or ventricular tachycardia. Patient was not symptomatic during this. Recommendation Anesthesia Recommendation Anesthesia recommendation: OPTIMIZED for anesthesia
[2024-12-30] VITALS (8 sets, daily range): BP systolic 130–135; BP diastolic 77–90; PULSE 70–91; RESP 14–16; TEMP 36.1–36.4; O2SAT 97–100; BMI 32.4
--- NOTE | 2024-12-30 11:48 | HP.PCM_ITS ---
HPI - General General Date of Admission: 12/30/24 Date of Service: 12/30/24 HPI Narrative GARRY NELSON, is a 49 F who presents 49y/o female presents for consultation with complaints of abdominal pain. PMH significant for HTN, Bipolar, intermittent explosive disorder, Opiate abuse, CCX, appendectomy. EGD performed in 2020 revealed a large amount of retained gastric contents; biopsies were negative for Barretts and H. pylori. [facility]/18/20[facility] - Neg. Mcbride's and H. pylori - Z-line irregular, 40 cm from the incisors. Biopsied. - Erythematous mucosa in the prepyloric region of the stomach. Biopsied. - A large amount of food (residue) in the stomach. - Normal examined duodenum. CT A&P 02/07/2022 Very mild edematous changes of the transverse colon that may be indicative of a very early transverse colitis. - patient brought vomit bag with her - she reports vomiting immediately after eating and bringing up x3 years - nausea - episodes are not every day - she avoids foods with red sauce, fast food fish - reports having emesis for 1-2 days and then will have several good days - Omeprazole 40mg daily - long time - never tried any other PPI - Ondansetron PRN - does not really help - reports despite PPI she has the worst HB - describes this as a burning pressure - reports she went to [facility] ED - per patient cardiac w/u was negative - almost like an elephant on my chest - denies any weight loss - denies any h/o eating disorder - denies any heart or lung disease - denies any kidneys disease - denies any h/o colonoscopy - declines colon cancer screening [facility] Medical History History of steroid therapy Kidney stones High cholesterol Injury of head and neck Hoarseness History of edema Hypertension Physical exam, pre-employment Wears glasses Alcohol use Marijuana use Restless legs Migraine headache History of IBS Former smoker History of pain when walking History of echocardiogram Cardiology follow-up encounter Chest pain Back pain Left ureteral calculus Insomnia Intermittent explosive disorder Anxiety Medial epicondylitis of right elbow Chronic neck and back pain Limb weakness Knee pain Anemia Shoulder pain Arthritis MERNA (stress urinary incontinence, female) Home Medications ?Medication ?Instructions ?Recorded ?Last Taken ?Type fluticasone propionate 50 1 spray intranasal DAILY 06/18 Unknown History mcg/actuation nasal spray,suspension ondansetron 4 mg disintegrating 4 mg PO Q8H PRN PRN Na usea #10 tabs 12/04/21 Unknown Rx tablet lisinopril 20 1 tab PO QDAY 11/25/24 Unkno wn History mg-hydrochlorothiazide 12.5 mg tablet quetiapine 50 mg tablet 50 mg PO QDAY 11/25/24 Unkno wn History zolpidem 10 mg tablet 10 mg PO QHS 11/25/24 Unknow n History lansoprazole 30 mg capsule,delayed 30 mg PO QDAY #30 c aps 11/27/24 Unknown Rx release rosuvastatin 10 mg tablet 10 mg PO QHS 12/24/24 Unknow n History Allergy/AdvReac Type Severity Reaction Status Date / Time docosahexanoic acid (From Allergy Hives Verified 12/30/24 11:05 [facility] Rx) iron amino acid chelate Allergy Hives Verified 12/30/24 11:05 (From [facility] Rx) methyltetrahydrofolate Allergy Hives Verified 12/30/24 11:05 gluc.,folic (From [facility]) vitamins Allergy Hives Verified 12/30/24 11:05 combination no.39 (From [facility] Rx) topiramate (From Topamax) AdvReac Severe Other Verified 12/30/24 11:05 morphine AdvReac Vomiting Verified 12/30/24 11:05 Family History Mother Anxiety Brother Alcoholism Father Myocardial infarction, Onset Age: 60 Arthritis Surgical History History of esophagogastroduodenoscopy (EGD) History of ureter stent History of right knee surgery History of benign breast biopsy H/O LEEP History of endometrial ablation (~2009) History of bilateral tubal ligation (~1996) History of appendectomy History of cholecystectomy History of tonsillectomy Social History Smoking Status: Current every day smoker tobacco type: cigarettes alcohol intake: never substance use type: former substance user Date of last use: fentanyl and marijuana ROS Constitutional Constitutional: Denies fatigue, fever(s), poor appetite, weight gain or weight loss Gastrointestinal Gastrointestinal: Denies belching, bloating, change in bowel habits, change in stool character, chewing difficulty, coffee ground emesis, constipation, cramping, diarrhea, dyspepsia, dysphagia, early satiety, excessive flatus, fecal incontinence, heartburn, hematemesis, hematochezia, hemorrhoids, loose stools, melena, nausea, odynophagia, rectal bleeding, tenesmus, vomiting or weight changes Vital Signs Vital Signs Vital Signs: 12/30/24 11:06 12/30/24 11:06 Temperature 97.1 F L Temperature Source Temporal Pulse Rate 70 Respiratory Rate 16 Respiratory Pattern Normal Blood Pressure 131/83 H Blood Pressure Mean 99 Blood Pressure Source Monitor Blood Pressure Position Semi-Fowlers Blood Pressure Location Right Arm Pulse Ox 98 Oxygen Delivery Method Room Air Weight Weight: 195 lb Body Mass Index (BMI) 32.4 Physical Exam Const alert, oriented x3, no apparent distress and healthy appearing General Appearance: cooperative GI normal to inspection, nondistended, normoactive bowel sounds, soft to palpation, non-tender and non-distended Percussion: normal to percussion Rectal Exam: deferred Assessment & Plan Assessment/Plan (1) Nausea and vomiting: QUALIFIERS: Vomiting type: unspecified Qualified Code(s): R11.2 - Nausea with vomiting, unspecified PLAN: Assessment and Plan Assessment and Plan (1) Abdominal symptoms: (2) Epigastric abdominal pain: Status: Acute (3) Nausea and vomiting: Status: Acute Qualifiers: Vomiting type: unspecified Qualified Code(s): R11.2 - Nausea with vomiting, unspecified Orders: Orders Gastric Emptying Study - 4 HR Today R10.13 - Epigastric pain, R11.2 - Nausea with vomiting, unspecified Medications: New lansoprazole take 30 minutes before breakfast daily 30 mg PO QDAY 30 caps 0RF Discontinued omeprazole Discontinued Reason: Order Changed 40 mg PO DAILY ferrous fumarate Discontinued Reason: Pt no longer taking 324 mg PO QDAY Plan 49y/o female presents for consultation with complaints of emesis. PMH significant for HTN, Bipolar, intermittent explosive disorder, Opiate abuse, CCX, appendectomy. EGD performed in 2020 revealed a large amount of retained gastric contents; biopsies were negative for Mcbride's and H. pylori. She c/o nausea and vomiting without weight loss x3 years. She also c/o chronic HB despite daily Omeprazole, reporting an ED visit 1 week ago at [facility] for c/o chest pain, almost like an elephant on my chest. She reports cardiac w/u was unremarkable. She is vomiting during visit today, and reports this is food she ate last evening. I have changed her PPI and scheduled her for a GES and EGD. We will keep you apprised of our findings. EGD - NPO after 7pm evening prior Plan Details Follow Up: 3 Months
--- NOTE | 2024-12-30 11:58 | PCM.PRE.AN2 ---
ASA Classification* ASA Classification ASA Classification: 2 Assessment & Plan Anesthesia* Anesthesia Assessment Anesthesia Assessment: Discussed sedation and/or anesthesia options, risks, benefits, and alternatives with patient/parents/legal guardian/POA. Questions invited. The patient/parents/legal guardian/POA seems to understand and agrees to proceed with anesthesia plan. Reviewed the physical assessment, medical history, allergy history and patient home medications list prior to surgery/procedure/anesthetic and documented any changes. Performed airway and anesthesia risk assessments. Anesthesia Type Anesthesia Type: MAC History Source History Obtained from:: Patient and Chart Anesthesia Focused Assessment* Temperature: 97.1 F Pulse Rate: 70 Blood Pressure: 131/83 Respiratory Rate: 16 Pulse Ox: 98 Airway Assessment Mouth opens: >3 cm Mallampati Score: III Teeth Condition: Intact Neck Range of motion (ROM): Full ROM Focused Labs Anesthesia Preop lab: CBC WBC 9.2 K/mm3 (4.4-11.0) 08/08/24 16:15 08/08/24 RBC 3.92 M/mm3 (4.2-5.4) L 08/08/24 16:15 08/08/24 Hgb 11.7 g/dL (12.0-15.0) L 08/08/24 16:15 08/08/24 Hct 36.0 % (37-47) L 08/08/24 16:15 08/08/24 Plt Count 295 K/mm3 (150-450) 08/08/24 16:15 08/08/24 CHEMISTRY Potassium 4.1 mmol/L (3.5-5.1) 08/08/24 16:15 08/08/24 Sodium 137 mmol/L (136-145) 08/08/24 16:15 08/08/24 BUN 6 mg/dL (7-18) L 08/08/24 16:15 08/08/24 Creatinine 0.83 mg/dL (0.55-1.02) 08/08/24 16:15 08/08/24 Glucose 112 mg/dL (74-106) H 08/08/24 16:15 08/08/24 TSH 1.580 uIU/mL (0.358-3.740) 08/08/24 16:15 08/08/24 COAG PT 13.0 SECONDS (11.7-14.9) 07/04/18 16:22 07/04/18 Urine Test Negative Negative 07/10/18 06:35 07/10/18 Pre-Assessment Diagnosis/Proposed Procedure Planned Operative Procedure(s): EGD Anesthesia History 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 When Was Last Pacemaker Check QUESTION #4 FULL TEXT: You/Your Family Experience fever (hyperthermia) with Anesthesia Any additional information?: No Last Oral Intake Last Oral intake: Last Oral Intake NPO since 00:00 12/30/24 11:06 Meds taken in AM with sips of water? Meds patient instructed to take am of surgery Any additional information?: No PONV PONV - fret saw operator: PONV - fret saw operator Female Yes 12/24/24 13:40 HX of Motion Sickness Yes 12/24/24 13:40 HX of N/V After Surgery Yes 12/24/24 13:40 Non-Smoker Yes 12/24/24 13:40 Duration of Surgery greater No 12/24/24 13:40 than 60 minutes Number of Risk Factors 4 12/24/24 13:40 PONV Score Severe Risk 12/24/24 13:40 Any additional information?: No Height & Weight Height & Weight: Anesthesia: Height & Weight Height 5 ft 5 in 12/30/24 11:06 Weight: 88.451 kg 12/30/24 11:06 Body Mass Index (BMI) 32.4 12/30/24 11:06 Respiratory Assessment Respiratory Assessment - fret saw operator: Respiratory Tract Infection Hx - fret saw operator Hx Respiratory Tract Infection No 12/24/24 13:40 Any additional information?: No STOP Sleep Apnea STOP Sleep Apnea - fret saw operator: STOP Sleep Apnea - fret saw operator Hx Hypertension No 12/24/24 13:40 Hx Sleep Apnea No 12/24/24 13:40 CPAP No 12/24/24 13:40 BIPAP Do you snore loudly (louder No 12/24/24 13:40 than talking or can be heard Do you often feel tired/ No 12/24/24 13:40 fatigued/ sleepy during daytime? Has anyone observed you stop No 12/24/24 13:40 breathing during sleep? STOP Results Negative 12/24/24 13:40 QUESTION #5 FULL TEXT : Do you snore loudly (louder than talking or can be heard through closed doors)? 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 Specify any problems Hx of Preganancy in last 3 No 12/24/24 13:40 Months Nurse Filling Out Transfusion VCHRISTIN 12/24/24 13:40 & Questions: Date: 12/24/24 12/24/24 13:40 Time: 13:41 12/24/24 13:40 Patient unable to answer at this time (ie. confused, unrespo Any additional information?: No /Reproduction History /Reproductive History - fret saw operator: /Reproductive Hx- fret saw operator Hx Now No 12/24/24 13:40 Gestational Age (in weeks): EDC: Hx Hx Para Hx Section SAB No 12/24/24 13:40 Any additional information?: No PFSH Medical History History of steroid therapy Kidney stones High cholesterol Injury of head and neck Hoarseness History of edema Hypertension Physical exam, pre-employment Wears glasses Alcohol use Marijuana use Restless legs Migraine headache History of IBS Former smoker History of pain when walking History of echocardiogram Cardiology follow-up encounter Chest pain Back pain Left ureteral calculus Insomnia Intermittent explosive disorder Anxiety Medial epicondylitis of right elbow Chronic neck and back pain Limb weakness Knee pain Anemia Shoulder pain Arthritis MERNA (stress urinary incontinence, female) Home Medications ?Medication ?Instructions ?Recorded ?Last Taken ?Type fluticasone propionate 50 1 spray intranasal DAILY 04/05/21 Unknown History mcg/actuation nasal spray,suspension ondansetron 4 mg disintegrating 4 mg PO Q8H PRN PRN Nausea #10 tabs 12/04/21 Unknown Rx tablet lisinopril 20 1 tab PO QDAY 11/25/24 Unknown History mg-hydrochlorothiazide 12.5 mg tablet quetiapine 50 mg tablet 50 mg PO QDAY 11/25/24 Unknown History zolpidem 10 mg tablet 10 mg PO QHS 11/25/24 Unknown History lansoprazole 30 mg capsule,delayed 30 mg PO QDAY #30 caps 11/27/24 Unknown Rx release rosuvastatin 10 mg tablet 10 mg PO QHS 12/24/24 Unknown History Allergy/AdvReac Type Severity Reaction Status Date / Time docosahexanoic acid (From Allergy Hives Verified 12/30/24 11:05 [facility] Rx) iron amino acid chelate Allergy Hives Verified 12/30/24 11:05 (From [facility] Rx) methyltetrahydrofolate Allergy Hives Verified 12/30/24 11:05 gluc.,folic (From [facility] Rx) vitamins Allergy Hives Verified 12/30/24 11:05 combination no.39 (From [facility] Rx) topiramate (From Topamax) AdvReac Severe Other Verified 12/30/24 11:05 morphine AdvReac Vomiting Verified 12/30/24 11:05 Family History Mother Anxiety Brother Alcoholism Father Myocardial infarction, Onset Age: 60 Arthritis Surgical History History of esophagogastroduodenoscopy (EGD) History of ureter stent History of right knee surgery History of benign breast biopsy H/O LEEP History of endometrial ablation (~2009) History of bilateral tubal ligation (~1996) History of appendectomy History of cholecystectomy History of tonsillectomy Social History Smoking Status: Current every day smoker tobacco type: cigarettes alcohol intake: never substance use type: former substance user Date of last use: fentanyl and marijuana Review of Systems (Anesthesia) ROS Narrative System reviewed and no additional complaints, except as documented.
--- NOTE | 2024-12-30 12:00 | EGD_PTH ---
PATIENT: GARRY NELSON LOC: EN U#:[id number] AGE/SX: 49/F ROOM: RE12/30/[address]: Dr. Peter Castro DO : 1975 BED: DIS: 12/30/2024 SPEC #: [id number] RECD: 12/30/24 15:12 STATUS: NEISHA REGoran #: [id number] FUNMI: 12/30/24 12:[address]: Peter Castro DEPT: SURGICAL PATHOLOGY RECD BY: Dean Ren ENTERED: 12/31/24 07:45 SP TYPE: EGD BIOPSY [facility] DR: Dr. Celine Villalobos MD Tissues: A - Duodenum, NOS B - Gastric mucous membrane C - Esophagus, NOS Procedures: Immunohistochemical Stains Surgery Specimen Level IV HEADER OPERATION: EGD biopsy PRE-OP DIAGNOSIS: Abdominal symptoms, epigastric abdominal pain, nausea / vomiting TISSUE SUBMITTED: A- Duodenum biopsy, B- Gastric antrum biopsy, C- Distal esophagus biopsy MICROSCOPIC DIAGNOSIS A. Duodenum, biopsy: * Normal villous architecture with Nicholas gland hyperplasia. * Negative for increased intraepithelial lymphocytes. B. Stomach, antrum, biopsy: * Mild chronic inflammation with features of reactive gastropathy. * IHC is negative for H pylori organisms. C. Distal esophagus, biopsy: * Cardio-oxyntic mucosa negative for goblet cell metaplasia. * Negative for dysplasia. * No squamous mucosa seen. MICROSCOPIC DESCRIPTION Slides are reviewed. These tests were developed and their performance characteristics determined by [facility]. They may not have been cleared or approved by the U.S. Food and Drug Administration. The FDA has determined that such clearance or approval is not necessary. The above immunohistochemical/dualISH markers are ordered and reviewed by the Pathologist. GROSS DESCRIPTION A. Received in fixative is one container labeled with the patient's name and designated Duodenum biopsy. The specimen consists of one irregular fragment of light faust soft tissue that measures 0.5 x 0.4 x 0.1 cm. The specimen is totally submitted in one cassette. B. Received in fixative is one container labeled with the patient's name and designated Gastric antrum biopsy. The specimen consists of two irregular fragments of light faust soft tissue that in aggregate measure 0.8 x 0.3 x 0.1 cm. The specimen is totally submitted in one cassette. C. Received in fixative is one container labeled with the patient's name and designated Distal esophagus biopsy. The specimen consists of two irregular fragments of light faust soft tissue that in aggregate measure 0.8 x 0.5 x 0.2 cm. The specimen is totally submitted in one cassette. 12/31/2024 CPT:19371l5,79042
--- NOTE | 2024-12-30 12:17 | OP.CCLET_ITS ---
12/30/2024 Celine Villalobos [place] [id number] [place] [address] Re : Upper GI endoscopy procedure for Radhaolivia Culpruff Dear Dr. Villalobos This procedure was performed on Monday, December 30, 2024. My impressions and recommendations are as follows: Impressions : - LA Grade A reflux esophagitis with no bleeding. Biopsied. - Gastroparesis. - Bilious gastric fluid. Fluid aspiration performed. Biopsied. - No gross lesions in the first portion of the duodenum. Biopsied. Recommendations : - Discharge patient to home. - Resume previous diet. - Continue present medications. - Await pathology results. - Gastric emptying study - Workup for bile reflux gastritis and esophagitis My findings are described in the full procedure note, which is enclosed. If I can be of further assistance, please feel free to contact me at . Sincerely, Peter Castro, 12/30/2024 12:17:21 PM This report has been signed electronically.
--- NOTE | 2024-12-30 12:17 | OP.EGD_ITS ---
Patient Name: Radha Orellana Procedure Date: 12/30/2024 11:45 AM Date of : 1975 Age: 49 Procedure: Upper GI endoscopy Indications: Epigastric abdominal pain, Functional Dyspepsia Providers: Peter Castro DO Medicines: Monitored Anesthesia Care Patient Profile: This is a 49 year old female. Refer to note in patient chart for documentation of history and physical. Patient has symptoms of chronic epigastric abdominal pain. Complications: No immediate complications. Procedure: Pre-Anesthesia Assessment: - Prior to the procedure, a History and Physical was performed, and patient medications and allergies were reviewed. The patient is competent. The risks and benefits of the procedure and the sedation options and risks were discussed with the patient. All questions were answered and informed consent was obtained. Patient identification and proposed procedure were verified by the physician in the pre-procedure area. Mental Status Examination: alert and oriented. Airway Examination: normal oropharyngeal airway and neck mobility. Respiratory Examination: clear to auscultation. CV Examination: normal. Prophylactic Antibiotics: The patient does not require prophylactic antibiotics. Prior Anticoagulants: The patient has taken no anticoagulant or antiplatelet agents except for NSAID medication. ASA Grade Assessment: III - A patient with severe systemic disease. After reviewing the risks and benefits, the patient was deemed in satisfactory condition to undergo the procedure. The anesthesia plan was to use monitored anesthesia care (MAC). Immediately prior to administration of medications, the patient was re-assessed for adequacy to receive sedatives. The heart rate, respiratory rate, oxygen saturations, blood pressure, adequacy of pulmonary ventilation, and response to care were monitored throughout the procedure. The physical status of the patient was re-assessed after the procedure. After obtaining informed consent, the endoscope was passed under direct vision. Throughout the procedure, the patient's blood pressure, pulse, and oxygen saturations were monitored continuously. The Endoscope was introduced through the mouth, and advanced to the second part of duodenum. The upper GI endoscopy was accomplished without difficulty. The patient tolerated the procedure well. Scope In: 12:05:24 PM Scope Out: 12:10:10 PM Total Procedure Duration Time 0 hours 4 minutes 46 seconds Findings: LA Grade A (one or more mucosal breaks less than 5 mm, not extending between tops of 2 mucosal folds) esophagitis with no bleeding was found 36 to 39 cm from the incisors. Biopsies were taken with a cold forceps for histology. Verification of patient identification for the specimen was done. Estimated blood loss was minimal. Suspect gastroparesis due to absence of peristalsis, patient symptoms and retained gastric contents. Bilious fluid was found in the entire examined stomach. Fluid aspiration was performed. Verification of patient identification for the specimen was done. Estimated blood loss was minimal. Biopsies were taken with a cold forceps for histology. Verification of patient identification for the specimen was done. Estimated blood loss was minimal. Biopsies were taken with a cold forceps for Helicobacter pylori testing. Verification of patient identification for the specimen was done. Estimated blood loss was minimal. No gross lesions were noted in the first portion of the duodenum. Biopsies were taken with a cold forceps for histology. Verification of patient identification for the specimen was done. Estimated blood loss was minimal. Impression: - LA Grade A reflux esophagitis with no bleeding. Biopsied. - Gastroparesis. - Bilious gastric fluid. Fluid aspiration performed. Biopsied. - No gross lesions in the first portion of the duodenum. Biopsied. Recommendation: - Discharge patient to home. - Resume previous diet. - Continue present medications. - Await pathology results. - Gastric emptying study - Workup for bile reflux gastritis and esophagitis Procedure Code(s): --- Professional --- 51526, Esophagogastroduodenoscopy, flexible, transoral; with biopsy, single or multiple CPT copyright 2021 [employer]. All rights reserved. The codes documented in this report are preliminary and upon cook frozen dessert review may be revised to meet current compliance requirements. Peter Castro DO 12/30/2024 12:17:21 PM This report has been signed electronically. Number of Addenda: 0 Note Initiated On: 12/30/2024 11:45 AM
--- NOTE | 2024-12-30 12:17 | PCM.POST.ANE ---
Anesthesia: Postop Eval I Current Vital Signs Temperature: 97 F Pulse Rate: 86 Blood Pressure: 134/83 Respiratory Rate: 14 Pulse Ox: 98 Oxygen Delivery Method: Room Air Assessment Airway patent: Yes Spontaneous unlabored respirations: Yes Mental status: Awake nausea: No Vomiting: No Anesthesia Complication: No Fluid Hydration Crystalloid volume administer (ml): 10 Total IV fluid infused: 10 Progress Note Anesthesia document: Postop Eval 1 completed: Yes
--- NOTE | 2024-12-30 15:00 | POSTOPAN2_ITS ---
Anesthesia Postop Eval I Sum Postop Eval Completion status Anesthesia document: Postop Eval 1 completed: Yes Anesthesia Postop Eval I Summary Anesthesia Postop Eval I Summary: Anesthesia Postop Eval I: Assessment Summary Airway patent Yes 12/30/24 12:18 [email or web address] Spontaneous unlabored Yes 12/30/24 12:18 [email or web address] respirations Mental status Awake 12/30/24 12:18 [email or web address] [email or web address] nausea No 12/30/24 12:18 [email or web address] Vomiting No 12/30/24 12:18 [email or web address] Anesthesia Postop Eval I: Fluid Summary Crystalloid volume administer 10 12/30/24 12:18 [email or web address] (ml) Colloids volume administered ( ml) Blood Product volume administered (ml) Total IV fluid infused 10 12/30/24 12:18 [email or web address] Anesthesia Postop Eval I: Summary Notes Anesthesia Complication No 12/30/24 12:18 [email or web address] Anesthesia Complication Comment: Post-operative progress note Anesthesia: Postop Eval II Evaluation Mental status: Awake Pain Level: 2 nausea: No Vomiting: No
--- NOTE | 2024-12-30 15:00 | PCM.POSTANE2 ---
Anesthesia Postop Eval I Sum Postop Eval Completion status Anesthesia document: Postop Eval 1 completed: Yes Anesthesia Postop Eval I Summary Anesthesia Postop Eval I Summary: Anesthesia Postop Eval I: Assessment Summary Airway patent Yes 12/30/24 12:18 [email or web address] Spontaneous unlabored Yes 12/30/24 12:18 [email or web address] respirations Mental status Awake 12/30/24 12:18 [email or web address] [email or web address] nausea No 12/30/24 12:18 [email or web address] Vomiting No 12/30/24 12:18 [email or web address] [email or web address] Anesthesia Postop Eval I: Fluid Summary Crystalloid volume administer 10 12/30/24 12:18 [email or web address] (ml) Colloids volume administered ( ml) Blood Product volume administered (ml) Total IV fluid infused 10 12/30/24 12:18 [email or web address] Anesthesia Postop Eval I: Summary Notes Anesthesia Complication No 12/30/24 12:18 [email or web address] Anesthesia Complication Comment: Post-operative progress note Anesthesia: Postop Eval II Evaluation Mental status: Awake Pain Level: 2 nausea: No Vomiting: No
== END 2024-12-30 13:03 | disposition home or self-care (01) ==
LOC: EN 10:51 → AC 10:51
PROVIDERS: PCP Family Medicine; Referring Provider Family Medicine; Visit Provider Internal Medicine Gastroenterology
PROC: 0DJ08ZZ Inspection of Upper Intestinal Tract, Via Natural or Artificial Opening Endoscopic (ICD-10-PCS; CPT 43235; principal; 2024-12-30 11:55)
DX: R10.13 Epigastric pain (principal); F31.9 Bipolar disorder, unspecified; K21.00 Gastro-esophageal reflux disease with esophagitis, without bleeding; E78.00 Pure hypercholesterolemia, unspecified; G47.00 Insomnia, unspecified; K31.84 Gastroparesis; I10 Essential (primary) hypertension; Z90.49 Acquired absence of other specified parts of digestive tract; Z79.899 Other long term (current) drug therapy; Z98.51 Tubal ligation status; F17.210 Nicotine dependence, cigarettes, uncomplicated; R11.2 Nausea with vomiting, unspecified; K31.89 Other diseases of stomach and duodenum
CPT/HCPCS: 43239; 88305; 88342; A4216

== ENCOUNTER → 2025-02-16 | Outpatient (CLI) | payer MEDICAID, SELFPAY ==
--- NOTE | 2025-02-16 07:50 | NM_ITS ---
PROCEDURE: GASTRIC EMPTYING STUDY - 4 HR 02/16/2025 REASON FOR EXAM: N/V COMPARISON: None. TECHNIQUE: The patient ingested a standard meal of 2 eggs, 2 slices of white bread with butter and water. There was no vomiting postprandially. Anterior and posterior planar images of the upper abdomen were obtained for 1 minute immediately following the meal at 1h, 2h and 4h if more than 10% of the activity persisted within the stomach. Regions of interest were drawn, and a geometric mean was used to calculate a [id number]. RADIOPHARMACEUTICAL: 1.1 mCi of technetium labeled sulfur colloid FINDINGS: Percent activity remaining in stomach: 1 hour 100 % (normal 37-90%) 2 hours: 100 % (normal 30-60%) 4 hours: 75 % (normal 0-10%) NM/Gastric Emptying Study - 4 HR IMPRESSION: Delayed gastric emptying. Reading Location: [place] [id number]
== END | disposition home or self-care (01) ==
LOC: NM 07:46
PROVIDERS: PCP Family Medicine; Referring Provider Nurse Practitioner Acute Care; Visit Provider Nurse Practitioner Acute Care
DX: R10.13 Epigastric pain (principal); R11.2 Nausea with vomiting, unspecified
CPT/HCPCS: 78264; A9541